=== PATIENT | male | born 1950 | race Caucasian/White ===

== ENCOUNTER 2016-03-28 08:46 | Outpatient (CLI) | payer OTHER, MEDICAID ==
[~2016-03-28] VITALS: Ht 167.6 cm; Wt 104.5 kg
[~2016-03-28 08:46] MED LIST: ADV100INH INH; ALB2.5NEB NEB; AMIO20TA PO; ASPI1TAB PO; ASPI325T PO; ASPI81TAEC PO; ATOR40TA PO; AVEL1TAB PO; Albuterol/Ipratropium NEB; CAPT62TA PO; CARV6.25 PO; CEFD1CAP8 PO; CLOP75TA2 PO; DOCU100C PO; FERR325T16 PO; FOLI1TAB2 PO; FURO40TA2 PO; FURO40VL IV; LOVE0.8I SC; METF500T PO; METO25TAB PO; MORP2SY IV; NICO14PA TD; NITR2OI TOP; NITR4TASL SL; PERC5TAB6 PO; Pantoprazole Sodium PO; RAMI1.25 PO; RAMI5CA PO; TORS20TA2 PO; TYLE325T5 PO; VITA500T88 PO; VITMTA PO; WARF4TAB52 PO
[2016-03-28] MEDS ORDERED: IRON DEXTRAN INJ 25 MG in NS 50 ML IV ONE (09:00)
[2016-03-28] MEDS ORDERED: TRAD5TAB PO (09:22)
[2016-03-28] MEDS ORDERED: NITR2PA TD (09:22)
[2016-03-28] MEDS ORDERED: HYDR10TAB PO (09:22)
[2016-03-28] MEDS ORDERED: IRON DEXTRAN INJ 975 MG in NS 250 ML IV ONE (10:00)
== END 2016-03-28 13:45 | disposition home or self-care (01) ==
LOC: M INFU 08:46
PROVIDERS: ATTEND Internal Medicine Nephrology
DX: D50.9 Iron deficiency anemia, unspecified (principal)
CPT/HCPCS: 96365; 96366; J1750

== ENCOUNTER → 2016-04-11 | Outpatient (REF) | payer OTHER, MEDICAID ==
[~2016-04-11] MED LIST changes: +ASCO500T PO; +FERR325T PO; +HYDR-4266 PO; +HYDR10TAB PO; +NITR2PA TD; +RANI150T PO; +TRAD5TAB PO; +WARF-20 PO; +WARF4TAB51 PO
[2016-04-11 15:50] LABS: ALBUMIN 3.4 GM/DL (3.2-5.2); BILIRUBIN,TOTAL 0.2 MG/DL (0.2-1.0); CALCIUM LEVEL 9.2 MG/DL (8.8-10.2); CREATININE FOR GFR 2.14 MG/DL (0.70-1.30); MAGNESIUM LEVEL 2.4 MG/DL (1.8-2.4); PERCENT SATURATION 19.2 % (19.7-37.4); TOTAL PROTEIN 6.8 GM/DL (6.4-8.2)
[2016-04-11 15:57] LABS: MEAN CORPUSCULAR HEMOGLOBIN 28.2 pg (27.0-33.0); MEAN CORPUSCULAR HGB CONC 30.6 g/dl (32.0-36.5); MEAN CORPUSCULAR VOLUME 92.2 fl (80.0-96.0); RED CELL DISTRIBUTION WIDTH 16.2 % (11.5-14.5); WHITE BLOOD COUNT 13.8 K/mm3 (4.0-10.0)
[2016-04-11 15:58] LABS: POTASSIUM SERUM 5.4 MEQ/L (3.5-5.1)
== END ==
LOC: M SFHCSACK 08:15
PROVIDERS: ATTEND Physician Assistant
DX: D50.9 Iron deficiency anemia, unspecified (principal); I10 Essential (primary) hypertension; E11.69 Type 2 diabetes mellitus with other specified complication; K21.9 Gastro-esophageal reflux disease without esophagitis

== ENCOUNTER 2016-05-02 22:07 | Inpatient (IN) | payer OTHER, MEDICAID ==
[~2016-05-02] VITALS: Ht 167.6 cm; Wt 106.7 kg
[~2016-05-02 22:07] MED LIST changes: -ASCO500T PO; -FERR325T PO; -HYDR-4266 PO; -RANI150T PO; -WARF-20 PO; -WARF4TAB51 PO
[2016-05-02] MEDS ORDERED: PANTOPRAZOLE 40MG INJ (PROTONIX) (C9113) As Ordered ONE (22:41)
[2016-05-02 22:53] LABS: BASO # 0.1 K/mm3 (0.0-0.2); BASO % 0.6 % (0.0-1.0); EOS # 0.6 K/mm3 (0.0-0.50); EOS % 4.7 % (0.0-3.0); LARGE UNSTAINED CELL # 0.3 K/mm3 (0.0-0.4); LARGE UNSTAINED CELL % 2.4 % (0.0-4.0); LYMPH # 2.8 K/mm3 (1.5-4.5); LYMPH % 18.1 % (24.0-44.0); MEAN CORPUSCULAR HEMOGLOBIN 27.4 pg (27.0-33.0); MEAN CORPUSCULAR HGB CONC 29.9 g/dl (32.0-36.5); MEAN CORPUSCULAR VOLUME 91.5 fl (80.0-96.0); MONO # 0.8 K/mm3 (0.0-0.8); MONO % 6.2 % (0.0-5.0); NEUTROPHILS # 9.3 K/mm3 (1.8-7.7); PLATELET COUNT, AUTOMATED 394 k/mm3 (150-450); RED CELL DISTRIBUTION WIDTH 17.4 % (11.5-14.5); WHITE BLOOD COUNT 13.6 K/mm3 (4.0-10.0)
[2016-05-02 23:01] LABS: CALCIUM LEVEL 8.8 MG/DL (8.8-10.2); CREATININE FOR GFR 2.26 MG/DL (0.70-1.30); POTASSIUM SERUM 4.9 MEQ/L (3.5-5.1)
[2016-05-02 23:14] LABS: INR 6.72
[2016-05-02] MEDS ORDERED: PHYTONADIONE 10MG/ML INJECTION (J3430) As Ordered ONE (23:21)
[2016-05-02] MEDS ORDERED: ONDANSETRON 4MG/2ML VIAL (J2405) IV PRN (23:45)
[2016-05-02] MEDS ORDERED: DEXTROSE 50% 50 ML SYRINGE IV PRN (23:45)
[2016-05-02] MEDS ORDERED: ACETAMINOPHEN TAB 650MG DOSE (2X325MG) PO PRN (23:45)
[2016-05-02] MEDS ORDERED: GLUCOSE 4 GM CHEW TABLET PO PRN (23:45)
[2016-05-02] MEDS ORDERED: GLUCAGON FOR INJ 1 MG VIAL (J1610) SC PRN (23:45)
[2016-05-03] VITALS (7 sets, daily range): BP systolic 90–153; BP diastolic 50–95
[2016-05-03] MEDS ORDERED: FERR325T PO (00:10)
[2016-05-03] MEDS ORDERED: CARV6.25 PO (00:10)
[2016-05-03] MEDS ORDERED: WARF4TAB51 PO (00:10)
[2016-05-03] MEDS ORDERED: RANI150T PO (00:10)
[2016-05-03] MEDS ORDERED: ASPI81TAEC PO (00:10)
[2016-05-03] MEDS ORDERED: ASCO500T PO (00:10)
[2016-05-03] MEDS ORDERED: TORS20TA2 PO (00:10)
[2016-05-03] MEDS ORDERED: HYDR-4266 PO (00:10)
[2016-05-03] MEDS ORDERED: WARF-20 PO (00:10)
--- NOTE | 2016-05-03 00:45 | HPEPDOC ---
General Date of Admission May 02, 2016 at 23:37 Chief Complaint The patient is a 65-year-old male admitted with a reason for visit of Bleeding On Coumadin. Source: Patient Exam Limitations: No limitations History of Present Illness 65-year-old male with past medical history of CAD with NSTEMI on 08/23/2015, and subsequent CABG 4 on 08/24/2015 on Coumadin, diastolic heart failure, hypertension, and diabetes mellitus presented to the ER with a chief complaint of worsening shortness of breath over the last 5 days. The patient states that he has been feeling short of breath with associated malaise and fatigue during this time. He also notes feeling lightheaded and dizzy as well. He denies any fevers, chills, cough, chest pain, palpitations, abdominal pain, PND, orthopnea , increasing lower extremity swelling, or any nausea/vomiting/diarrhea. Of note , the patient does state that he has been having black colored stools, but notes that this has been evident ever since he started ferrous sulfate for his iron deficiency anemia. He has not noted any dary blood or an increase in the frequency of dark stools. He denies having an EGD or colonoscopy done, or having seen a director biologics in the past. In the ER, the patient was noted to have a hemoglobin of 5.1 and an INR of 6.72. An EKG revealed no acute ST changes compared to previous tracings. The patient's blood pressure in the ER is stable, and there are no signs of any active GI bleeding. A call was placed to the patient's cloth burler Dr. Sánchez , who has advised to reverse the patient's Coumadin effect and to discontinue the Coumadin going forward as he no longer feels that the patient needs it. The patient has been ordered 3 units of packed red blood cells, FFP, and he has also been given a dose of vitamin K here. In addition, a call was also place to Dr. Chandler of GI by the ER physician and will see the patient in consult tomorrow for evaluation for an EGD. The patient will be admitted under the hospitalist service for further evaluation and management. Home Medications Scheduled Ascorbic Acid (Ascorbic Acid) 500 Mg Tab 500 MG PO DAILY (Reported) Aspirin (Aspirin EC) 81 Mg Tabec 81 MG PO DAILY (Reported) Atorvastatin Calcium (Atorvastatin Calcium) 40 Mg Tab 40 MG PO QHS (Reported) Carvedilol (Carvedilol) 6.25 Mg Tab 6.25 MG PO BID (Reported) Ferrous Sulfate (Ferrous Sulfate) 325 Mg Tab 325 MG PO DAILY (Reported) Hydralazine HCl (Hydralazine HCl) 25 Mg Tab 25 MG PO TID (Reported) Linagliptin Base (Tradjenta) 5 Mg Tab 5 MG PO DAILY (Reported) Metformin Hydrochloride (Metformin HCl) 500 Mg Tab 500 MG PO BID (Reported) Multivitamins *[facility]OCK[facility]* (Thera M Plus *[facility]OCK[facility]*) 1 Tab Tab 1 TAB PO DAILY (Reported) Nitroglycerin (Nitroglycerin Transdermal 0.2MG) 1 Patch Tdsy 1 PATCH TD DAILY ( Reported) Torsemide (Torsemide) 20 Mg Tab 30 MG PO BID (Reported) Warfarin Sod (Warfarin Sodium) 4 Mg Tab 4 MG PO 3XW (Reported) Warfarin Sod (Warfarin Sodium) 2 Mg Tab 2 MG PO 4XWK (Reported) Scheduled PRN Ranitidine HCl (Ranitidine HCl) 150 Mg Tab 1 TAB PO DAILY PRN PRN ACID REFLUX ( Reported) Allergies Coded Allergies: No Known Allergies (Unverified , 08/23/15) Past Medical History Medical History As noted in HPI. Family History Significant Family History: No pertinent family hx Social History * Smoker: former Smoker Alcohol: denies Drugs: denies Review of Symptoms Other systems 10 point review of systems negative unless otherwise specified in HPI. Physical Examination General Exam: Positive: Alert, Cooperative, No Acute Distress ENT Exam: Positive: Atraumatic, Mucous membr. moist/pink Neck Exam: Negative: JVD Chest Exam: Positive: Clear to auscultation, Normal air movement Heart Exam: Positive: Normal S1, Normal S2, Rate Normal Abdomen Exam: Positive: Soft, Negative: Tenderness Extremity Exam: Negative: Swelling, Tenderness Laboratory Data Labs 24H Laboratory Tests 2 05/02/16 22:14: Anion Gap 10, White Blood Count 13.6H, Red Blood Count 1.86L, Hemoglobin 5.1*L, Hematocrit 17.0L, Mean Corpuscular Volume 91.5, Mean Corpuscular Hemoglobin 27.4 , Mean Corpuscular Hemoglobin Concent 29.9L, Red Cell Distribution Width 17.4H, Platelet Count 394, Neutrophils (%) (Auto) 68.0H, Lymphocytes (%) (Auto) 18.1L, Monocytes (%) (Auto) 6.2H, Eosinophils (%) (Auto) 4.7H, Basophils (%) (Auto) 0.6 , Neutrophils # (Auto) 9.3H, Lymphocytes # (Auto) 2.8, Monocytes # (Auto) 0.8, Eosinophils # (Auto) 0.6H, Basophils # (Auto) 0.1, Blood Urea Nitrogen 131H, Creatinine 2.26H, Sodium Level 146H, Potassium Level 4.9, Chloride Level 109H, Carbon Dioxide Level 27, Calcium Level 8.8, Glomerular Filtration Rate 31.0L, Large Unclassified Cells # 0.3, Large Unclassified Cells % 2.4, Prothromb Time International Ratio 6.72*H, Prothrombin Time 58.2H CBC/BMP Laboratory Tests 05/02/16 22:14 Calcium Level 8.8, Red Blood Count 1.86 L, Mean Corpuscular Volume 91.5, Mean Corpuscular Hemoglobin 27.4, Mean Corpuscular Hemoglobin Concent 29.9 L, Red Cell Distribution Width 17.4 H, Neutrophils (%) (Auto) 68.0 H, Lymphocytes (%) ( Auto) 18.1 L, Monocytes (%) (Auto) 6.2 H, Eosinophils (%) (Auto) 4.7 H, Basophils (%) (Auto) 0.6, Neutrophils # (Auto) 9.3 H, Lymphocytes # (Auto) 2.8, Monocytes # (Auto) 0.8, Eosinophils # (Auto) 0.6 H, Basophils # (Auto) 0.1 Plan / VTE VTE Prophylaxis Ordered?: Yes Plan Plan Symptomatic anemia secondary to Coumadin coagulopathy Admit to the PCU Hemoglobin noted to be 5.1 and INR noted to be 6.7 to 3 units of packed red blood cells, and FFP have been ordered The patient has been administered a dose of vitamin K in the ER The patient's Coumadin will be discontinued, and no longer is indicated moving forward as per Dr. Sánchez cardiology No active GI bleeding at this time-Dr. Chandler of GI called by the ER physician, will see the patient in consult for evaluation for an EGD We will keep the patient nothing by mouth Continue on Protonix We will repeat CBC and INR in the a.m. Acute on chronic kidney injury Likely secondary to intravascular volume depletion Serum creatinine noted to be 2.26, baseline closer to 1.8-2.0 Patient has received some gentle IV fluid hydration in the ER We'll transfuse blood products as noted above Repeat BMP in a.m. Coronary artery disease status post NSTEMI, and subsequent CABG 4 in August 2015 On aspirin, Coreg, and statin Hypertension, stable Continue BP meds with holding parameters Type 2 diabetes mellitus Continue on insulin sliding scale History of Diastolic congestive heart failure Does not appear to be in decompensated state at this time We'll continue torsemide 30 mg twice a day Patient may need an additional dose of torsemide between receiving blood products We will continue to monitor his volume status DVT prophylaxis-TEDs The patient will be admitted under the service of Dr. Camacho who will start to follow the patient on 05/03/16 at 7am. LACEY CRUZ MD May 03, 2016 00:45
--- NOTE | 2016-05-03 02:06 | REP ---
Clinical: Acute shortness of breath . Comparison: 09/06/2015 . Findings: The mediastinum and cardiac silhouette are stable and within normal limits for portable technique. The lung brady are clear without acute consolidation, effusion, or pneumothorax. Skeletal structures are intact. Impression: Normal portable chest x-ray Signed by Jim Higginbotham MD 05/03/2016 01:57 A
[2016-05-03] MEDS: HumaLOG INSULIN (NovoLOG) PER UNIT SC SCH ×4 (07:30→21:00)
[2016-05-03] MEDS ORDERED: MULTIVITAMINS/MINERALS THERAP 1 TAB PO SCH (09:00)
[2016-05-03] MEDS ORDERED: FERROUS SULFATE 325MG TAB PO SCH (09:00)
[2016-05-03] MEDS ORDERED: ASPIRIN 81 MG ENTERIC TAB PO SCH (09:00)
[2016-05-03] MEDS ORDERED: TORSEMIDE 10 MG TABLET PO SCH (09:00)
[2016-05-03] MEDS: SUCRALFATE SUSP 1GM/10ML UD PO SCH ×3 (09:47→17:48)
[2016-05-03] MEDS: PANTOPRAZOLE 40MG INJ (PROTONIX) (C9113) IV SCH ×2 (09:49→21:02)
[2016-05-03] MEDS: ASCORBIC ACID 500 MG TAB PO SCH (09:49)
[2016-05-03] MEDS: CARVedilol 6.25 MG TAB PO SCH ×2 (09:49→20:58)
[2016-05-03] MEDS: **hydrALAZINE HCL** 25 MG TAB PO SCH ×3 (09:50→21:21)
[2016-05-03 11:02] LABS: INR 3.17
[2016-05-03 11:08] LABS: REASON FOR REVIEW COMPREHENSIVE REVIEW
[2016-05-03 11:09] LABS: WHITE BLOOD COUNT 11.6 K/mm3 (4.0-10.0)
[2016-05-03 11:10] LABS: MEAN CORPUSCULAR HEMOGLOBIN 28.5 pg (27.0-33.0); MEAN CORPUSCULAR HGB CONC 31.5 g/dl (32.0-36.5); MEAN CORPUSCULAR VOLUME 90.4 fl (80.0-96.0); PLATELET COUNT, AUTOMATED 320 k/mm3 (150-450); RED CELL DISTRIBUTION WIDTH 16.2 % (11.5-14.5); RETIC HEMOGLOBIN CONTENT CHr 29.4 PG (24-36); RETICULOCYTE ABSOLUTE ADVIA212 119 x10(9)/L (17-77)
[2016-05-03 11:15] LABS: CALCIUM LEVEL 8.2 MG/DL (8.8-10.2); CREATININE FOR GFR 2.06 MG/DL (0.70-1.30); GLOMERULAR FILTRATION RATE 34.5 (>49); PERCENT SATURATION 88.4 % (19.7-37.4); POTASSIUM SERUM 4.6 MEQ/L (3.5-5.1)
--- NOTE | 2016-05-03 11:51 | IPN ---
DATE: 05/03/2016 Patient seen and examined at the bedside. Chart has been reviewed. This morning, patient does not complain of any chest pain, pressure, tightness, palpitations, lightheadedness, no shortness of breath. Some fatigue. No dark tarry stools in the emergency room but says had dark melanotic stools at home. Vital signs: Temperature is afebrile, blood pressure 147/66, heart rate is 85 sinus rhythm. Generally, patient is awake, alert, oriented times three, answers questions appropriately. No cyanosis. Slight pallor. No icterus or jaundice. No jugular venous distention. No thyromegaly. Lungs: Diminished but clear to auscultation. No wheezing, rales or rhonchi. Heart: S1, S2. Sinus rhythm. Prior median sternotomy scar that is well healed. Abdomen: Soft, nontender, nondistended. Obese abdomen. Positive bowel sounds. Extremities: Trace edema. 05/02/2016: CBC and metabolic panel have been reviewed. No current blood work on 05/03/2016. ASSESSMENT AND PLAN: This is a 65-year-old male with prior history of coronary artery disease (CAD, non-ST elevation myocardial infarction (MO) on 08/23/2015 with subsequent coronary artery bypass graft (CABG) times four vessels on 08/24/2015, on Coumadin secondary to small blood clot, diastolic heart failure, hypertension, type 2 diabetes and obesity, presents to the emergency room complaining of shortness of breath over the past 5 days, malaise and fatigue, some lightheadedness and dizziness without fever or chills, cough, chest pain, palpitations, abdominal pain, PND. He has noted some black tarry stools and had been on ferrous sulfate for iron deficiency anemia. Denes any bright red blood per rectum, hematemesis. No prior endoscopies or colonoscopies in the past. Patient was found to have a hemoglobin of 5.1, INR of 6.72. EKG showed no acute changes per Dr. Méndez, hospitalist addiction professional who admitted the patient. Patient's slurry blender Dr. Sánchez recommended reversal of the Coumadin and to discontinue Coumadin in the future as the patient does not require it. So far, patient has received 3 units of red blood cell transfusion, fresh frozen plasma and a dose of vitamin K. Dr. Chandler, oil pit attendant, is being consulted for symptomatic anemia secondary to GI bleed from Coumadin coagulopathy. IMPRESSION: 1. Symptomatic anemia/Acute blood loss anemia. . Patient will be transfused 3 units of red blood cells, fresh frozen plasma and vitamin K have been used to reverse the effects of Coumadin due to Coumadin coagulopathy. Continue with GI workup with endoscopy with Dr. Chandler and possible colonoscopy. Nothing but mouth currently and on Protonix. Continue with hemoglobin and hematocrit checks every 6 hours, monitor for active bleeding, avoid non-steroidal anti-inflammatory drugs (NSAID)s and other anticoagulants. 2. Coumadin coagulopathy. Patient's Coumadin will be stopped. He had been taking the Coumadin for a clot status post coronary artery bypass graft (CABG). Per his slurry blender Dr. Sánchez, may discontinued this all together after discharge. Will reverse with FFP until INR<1.5 3. History of coronary artery disease (CAD), non-ST elevation myocardial infarction (MO) with complaints of shortness of breath. Cardiac markers have been cycled. Continue to monitor for acute ischemia in light of severe anemia. Patient has had prior history of CABG times four vessels in August 2015. He is continued on Coreg and statin. Will hold off on patient's aspirin for now. 4. Acute on chronic kidney disease. Baseline creatinine is 1.8 to 2. Continue with gentle fluid hydration due to history of diastolic heart failure. 5. Type 2 diabetes. Continue with hypoglycemic protocol, sliding scale every 6 hours while nothing by mouth and before food nightly once patient resumes a diet. 6. Hypertension, stable. Continue on Coreg. 7. Hyperlipidemia, continue on statin. 8. History of diastolic heart failure, appears to be compensated for now. He is currently n.p.o. May resume his home dose of torsemide 30 twice daily. 9. Deep venous thrombosis (DVT) prophylaxis. compression stockings. [facility]
[2016-05-03] MEDS ORDERED: FUROSEMIDE 20 MG/2 ML VIAL (J1940) IV SCH (13:00)
[2016-05-03] MEDS ORDERED: FUROSEMIDE 20 MG/2 ML VIAL (J1940) IV ONE (14:00)
[2016-05-03] MEDS ORDERED: GOLYTELY SOLN 4000 ML BTL PO ONE (15:00)
--- NOTE | 2016-05-03 16:31 | EDDOCDS ---
Nurse's Notes [facility] Name: Stephen Bass Age: 65 yrs Sex: Male : 1950 Arrival Date: 05/02/2016 Time: 22:07 Bed 20 Private MD: Briana Jara PA-C Diagnosis: Gastrointestinal hemorrhage, unspecified-upper;Adverse effect of anticoagulant antagonists, vitamin K and other coagulants;Anemia, unspecified-acute blood loss;Acute kidney failure Presentation: 05/02 22:11 Presenting complaint: EMS states: pt started feeling weak for the past few days, pt c/o mlc arms and legs feeling weak. pt states he didn't eat yesterday and ate a half of a sandwich this AM at approx 10:30 AM. pt c/o feeling SOB. The last date and time the patient was known to be well was was at an unknown time on an unknown date. No acute neurological deficit is noted. Pre-hospital glucose is not applicable to this patient. Adult Sepsis Screening: The patient does not have new or worsening altered mentation. Patient has a respiratory rate of greater than or equal to 22 (1 point). Systolic blood pressure is greater than 100. Patient has a qSOFA score of 0- Negative Sepsis Screen. Suicide/Homicide risk assessment- the patient denies having any suicidal and/or homicidal ideations and does not present with any other emotional, behavioral or mental health complaints. Status: Patient is not a passenger service representative or dependent. Transition of care: patient was not received from another setting of care. 22:11 Acuity: CHAU Level 3 [facility] 22:11 Method Of Arrival: Ambulance [facility] Triage Assessment: 22:22 The onset of the patients symptoms was more than three hours ago. General: Appears ill, mlc Behavior is cooperative. Pain: Denies pain. The patient is triaged at the bedside. See Assessment in Nurses Notes section of ED record. Neurological: Level of Consciousness is awake, alert, obeys commands, Oriented to person, place, time, Reports weakness. Respiratory: Airway is patent Respiratory effort is even, labored, Respiratory pattern is regular. Derm: Skin is pale. Historical: - Allergies: No known drug Allergies; - Home Meds: 1. Coumadin MWF 4mg, Tue Thur Sat Sun 2mg Oral tab 1 tab once daily (Last dose: 05/02/2016 16:00) 2. metformin 1,000 mg Oral tab 1 tab 2 times per day (Last dose: 05/02/2016 16:00) 3. furosemide 40 mg Oral tab 1 tab 2 times per day (Last dose: 05/02/2016 16:00) 4. aspirin 81 mg Oral chew 1 tab once daily (Last dose: 05/02/2016 04:00) 5. atorvastatin 40 mg oral tab 1 tab once daily (Last dose: 05/02/2016 16:00) 6. carvedilol 6.25 mg oral tab 1 tab daily 7. ascorbic acid 500 mg oral TbER daily ran out 8. multivitamin Oral cap daily 9. unknown diabetic med 10. hydralazine 25 mg Oral tab three times a day 11. torsemide 20 mg oral tab Unknown - PMHx: Diabetes - NIDDM: controlled; Hypertension; WA; - PSHx: Cataract Surgery- Bilateral; cabag x 4; - The history from nurses notes was reviewed: and I agree with what is documented. - Social history: Smoking status: Patient states former smoker of tobacco. No barriers to communication noted, The patient speaks fluent Greek. - Family history: Not pertinent. - : The pt / caregiver states he / she is on anticoagulants: coumadin. Home medication list is obtained from the patient, [email or web address] import data. - Hospitalizations: : No recent hospitalization is reported. - Exposure Risk Screening:: None identified. - Immunization history:: All immunizations up-to-date. - Social history:: the patient is a non-smoker, the patient does not drink alcohol. Screenin:26 Screening information is obtained from the patient. Fall risk: At risk due to age. mlc Assistance ADL's: requires no assistance with activities of daily living. Abuse/DV Screen: The patient / caregiver reports he/she is: not in a situation that causes fear, pain or injury. Nutritional screening: No deficits noted. home support is adequate. 05/03 02:35 Advance Directives: Currently, there is a health care proxy, Yoandy Bass, son. There is mlc no active DNR order. There is an active Power of Dope Edger, Yoandy Bass, son. Assessment: 05/02 22:38 General: Appears ill, Behavior is cooperative. Pain: Denies pain. Neurological: Level mlc of Consciousness is awake, alert, obeys commands, Oriented to person, place, time. Cardiovascular: Heart tones S1 S2 present Rhythm is irregular. Respiratory: Airway is patent Respiratory effort is labored, Respiratory pattern is regular, Breath sounds are diminished Breath sounds with wheezes expiratory. GI: Abdomen is obese, Bowel sounds present X 4 quads. Abd is soft X 4 quads. Derm: Skin is pale. 23:28 Reassessment: Patient appears in no apparent distress at this time. Patient states mlc symptoms have not improved. pt resting comfortably in bed, pt medicated per order. IV fluids infusing per order. 05/03 00:39 General: blood infusing per order. pt resting comfortably in bed. resp easy/unlabored. mlc lung sounds diminished. pt offers no complaints. . 01:30 General: Appears in no apparent distress, comfortable, to be sleeping. General: blood mlc transfusing per order. Respiratory: Airway is patent Respiratory effort is even, unlabored, Respiratory pattern is regular. 02:33 General: Appears in no apparent distress, comfortable, Behavior is cooperative. mlc General: blood transfusing per order. . Pain: Denies pain. Neurological: Level of Consciousness is awake, alert, Oriented to person, place, time. Respiratory: Airway is patent Respiratory effort is even, unlabored, Respiratory pattern is regular. Derm: Skin is pale. 03:30 Reassessment: Patient appears in no apparent distress at this time. Respiratory: Breath mlc sounds are diminished bilaterally. Breath sounds with wheezes expiratory. 03:30 General: blood transfusing per order. mlc 04:28 General: 2nd unit of blood complete. resp easy/unlabored. pt offers no complaints, pt mlc watching tv. . 05:10 Reassessment: Patient appears in no apparent distress at this time. pt offers no mlc complaints. resp easy/unlabored. . 06:16 General: Appears in no apparent distress, comfortable, Behavior is cooperative. mlc Neurological: Level of Consciousness is awake, alert, Oriented to person, place, time. Cardiovascular: Rhythm is irregular. Respiratory: Breath sounds are diminished bilaterally. Breath sounds with wheezes expiratory. 06:18 General: report given to SANDRA Lee. [facility] Vital Signs: 05/02 22:14 BP 147 / 82 LA Sitting (auto/reg); Pulse 87 MON; Resp 22 S; Temp 98.7(O); Pulse Ox 100% cln on R/A; Weight 105.69 kg (R); Height 5 ft. 6 in. (167.64 cm) (R); Pain 0/10; 22:26 BP 120 / 55 (auto/); mlc 22:27 Pulse 90 MON; Pulse Ox 90% ; mlc 22:56 Pulse 82 MON; Pulse Ox 100% ; mlc 22:56 BP 125 / 51 (auto/); mlc 23:26 BP 145 / 90 (auto/); mlc 23:26 Pulse 82 MON; Pulse Ox 100% ; mlc 23:57 Pulse 84 MON; Pulse Ox 100% ; mlc 05/03 00:05 BP 113 / 62 (auto/); mlc 00:07 Pulse 84 MON; Pulse Ox 100% ; mlc 00:26 BP 115 / 56 (auto/); mlc 00:27 Pulse 80 MON; Pulse Ox 99% ; mlc 00:34 BP 118 / 56 (auto/); mlc 00:35 Pulse 80 MON; Pulse Ox 98% ; mlc 00:56 BP 123 / 60 (auto/); mlc 00:57 Pulse 80 MON; Pulse Ox 99% ; mlc 01:20 Pulse 82 MON; Pulse Ox 98% ; mlc 01:20 BP 134 / 55 (auto/); mlc 01:26 BP 116 / 54 (auto/); mlc 01:26 Pulse 80 MON; Pulse Ox 98% ; mlc 01:50 Pulse 80 MON; Resp 20; Pulse Ox 99% ; mlc 01:56 BP 119 / 59 (auto/); mlc 01:57 Pulse 82 MON; Pulse Ox 99% ; mlc 02:00 BP 123 / 67 (auto/); mlc 02:00 Pulse 80 MON; Pulse Ox 98% ; mlc 02:22 BP 136 / 62 (auto/); mlc 02:23 Pulse 80 MON; Pulse Ox 99% ; mlc 02:26 BP 139 / 53 (auto/); mlc 02:33 Pulse 80 MON; Pulse Ox 99% ; mlc 02:35 Temp 98.1(TE); mlc 02:40 BP 132 / 58 (auto/); mlc 02:41 Pulse 80 MON; Pulse Ox 99% ; mlc 02:56 BP 127 / 68 (auto/); mlc 02:57 Pulse 82 MON; Pulse Ox 98% ; mlc 03:17 Pulse 82 MON; Pulse Ox 99% ; mlc 03:23 Pulse 84 MON; Pulse Ox 99% ; mlc 03:23 BP 126 / 63 (auto/); mlc 03:26 BP 147 / 65 (auto/); mlc 03:27 Pulse 82 MON; Pulse Ox 98% ; mlc 03:56 Pulse 88 MON; Pulse Ox 96% ; mlc 03:56 BP 147 / 66 (auto/); mlc 04:20 Pulse 78 MON; Pulse Ox 98% ; mlc 04:20 BP 171 / 72 (auto/); mlc 04:26 BP 134 / 58 (auto/); mlc 04:26 Pulse 78 MON; Pulse Ox 98% ; mlc 04:47 Pulse 78 MON; Pulse Ox 96% ; mlc 04:56 BP 137 / 68 (auto/); mlc 05:09 Pulse 78 MON; Pulse Ox 97% ; mlc 05:26 BP 147 / 63 (auto/); mlc 05:27 Pulse Ox 98% ; mlc 05:44 BP 155 / 89 (auto/); mlc 05:45 Pulse 78 MON; Pulse Ox 97% ; mlc 05:56 Pulse 86 MON; Pulse Ox 94% ; mlc 05:56 BP 100 / 41 (auto/); mlc 06:17 BP 113 / 65; Pulse 83; Resp 20; Temp 98.6(TE); Pulse Ox 98% on 3 lpm NC; Pain 0/10; mlc 02 22:14 Body Mass Index 37.61 (105.69 kg, 167.64 cm) cln Vitals: 02 22:26 Glucose Measurement D-stick done by EMS 242. Log In Time N/A - ambulance arrival. mlc ED Course: 22:08 Patient visited by Donte Estrada PCA. kb5 22:08 Martha Leone RN is Primary Nurse. kb5 22:08 Briana Jara is Private Physician. kb5 22:08 Patient moved to Waiting kb5 22:08 Patient moved to 17 kb5 22:12 Gilmar Vega MD is Attending Physician. pc 22:14 Triage Initiated mlc 22:15 Patient visited by Joan Lopez PCA. cln 22:35 Patient visited by Gilmar Vega MD. pc 22:38 The patient / caregiver is instructed regarding the plan of care and ED course. Cardiac mlc monitor on. Pulse ox on. NIBP on. 22:38 Inserted saline lock: 20 gauge in right antecubital area and blood collected. The mlc patient tolerated the procedure well. by Moreno Blum RN. O2 via nasal cannula \T\ 2L/min. 22:39 Patient visited by Martha Leone RN. mlc 22:40 TYPE & SCREEN Sent. mlc 22:40 INR Sent. mlc 22:40 Type and Cross, Packed Cells Sent. mlc 22:40 MED Profile Sent. mlc 22:40 CBC with Diff Sent. mlc 22:56 Notified attending ED physician of Critical lab value. H/H 5.1 &17.0. cz 23:04 EKG done. (by ED staff). Reviewed by Gilmar Vega MD. jlm 23:05 Patient visited by Brook Leigh, Import/Export Administrator. jlm 23:06 Patient visited by Martha Leone RN. mlc 23:06 Inserted saline lock: 20 gauge in left antecubital area The patient tolerated the mlc procedure well. 23:18 Notified attending ED physician of Critical lab value. pro time 58.2 and INR 6.72. cz 23:20 FFP Sent. mlc 23:21 [facility] [place] Agreement was scanned into [employer] and attached to record. pm4 23:28 Patient visited by Martha Leone RN. mlc 23:30 José Miguel Méndez is Hospitalizing Provider. pc 02/09 00:20 Blood products: PRBCs X 1 unit given. See transfusion record. mlc 00:41 Patient visited by Martha Leone RN. mlc 02:23 Blood products: PRBCs X 1 unit given. See transfusion record. mlc 02:31 Chest, 1 View Returned. EDMS 02:37 Patient visited by Martha Leone RN. mlc 03:19 Patient visited by Martha Leone RN. mlc 04:31 Patient visited by Martha Leone RN. mlc 05:11 Patient visited by Martha Leone RN. mlc 05:30 Blood products: FFP X 1 unit given. mlc 05:48 Patient visited by Martha Leone RN. mlc 06:17 No procedures done that require assistance. mlc 06:18 Patient visited by Martha Leone RN. mlc 06:18 Patient moved to 20 mlc 09:38 Primary Nurse role handed off by Martha Leone RN srm Administered Medications: 05/02 23:05 Drug: pantoprazole 80 mg [pantoprazole 40 mg intravenous solution] Route: IV; Rate: mlc bolus; Site: right antecubital; 23:05 Drug: pantoprazole 8 mg/hr [pantoprazole 40 mg intravenous solution] Route: IV; Rate: mlc 10 mL/hr; Infused Over: 72 hrs; Site: right antecubital; 05/03 03:18 Follow up: IV Status: Infusion discontinued mlc 05/02 23:13 Drug: NS 0.9% 500 ml [sodium chloride 0.9 % intravenous solution] Route: IV; Rate: mlc bolus; Site: left antecubital; 23:28 Drug: Phytonadione 5 mg [phytonadione (vitamin K1) 10 mg/mL injection solution (0.5 mlc mL)] Route: Sub-Q; Site: abdomen; Intake: 05/03 03:18 IV: 50.00ml; Total: 50.00ml. mlc 03:18 IV: 380.00ml (PRBC); Total: 430.00ml. mlc 04:30 IV: 426.00ml (PRBC); Total: 856.00ml. mlc Output: 05:10 Urine: 375.00ml (Voided); Total: 375.00ml. mlc Order Results: Lab Order: CBC with Diff; SPEC'M 05/02/16 22:14 Test: WHITE BLOOD COUNT; Value: 13.6; Range: 4.0-10.0; Abnormal: Above high normal; Units: K/mm3; Status: F Test: RED BLOOD COUNT; Value: 1.86; Range: 4.30-6.10; Abnormal: Below low normal; Units: M/mm3; Status: F Test: HEMOGLOBIN; Value: 5.1; Range: 14.0-18.0; Abnormal: Critical Low; Units: g/dl; Status: F Test: HEMATOCRIT; Value: 17.0; Range: 42.0-52.0; Abnormal: Below low normal; Units: %; Status: F Test: MEAN CORPUSCULAR VOLUME; Value: 91.5; Range: 80.0-96.0; Units: fl; Status: F Test: MEAN CORPUSCULAR HEMOGLOBIN; Value: 27.4; Range: 27.0-33.0; Units: pg; Status: F Test: MEAN CORPUSCULAR HGB CONC; Value: 29.9; Range: 32.0-36.5; Abnormal: Below low normal; Units: g/dl; Status: F Test: RED CELL DISTRIBUTION WIDTH; Value: 17.4; Range: 11.5-14.5; Abnormal: Above high normal; Units: %; Status: F Test: PLATELET COUNT, AUTOMATED; Value: 394; Range: 150-450; Units: k/mm3; Status: F Test: NEUTROPHILS %; Value: 68.0; Range: 36.0-66.0; Abnormal: Above high normal; Units: %; Status: F Test: LYMPH %; Value: 18.1; Range: 24.0-44.0; Abnormal: Below low normal; Units: %; Status: F Test: MONO %; Value: 6.2; Range: 0.0-5.0; Abnormal: Above high normal; Units: %; Status: F Test: EOS %; Value: 4.7; Range: 0.0-3.0; Abnormal: Above high normal; Units: %; Status: F Test: BASO %; Value: 0.6; Range: 0.0-1.0; Units: %; Status: F Test: LARGE UNSTAINED CELL %; Value: 2.4; Range: 0.0-4.0; Units: %; Status: F Test: NEUTROPHILS #; Value: 9.3; Range: 1.8-7.7; Abnormal: Above high normal; Units: K/mm3; Status: F Test: LYMPH #; Value: 2.8; Range: 1.5-4.5; Units: K/mm3; Status: F Test: MONO #; Value: 0.8; Range: 0.0-0.8; Units: K/mm3; Status: F Test: EOS #; Value: 0.6; Range: 0.0-0.50; Abnormal: Above high normal; Units: K/mm3; Status: F Test: BASO #; Value: 0.1; Range: 0.0-0.2; Units: K/mm3; Status: F Test: LARGE UNSTAINED CELL #; Value: 0.3; Range: 0.0-0.4; Units: K/mm3; Status: F Lab Order: [facility] Profile; [facility]' 05/02/16 22:14 Test: GLUCOSE, FASTING; Value: 166; Range: 80-110; Abnormal: Above high normal; Units: MG/DL; Status: F Test: BLOOD UREA NITROGEN; Value: 131; Range: 7-18; Abnormal: Above high normal; Units: MG/DL; Status: F Test: CREATININE FOR GFR; Value: 2.26; Range: 0.70-1.30; Abnormal: Above high normal; Units: MG/DL; Status: F Test: GLOMERULAR FILTRATION RATE; Value: 31.0; Range: >49; Abnormal: Below low normal; Status: F Test: SODIUM LEVEL; Value: 146; Range: 136-145; Abnormal: Above high normal; Units: MEQ/L; Status: F Test: POTASSIUM SERUM; Value: 4.9; Range: 3.5-5.1; Units: MEQ/L; Status: F Test: CHLORIDE LEVEL; Value: 109; Range: 98-107; Abnormal: Above high normal; Units: MEQ/L; Status: F Test: CARBON DIOXIDE LEVEL; Value: 27; Range: 21-32; Units: MEQ/L; Status: F Test: ANION GAP; Value: 10; Range: 8-16; Units: MEQ/L; Status: F Test: CALCIUM LEVEL; Value: 8.8; Range: 8.8-10.2; Units: MG/DL; Status: F Test Note: ; Units are mL/min/1.73 m2 Chronic Kidney Disease Staging per NKF: Stage I & II GFR >=60 Normal to Mildly Decreased Stage III GFR 30-59 Moderately Decreased Stage IV GFR 15-29 Severely Decreased Stage V GFR <15 Very Little GFR Left ESRD GFR <15 on FREIGHT HANDLER Lab Order: INR; SPEC'M 05/02/16 22:14 Test: PROTHROMBIN TIME; Value: 58.2; Range: 12.3-14.5; Abnormal: Above high normal; Units: SECONDS; Status: F Test: INR; Value: 6.72; Abnormal: Above upper panic limits; Status: F Test Note: ; THERAPUTIC HUMAN INR VALUES INDICATIONS NORMAL RANGES PROPHYLAXIS/TREATMENT OF: VENOUS THROMBOSIS 2.0-3.0 PULMONARY EMBOLISM 2.0-3.0 PREVENTION OF SYSTEMIC EMBOLISM FROM: TISSUE HEART VALVES 2.0-3.0 ACUTE MYOCARDIAL INFARCTION 2.0-3.0 VALVULAR HEART DISEASE 2.0-3.0 ATRIAL FIBRILLATION 2.0-3.0 MECHANICAL VALVES(HIGH RISK) 2.5-3.5 RECURRENT MYOCARDIAL INFARCTION 2.5-3.5 Lab Order: TYPE & SCREEN; SPEC'M 05/02/16 22:14 Test: BLOOD TYPE; Value: A POS; Status: F Test: AB SCREEN (INDIRECT BREE)VIS; Value: NEGATIVE; Status: F Test: IMMEDIATE SPIN CROSSMATCH; Value: [id number] A POSITIVE Compatible? Y; Status: F Test: IMMEDIATE SPIN CROSSMATCH; Value: [id number] A POSITIVE Compatible? Y; Status: F Test: IMMEDIATE SPIN CROSSMATCH; Value: [id number] A POSITIVE Compatible? Y; Status: F Test: IMMEDIATE SPIN CROSSMATCH; Value: [id number] A POSITIVE Compatible? Y; Status: F Test: IMMEDIATE SPIN CROSSMATCH; Value: [id number] A POSITIVE Compatible? Y; Status: F Lab Order: BASIC METABOLIC PROFILE; SPEC'M 05/03/16 10:33 Test: GLUCOSE, FASTING; Value: 159; Range: 80-110; Abnormal: Above high normal; Units: MG/DL; Status: F Test: BLOOD UREA NITROGEN; Value: 120; Range: 7-18; Abnormal: Above high normal; Units: MG/DL; Status: F Test: CREATININE FOR GFR; Value: 2.06; Range: 0.70-1.30; Abnormal: Above high normal; Units: MG/DL; Status: F Test: GLOMERULAR FILTRATION RATE; Value: 34.5; Range: >49; Abnormal: Below low normal; Status: F Test: SODIUM LEVEL; Value: 151; Range: 136-145; Abnormal: Above high normal; Units: MEQ/L; Status: F Test: POTASSIUM SERUM; Value: 4.6; Range: 3.5-5.1; Units: MEQ/L; Status: F Test: CHLORIDE LEVEL; Value: 115; Range: 98-107; Abnormal: Above high normal; Units: MEQ/L; Status: F Test: CARBON DIOXIDE LEVEL; Value: 26; Range: 21-32; Units: MEQ/L; Status: F Test: ANION GAP; Value: 10; Range: 8-16; Units: MEQ/L; Status: F Test: CALCIUM LEVEL; Value: 8.2; Range: 8.8-10.2; Abnormal: Below low normal; Units: MG/DL; Status: F Test Note: ; Units are mL/min/1.73 m2 Chronic Kidney Disease Staging per NKF: Stage I & II GFR >=60 Normal to Mildly Decreased Stage III GFR 30-59 Moderately Decreased Stage IV GFR 15-29 Severely Decreased Stage V GFR <15 Very Little GFR Left ESRD GFR <15 on FREIGHT HANDLER Lab Order: COMPLETE BLOOD COUNT; SPEC05/03/16 10:33 Test: WHITE BLOOD COUNT; Value: 11.6; Range: 4.0-10.0; Abnormal: Above high normal; Units: K/mm3; Status: F Test: RED BLOOD COUNT; Value: 2.58; Range: 4.30-6.10; Abnormal: Below low normal; Units: M/mm3; Status: F Test: HEMOGLOBIN; Value: 7.3; Range: 14.0-18.0; Units: g/dl; Status: F Test: HEMATOCRIT; Value: 23.3; Range: 42.0-52.0; Abnormal: Below low normal; Units: %; Status: F Test: MEAN CORPUSCULAR VOLUME; Value: 90.4; Range: 80.0-96.0; Units: fl; Status: F Test: MEAN CORPUSCULAR HEMOGLOBIN; Value: 28.5; Range: 27.0-33.0; Units: pg; Status: F Test: MEAN CORPUSCULAR HGB CONC; Value: 31.5; Range: 32.0-36.5; Abnormal: Below low normal; Units: g/dl; Status: F Test: RED CELL DISTRIBUTION WIDTH; Value: 16.2; Range: 11.5-14.5; Abnormal: Above high normal; Units: %; Status: F Test: PLATELET COUNT, AUTOMATED; Value: 320; Range: 150-450; Units: k/mm3; Status: F Lab Order: PROTHROMBIN TIME PROFILE\E\INR; 05/03/16 10:33 Test: PROTHROMBIN TIME; Value: 32.5; Range: 12.3-14.5; Abnormal: Above high normal; Units: SECONDS; Status: F Test: INR; Value: 3.17; Status: F Test Note: ; THERAPUTIC HUMAN INR VALUES INDICATIONS NORMAL RANGES PROPHYLAXIS/TREATMENT OF: VENOUS THROMBOSIS 2.0-3.0 PULMONARY EMBOLISM 2.0-3.0 PREVENTION OF SYSTEMIC EMBOLISM FROM: TISSUE HEART VALVES 2.0-3.0 ACUTE MYOCARDIAL INFARCTION 2.0-3.0 VALVULAR HEART DISEASE 2.0-3.0 ATRIAL FIBRILLATION 2.0-3.0 MECHANICAL VALVES(HIGH RISK) 2.5-3.5 RECURRENT MYOCARDIAL INFARCTION 2.5-3.5 Lab Order: PATHOLOGIST REVIEW COMPREHENSI; [facility]05/03/16 10:33 Test: SLIDE REVIEW; Value: Report; Status: F Test: SOURCE; Value: PERIPHERAL SMEAR; Status: F Test: REASON FOR REVIEW; Value: COMPREHENSIVE REVIEW; Status: F Test Note: ; Slide and/or specimen referred to Pathologist for review. Results of the review are located in the EMR Pathology module under Peripheral Smear when completed. Lab Order: RETICULOCYTE COUNT; 05/03/16 10:33 Test: RETICULOCYTE % [id number]; Value: 4.60; Range: 0.5-1.5; Abnormal: Above high normal; Units: %; Status: F Test: RETICULOCYTE ABSOLUTE [id number]; Value: 119; Range: 17-77; Abnormal: Above high normal; Units: x10(9)/L; Status: F Test: RETIC HEMOGLOBIN CONTENT CHr; Value: 29.4; Range: 24-36; Units: PG; Status: F Lab Order: TOTAL IRON BINDING CAPACIT; 05/03/16 10:33 Test: IRON (FE); Value: 251; Range: 65-175; Abnormal: Above high normal; Units: UG/DL; Status: F Test: TOTAL IRON BINDING CAPACITY; Value: 284; Range: 250-450; Units: UG/DL; Status: F Test: PERCENT SATURATION; Value: 88.4; Range: 19.7-37.4; Abnormal: Above high normal; Units: %; Status: F Lab Order: Fingerstick Blood Sugar; 05/03/16 07:48 Test: BEDSIDE GLUCOSE; Value: 173; Range: 80-115; Abnormal: Above high normal; Units: MG/DL; Status: F Lab Order: Fingerstick Blood Sugar; [facility]05/03/16 12:39 Test: BEDSIDE GLUCOSE; Value: 157; Range: 80-115; Abnormal: Above high normal; Units: MG/DL; Status: F Radiology Order: Chest, 1 View Test: Chest, 1 View REASON FOR EXAMINATION: Shortness of Breath; Clinical: Acute shortness of breath .; ; Comparison: 09/06/2015 .; ; Findings:; The mediastinum and cardiac silhouette are stable and within normal limits for; portable technique. The lung brady are clear without acute consolidation,; effusion, or pneumothorax. Skeletal structures are intact.; ; Impression:; Normal portable chest x-ray; ; ; Signed by; Jim Higginbotham MD 05/03/2016 01:57 A; Outcome: 05/02 23:30 Decision to Hospitalize by Provider. pc 05/03 16:29 Patient left the ED. ld5 Signatures: Dispatcher [employer] EDMS Gilmar Vega MD MD pc Michelson, Staci, RN RN Juan Ramon Pizano RN RN cz Bancroft, Kristopher, POURED CONCRETE WALL TECHNICIAN POURED CONCRETE WALL TECHNICIAN kb5 Mikala Perkins RN RN ld5 Brook Leigh, Import/Export Administrator Unit Martha Dhillon RN RN mlc Nichols, Crystal, POURED CONCRETE WALL TECHNICIAN POURED CONCRETE WALL TECHNICIAN sharronn Mirza Lira, Reg Reg pm4 Corrections: (The following items were deleted from the chart) 05/02 22:26 22:22 Home Meds: unknown BP med three times a day; mlc mlc 05/03 02:35 02:33 General: Appears in no apparent distress, comfortable, to be sleeping. mlc mlc 02:35 02:33 Respiratory: Airway is patent Respiratory effort is even, unlabored, Respiratory mlc pattern is regular, mlc 02:35 02:33 General: blood transfusing per order. mlc mlc MTDD
--- NOTE | 2016-05-03 16:31 | EDDOCDS ---
Physician Documentation [facility] Name: Stephen Bass Age: 65 yrs Sex: Male : 1950 Arrival Date: 05/02/2016 Time: 22:07 Bed 20 Private MD: Briana Jara PA-C Disposition: 05/02 23:28 Critical Care:. pc Disposition: 05/02/16 23:30 Hospitalization ordered by José Miguel Méndez for Inpatient Admission. Preliminary diagnosis are Gastrointestinal hemorrhage, unspecified - upper, Adverse effect of anticoagulant antagonists, vitamin K and other coagulants, Anemia, unspecified - acute blood loss, Acute kidney failure. - Bed requested for M PCU. - Status is Inpatient Admission. ld5 - Condition is Stable. - Problem is new. - Symptoms have improved. HPI: 22:48 This 65 yrs old Male presents to ER via Ambulance with complaints of Weakness.pc 22:48 The history is obtained from the patient, the patient's family/friend. He has been pc feeling progressively weaker for the past 3 weeks. He denies any infectious symptoms, fevers or chills, cough, chest pain, abdominal pain. He has black stools due to iron supplementation. He was seen by his PCP in mid-February and Mid-March, and per her records and the patient's own account of the visits, he was advised that his labs were good and that he did not need follow up until June. However, his H+H dropped from 10.7/33.21 to 7.4/24.2 and was not addressed. 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 His BUN has increased from 64 to 80 to 105 from December to March, his Cr increased from 1.49 to 1.78 to 2.14 in the same time period. Historical: - Allergies: No known drug Allergies; - Home Meds: 1. Coumadin MWF 4mg, Tue Thur Sat Sun 2mg Oral tab 1 tab once daily (Last dose: 05/02/2016 16:00) 2. metformin 1,000 mg Oral tab 1 tab 2 times per day (Last dose: 05/02/2016 16:00) 3. furosemide 40 mg Oral tab 1 tab 2 times per day (Last dose: 05/02/2016 16:00) 4. aspirin 81 mg Oral chew 1 tab once daily (Last dose: 05/02/2016 04:00) 5. atorvastatin 40 mg oral tab 1 tab once daily (Last dose: 05/02/2016 16:00) 6. carvedilol 6.25 mg oral tab 1 tab daily 7. ascorbic acid 500 mg oral TbER daily ran out 8. multivitamin Oral cap daily 9. unknown diabetic med 10. hydralazine 25 mg Oral tab three times a day 11. torsemide 20 mg oral tab Unknown - PMHx: Diabetes - NIDDM: controlled; Hypertension; [place]; - PSHx: Cataract Surgery- Bilateral; cabag x 4; - The history from nurses notes was reviewed: and I agree with what is documented. - Social history: Smoking status: Patient states former smoker of tobacco. No barriers to communication noted, The patient speaks fluent [place]. - Family history: Not pertinent. - : The pt / caregiver states he / she is on anticoagulants: coumadin. Home medication list is obtained from the patient, [employer] import data. - Hospitalizations: : No recent hospitalization is reported. - Exposure Risk Screening:: None identified. - Immunization history:: All immunizations up-to-date. - Social history:: the patient is a non-smoker, the patient does not drink alcohol. ROS: 22:48 All systems are negative except as listed. pc Exam: 22:48 General Appearance: no acute distress, alert. pc 22:48 EENT: ears, nose and throat normal, pharynx normal, mucous membranes moist pale conjunctiva. 22:48 Neck: The exam reveals no acute abnormalities. ROM is normal and painless. No nuchal rigidity is noted.. 22:48 Respiratory: no respiratory distress, normal breath sounds, PO 92% on RA. 22:48 CVS: regular pulse rate, regular rhythm, normal S1 and S2, no murmurs, strong peripheral pulses, normal capillary refill. 22:48 Abdomen: soft, non-tender, no organomegaly, normal bowel sounds, Rectal exam: stool is guaiac positive, black. 22:48 Back: normal inspection. 22:48 Skin: warm, dry, the skin appears pale, diffusely. 22:48 Extremities: The extremities have a grossly normal appearance. 22:48 Neuro: oriented x 3, cranial nerves normal as tested, no motor deficits, no sensory deficits. 22:48 Psych: normal mood. Vital Signs: 22:14 BP 147 / 82 LA Sitting (auto/reg); Pulse 87 MON; Resp 22 S; Temp 98.7(O); Pulse Ox 100% cln on R/A; Weight 105.69 kg / 233.01 lbs (R); Height 5 ft. 6 in. (167.64 cm) (R); Pain 0/10; 22:26 BP 120 / 55 (auto/); mlc 22:27 Pulse 90 MON; Pulse Ox 90% ; mlc 22:56 Pulse 82 MON; Pulse Ox 100% ; mlc 22:56 BP 125 / 51 (auto/); mlc 23:26 BP 145 / 90 (auto/); mlc 23:26 Pulse 82 MON; Pulse Ox 100% ; mlc 23:57 Pulse 84 MON; Pulse Ox 100% ; mlc 05/03 00:05 BP 113 / 62 (auto/); mlc 00:07 Pulse 84 MON; Pulse Ox 100% ; mlc 00:26 BP 115 / 56 (auto/); mlc 00:27 Pulse 80 MON; Pulse Ox 99% ; mlc 00:34 BP 118 / 56 (auto/); mlc 00:35 Pulse 80 MON; Pulse Ox 98% ; mlc 00:56 BP 123 / 60 (auto/); mlc 00:57 Pulse 80 MON; Pulse Ox 99% ; mlc 01:20 Pulse 82 MON; Pulse Ox 98% ; mlc 01:20 BP 134 / 55 (auto/); mlc 01:26 BP 116 / 54 (auto/); mlc 01:26 Pulse 80 MON; Pulse Ox 98% ; mlc 01:50 Pulse 80 MON; Resp 20; Pulse Ox 99% ; mlc 01:56 BP 119 / 59 (auto/); mlc 01:57 Pulse 82 MON; Pulse Ox 99% ; mlc 02:00 BP 123 / 67 (auto/); mlc 02:00 Pulse 80 MON; Pulse Ox 98% ; mlc 02:22 BP 136 / 62 (auto/); mlc 02:23 Pulse 80 MON; Pulse Ox 99% ; mlc 02:26 BP 139 / 53 (auto/); mlc 02:33 Pulse 80 MON; Pulse Ox 99% ; mlc 02:35 Temp 98.1(TE); mlc 02:40 BP 132 / 58 (auto/); mlc 02:41 Pulse 80 MON; Pulse Ox 99% ; mlc 02:56 BP 127 / 68 (auto/); mlc 02:57 Pulse 82 MON; Pulse Ox 98% ; mlc 03:17 Pulse 82 MON; Pulse Ox 99% ; mlc 03:23 Pulse 84 MON; Pulse Ox 99% ; mlc 03:23 BP 126 / 63 (auto/); mlc 03:26 BP 147 / 65 (auto/); mlc 03:27 Pulse 82 MON; Pulse Ox 98% ; mlc 03:56 Pulse 88 MON; Pulse Ox 96% ; mlc 03:56 BP 147 / 66 (auto/); mlc 04:20 Pulse 78 MON; Pulse Ox 98% ; mlc 04:20 BP 171 / 72 (auto/); mlc 04:26 BP 134 / 58 (auto/); mlc 04:26 Pulse 78 MON; Pulse Ox 98% ; mlc 04:47 Pulse 78 MON; Pulse Ox 96% ; mlc 04:56 BP 137 / 68 (auto/); mlc 05:09 Pulse 78 MON; Pulse Ox 97% ; mlc 05:26 BP 147 / 63 (auto/); mlc 05:27 Pulse Ox 98% ; mlc 05:44 BP 155 / 89 (auto/); mlc 05:45 Pulse 78 MON; Pulse Ox 97% ; mlc 05:56 Pulse 86 MON; Pulse Ox 94% ; mlc 05:56 BP 100 / 41 (auto/); mlc 06:17 BP 113 / 65; Pulse 83; Resp 20; Temp 98.6(TE); Pulse Ox 98% on 3 lpm NC; Pain 0/10; mlc 05/02 22:14 Body Mass Index 37.61 (105.69 kg, 167.64 cm) cln MDM: 05/02 22:37 IV Saline Lock ordered. pc 22:37 Superintendent Job/Pulse Ox/q 30 min VS ordered. pc 22:37 Oxygen at 2L/min via NC ordered. pc 22:37 Transfuse PRBC's 2 units, ensure PRBCs ordered in lab ordered. pc 22:38 CBC with Diff Ordered. EDMS 22:38 MED Profile Ordered. EDMS 22:38 INR Ordered. EDMS 22:38 pantoprazole 80 mg IV at bolus once ordered. pc 22:38 pantoprazole 8 mg/hr IV at 10 mL/hr continuous over 72 hrs; 40mg (10mL): withdraw 10mL pc from 50mL bag of NS then add protonix ordered. 22:38 IV Saline Lock ordered. pc 22:38 Chest, 1 View Ordered. EDMS 22:38 Type and Cross, Packed Cells Ordered. EDMS 22:38 ECG WITH READING ER PHYS+CARDIAG ordered. EDMS 22:39 TYPE & SCREEN Ordered. EDMS 22:48 Differential Diagnosis: UGI bleed with severe anemia on warfarin. Plan: labs, EKG, pc imaging, transfuse, admit. Test interpretation: EKG. 23:04 CBC with Diff Reviewed. pc 23:04 MED Profile Reviewed. pc 23:08 NS 0.9% 500 ml IV at bolus once ordered. pc 23:08 Financial registration complete. pm4 23:14 Physician consultation: Dr. Sathish Chandler regarding patient's condition, and will pc see patient in inpatient room. 23:16 Physician consultation: Dr. Tripp Sánchez MD was contacted at 23:16, regarding pc patient's condition, and he advises that the Coumadin can be completely reversed as he feels confident that the small left atrial clot is now resolved after 7 months of Coumadin therapy. 23:17 Phytonadione 5 mg Sub-Q once ordered. pc 23:18 FFP Ordered. EDMS 23:19 BED REQUEST+ADM ordered. EDMS 23:21 [facility] Payment Agreement was scanned into [employer] and attached to record. pm4 23:28 Data reviewed: old medical records, vital signs, nurses notes, EKG(s), lab test pc results, all radiology studies and available results. Test interpretation: LAB - all labs as ordered have been reviewed, interpreted and considered in the overall management of the clinical presentation; X-RAY - interpreted by me, 1 view chest no acute disease. The patient has been re-examined and re-evaluated. The patient's symptoms have mildly improved after treatment. Physician consultation: Dr. José Miguel Méndez was contacted at 23:29, regarding admission, and will see patient in ED, shortly. Disposition: The historical points, examination findings, and any diagnostic results supporting the provided diagnosis, were discussed with the patient or legal guardian. The need for further work-up and/or treatment in the hospital was explained. 23:54 Transfuse FFP 1 unit, ensure FFP ordered in lab ordered. pc 05/03 00:39 Admission / Observation Status ordered. EDMS 00:39 BASIC METABOLIC PROFILE Ordered. EDMS 00:39 COMPLETE BLOOD COUNT Ordered. EDMS 00:40 PROTHROMBIN TIME PROFILE\E\INR Ordered. EDMS 00:43 NPO DIET ordered. EDMS 00:45 PACKED CELLS Ordered. EDMS 06:48 PATHOLOGIST REVIEW COMPREHENSI Ordered. EDMS 06:49 RETICULOCYTE COUNT Ordered. EDMS 06:49 TOTAL IRON BINDING CAPACIT Ordered. EDMS 08:40 Fingerstick Blood Sugar Ordered. EDMS 12:48 Fingerstick Blood Sugar Ordered. EDMS 12:59 FROZEN PLASMA 24 Ordered. EDMS 12:59 CLEAR LIQUIDS DIET ordered. EDMS 12:59 NPO FOR TEST/PROCEDURE ordered. EDMS 13:04 HEMOGLOBIN & HEMATOCRIT Ordered. EDMS 13:09 BASIC METABOLIC PROFILE Ordered. EDMS 13:19 PACKED CELLS Ordered. EDMS EC/08 22:48 Rate is 82 beats/min. Rhythm is regular, Normal Sinus Rhythm with Unifocal PVCs, 1st pc degree heart block, in trigeminy. QRS [place] is Normal. RI interval is prolonged at 282 msec. QRS interval is normal. QT interval is normal. No Q waves. T waves are Normal. ST Segment is depressed in leads I, II, III, aVL, aVF, V4, V5, V6, <1mm. Clinical impression: Normal Sinus Rhythm, Nonspecific ST-T changes, 1st degree heart block, and frequent PVCs in trigeminy. No change from previous ECG in August,. Administered Medications: 23:05 Drug: pantoprazole 80 mg [pantoprazole 40 mg intravenous solution] Route: IV; Rate: mlc bolus; Site: right antecubital; 23:05 Drug: pantoprazole 8 mg/hr [pantoprazole 40 mg intravenous solution] Route: IV; Rate: mlc 10 mL/hr; Infused Over: 72 hrs; Site: right antecubital; 05/03 03:18 Follow up: IV Status: Infusion discontinued mlc 05/02 23:13 Drug: NS 0.9% 500 ml [sodium chloride 0.9 % intravenous solution] Route: IV; Rate: mlc bolus; Site: left antecubital; 23:28 Drug: Phytonadione 5 mg [phytonadione (vitamin K1) 10 mg/mL injection solution (0.5 mlc mL)] Route: Sub-Q; Site: abdomen; Critical Care Time: 23:28 Critical care time: Bedside Care: 25 minutes, Consultation: 25 minutes, Family pc Intervention: 15 minutes. Total time: 65 minutes Signatures: Dispatcher [employer] Gilmar Fletcher MD MD pc Dickerson, LauraRN RN ld5 Martha Leone RN RN mlc Christelle Serrano RN RN sls2 Mirza Lira, Reg Reg pm4 The chart was reviewed and I authenticate all verbal orders and agree with the evaluation and treatment provided.Corrections: (The following items were deleted from the chart) 22:26 22:22 Home Meds: unknown BP med three times a day; mlc mlc 23:10 22:48 He has been feeling progressively weaker for the past 3 weeks. He denies any pc infectious symptoms, fevers or chills, cough, chest pain, abdominal pain. He has black stools due to iron supplementation. He was seen by his PCP in mid-February and Mid-March, and per her records and the patient's own account of the visits, he was advised that his labs were good and that he did not need follow up until June. However, his H+H dropped from 10.7/33.21 to 7.4/24.2 and was not addressed. 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 pc 05/03 00:43 00:39 2 GRAM SODIUM DIET ordered. EDMS EDMS 00:47 00:39 PACKED CELLS ordered. EDMS EDMS 00:47 00:42 TYPE & SCREEN ordered. EDMS EDMS 06:46 06:22 TOTAL IRON BINDING CAPACIT ordered. EDMS EDMS 06:46 06:22 IRON (FE) ordered. EDMS EDMS 06:50 06:22 RETICULOCYTE COUNT ordered. EDMS EDMS 06:51 06:22 PATHOLOGIST REVIEW COMPREHENSI ordered. EDMS EDMS 06:51 06:46 TOTAL IRON BINDING CAPACIT ordered. EDMS EDMS 13:17 13:08 PACKED CELLS ordered. EDMS EDMS 13:18 13:10 TYPE & SCREEN ordered. EDMS EDMS Attachments: 05/02 23:21 [facility] Payment Agreement pm4 MTDD
[2016-05-03] MEDS: ATORVASTATIN 20 MG TAB PO SCH (21:00)
[2016-05-03 23:51] LABS: CALCIUM LEVEL 8.2 MG/DL (8.8-10.2); CREATININE FOR GFR 1.83 MG/DL (0.70-1.30); GLOMERULAR FILTRATION RATE 39.5 (>49); POTASSIUM SERUM 3.9 MEQ/L (3.5-5.1)
[2016-05-04] VITALS (8 sets, daily range): BP systolic 106–153; BP diastolic 53–85
[2016-05-04] MEDS: SUCRALFATE SUSP 1GM/10ML UD PO SCH ×5 (00:48→23:58)
[2016-05-04 02:05] LABS: MAGNESIUM LEVEL 2.4 MG/DL (1.8-2.4)
[2016-05-04] MEDS: SLF 3 ML SYR IV SCH ×3 (05:19→21:17)
[2016-05-04] MEDS ORDERED: diphenhydrAMINE INJ 50MG/ML VIAL (J1200) IV STA (05:58)
[2016-05-04] MEDS ORDERED: diphenhydrAMINE INJ 50MG/ML VIAL (J1200) As Ordered ONE (05:59)
[2016-05-04] MEDS ORDERED: GOLYTELY SOLN 4000 ML BTL PO ONE (06:00)
--- NOTE | 2016-05-04 06:11 | IPNPDOC ---
Text Note Date of Service The patient was seen on 05/04/16. NOTE Subjective: I was called to the unit this morning to evaluate patient due to and developing a rash status post FFP transfusion. Patient's nurse says he hung the FFP at 445 and around 540 patient developed hives and rash. Patient says that his neck itches. He is complaining of a little trouble breathing. Objective: Vitals: Patient stable on room air Gen.: Patient awake, verbal and able to answer questions appropriately. He does not appear to be in any acute distress Lungs: Bilateral wheezes to auscultation Integumentary: Urticarial rash present over neck and upper back Assessment / Plan: #1: Allergic reaction / transfusion reaction: Patient with mild complaint of difficulty breathing, wheezing on lung auscultation. Order placed for stat 50 mg IV diphenhydramine, order placed for as needed racemic epinephrine inhalation. Nursing instructed to keep a close eye on patient and to monitor for any signs of breathing difficulty. My preceptor for this patient encounter was physically present in the building during the encounter and was fully available. As needed, all aspects of the patient interview, examination, medical decision making process, and medical care plan development were reviewed and approved by the preceptor. Preceptor is aware and concurs with the plan as stated in the body of this note and will attest to such by his/her cosignature. VS,Fishbone, I+O VS, Fishbone, I+O Laboratory Tests 05/03/16 10:33 Calcium Level 8.2 L, Red Blood Count 2.58 L, Mean Corpuscular Volume 90.4, Mean Corpuscular Hemoglobin 28.5, Mean Corpuscular Hemoglobin Concent 31.5 L, Red Cell Distribution Width 16.2 H 05/03/16 23:24 Calcium Level 8.2 L Vital Signs Date Time Temp Pulse Resp B/P Pulse Ox O2 Delivery O2 Flow Rate FiO2 05/04/16 05:35 Room Air 05/03/16 21:21 110/81 05/03/16 20:58 67 05/03/16 17:00 2.0 05/03/16 16:30 97.8 24 94 I&O- Last 24 Hours up to 6 AM 05/04/16 06:00 Intake Total 325 ml Output Total 1700 ml Balance -1375 ml VJ MULTANI DO May 04, 2016 06:11
[2016-05-04] MEDS ORDERED: RACEPINEPHrine 2.25 % UD INHA INH PRN (06:15)
[2016-05-04 06:45] LABS: MEAN CORPUSCULAR HGB CONC 32.9 g/dl (32.0-36.5); MEAN CORPUSCULAR VOLUME 88.1 fl (80.0-96.0); RED CELL DISTRIBUTION WIDTH 17.4 % (11.5-14.5); WHITE BLOOD COUNT 13.2 K/mm3 (4.0-10.0)
[2016-05-04 06:51] LABS: INR 2.02
[2016-05-04 07:02] LABS: CALCIUM LEVEL 8.4 MG/DL (8.8-10.2); CREATININE FOR GFR 1.6 MG/DL (0.70-1.30); GLOMERULAR FILTRATION RATE 46.1 (>49)
[2016-05-04] MEDS: HumaLOG INSULIN (NovoLOG) PER UNIT SC SCH ×4 (07:30→21:00)
[2016-05-04] MEDS ORDERED: PHYTONADIONE 5 MG TAB PO ONE (07:45)
[2016-05-04] MEDS ORDERED: PHYTONADIONE 10MG/ML INJECTION (J3430) SC ONE (08:00)
[2016-05-04] MEDS: **hydrALAZINE HCL** 25 MG TAB PO SCH ×3 (09:00→21:14)
[2016-05-04] MEDS: CARVedilol 6.25 MG TAB PO SCH ×2 (09:00→21:14)
[2016-05-04 09:16] LABS: CALCIUM LEVEL 8.4 MG/DL (8.8-10.2); CREATININE FOR GFR 1.54 MG/DL (0.70-1.30); GLOMERULAR FILTRATION RATE 48.2 (>49); POTASSIUM SERUM 3.9 MEQ/L (3.5-5.1)
[2016-05-04] MEDS: ASCORBIC ACID 500 MG TAB PO SCH (09:16)
[2016-05-04] MEDS: PANTOPRAZOLE 40MG INJ (PROTONIX) (C9113) IV SCH ×2 (09:16→21:14)
[2016-05-04] MEDS: D5W 1,000 ML IV SCH ×2 (12:08→23:58)
[2016-05-04 12:25] LABS: INR 1.95
[2016-05-04 12:48] LABS: CALCIUM LEVEL 8.7 MG/DL (8.8-10.2); CREATININE FOR GFR 1.52 MG/DL (0.70-1.30); GLOMERULAR FILTRATION RATE 48.9 (>49); POTASSIUM SERUM 4.1 MEQ/L (3.5-5.1)
--- NOTE | 2016-05-04 13:11 | REP ---
Chest x-ray: Two views. History: Shortness of breath. Comparison study May 02, 2016. Findings: The patient is status post prior median sternotomy. The lungs are mildly hyperinflated. Pleural angles are sharp. No infiltrate is seen. There is mild to moderate cardiomegaly unchanged. Pulmonary vasculature is not increased. EKG monitoring electrodes overlie the chest. Impression: Cardiomegaly. Prior sternotomy. Otherwise no acute disease. Signed by Yannick Harrison MD 05/04/2016 02:59 P
[2016-05-04 18:42] LABS: CALCIUM LEVEL 8.1 MG/DL (8.8-10.2); CREATININE FOR GFR 1.33 MG/DL (0.70-1.30); GLOMERULAR FILTRATION RATE 57.1 (>49); POTASSIUM SERUM 3.8 MEQ/L (3.5-5.1)
--- NOTE | 2016-05-04 20:12 | ECGEPIP ---
Stationary ECG Study [facility] - ED Test Date: 2016-05-02 Pat Name: CLIFFORD COSME Department: Room: [place] [address] Gender: M Perfume Maker: michele : 1950 Requested By: Gilmar Richard Order Number: [id number] Reading MD: Yelitza Caputo Measurements Intervals [place] Rate: 82 P: -3 MT: 205 QRS: 36 QRSD: 110 T: 164 QT: 386 QTc: 453 Interpretive Statements SINUS RHYTHM WITH FREQUENT VENTRICULAR PREMATURE COMPLEXES ST DEVIATION AND MODERATE T-WAVE ABNORMALITY, CONSIDER LATERAL ISCHEMIA ST DEVIATION AND MODERATE T-WAVE ABNORMALITY, CONSIDER INFERIOR ISCHEMIA INCREASED ECTOPY/ST CHANGES COMPARED 09/05/15 Electronically Signed On 05-04-2016 20:12:22 EST by Yelitza Caputo
[2016-05-04] MEDS: ATORVASTATIN 20 MG TAB PO SCH (21:14)
--- NOTE | 2016-05-04 22:02 | IPN ---
DATE OF SERVICE: 05/04/2016 Patient seen and examined at the bedside. Chart has been reviewed. This morning, patient had a reaction to the fresh frozen plasma, developed some hives. No wheezing. No respiratory distress. Fresh frozen plasma was sent to the blood bank for inquiry. He had no complaints of chest pain, pressure or tightness this morning. Temperature 96.5, pulse 82, respiratory 22, blood pressure 106/58, 93% on room air. GENERAL: Patient is awake, alert, oriented to person, place and time. Answering questions appropriately. LUNGS: Very diminished, with fine crackles at the bases. HEART: S1, S2. Sinus rhythm. ABDOMEN: Obese. Soft, nontender, nondistended. Positive bowel sounds. History of age-positive trace edema. LABORATORY DATA: Hemoglobin 10, hematocrit 31. Sodium 153, creatinine 1.5. INR 2.02. ASSESSMENT AND PLAN: This is a 65-year-old male with history of coronary artery disease (CAD), non-ST elevation myocardial infarction (LA) 08/23/2015, coronary artery bypass graft (CABG) 08/24/2015, on Coumadin secondary to small blood clots, diastolic heart failure, hypertension, type 2 diabetes, obesity, presents to the emergency room (ER) complaining of shortness of breath, malaise and fatigue, lightheadedness and dizziness, without fever, chills, cough, chest pain, palpitations, abdominal pain, paroxysmal nocturnal dyspnea (PND), with black tarry stools at home, had been on ferrous sulfate for iron deficiency anemia. The patient has had no prior endoscopies or colonoscopies, was found to have a hemoglobin of 5, INR of 6.72. EKG showed no acute changes. Per patient's coin collector, recommendations are for a complete aversion of Coumadin and no future Coumadin, as the patient does not require this. So far, patient has received 5 units of red blood cells and 3 fresh frozen plasma. Patient developed a rash, treated with Benadryl and racemic epinephrine. Current INR is 2.02. CURRENT ISSUES: 1. Possible transfusion reaction to fresh frozen plasma. No active wheezing at the bedside or respiratory distress. Continue to monitor on telemetry. Await blood bank inquiry regarding patient's reaction. 2. Acute blood loss anemia. Symptomatic anemia requiring 5 units of red blood cells. Transfusion will be withheld for now to reverse the effects of Coumadin. Will provide with vitamin K and defer patient's endoscopy until he is more stabilized. 3. Acute gastrointestinal (GI) bleed with blood loss anemia. Continue with nothing by mouth status. Patient will require bowel prep again on Saturday night for endoscopy on Saturday. Stabilize the patient with reversal of Coumadin over the weekend. Continue with full supportive care. 4. Coumadin coagulopathy. Coumadin has been discontinued. He had been taking the Coumadin for a clot status post coronary artery bypass graft (CABG). Per his coin collector, Dr. Sánchez, may be discontinued altogether after discharge. This patient has received 3 packs of fresh frozen plasma, but with INR still at 2, will repeat INR at noon and try to reverse only with vitamin K for now, as we are unsure of the patient's reaction to the previous fresh frozen plasma. 5. History of coronary artery disease (CAD), non-ST elevation myocardial infarction (LA) with complaints of shortness of breath. Thought to be symptomatic anemia. Continue to monitor. Troponins are unremarkable. Hold off on aspirin for now and Coumadin. 6. Acute on chronic renal disease with hypernatremia and dehydration due to nothing by mouth status. D5W for now. 7. Type 2 diabetes. Insulin sliding scale, hypoglycemic protocol. On D5W for now. 8. Hypertension. On Coreg. 9. Hyperlipidemia. On statin. 10. History of diastolic heart failure. Appears to be compensated. We held the patient's torsemide due to hypernatremia. Patient will be given D5W at 70 an hour. Monitor for respiratory distress. MTDD
[2016-05-05 00:41] LABS: CALCIUM LEVEL 8.2 MG/DL (8.8-10.2); CREATININE FOR GFR 1.42 MG/DL (0.70-1.30); GLOMERULAR FILTRATION RATE 52.9 (>49); POTASSIUM SERUM 3.7 MEQ/L (3.5-5.1)
[2016-05-05] MEDS ORDERED: ALBUTEROL SULFATE 2.5 MG/0.5 ML INH NEB SOLN NEB ONE (00:45)
--- NOTE | 2016-05-05 01:40 | REPUSA ---
Clinical history: Shortness of breath. Comparison: None. Findings: The mediastinum and cardiac silhouette are within normal limits. The lungs are clear. No pl eural effusion or pneumothorax is seen. The osseous structures and soft tissues are unremarkable. Impression: No acute disease.
[2016-05-05 04:00] VITALS: BP 154/65
[2016-05-05] MEDS: SLF 3 ML SYR IV SCH ×3 (05:28→21:05)
[2016-05-05] MEDS: SUCRALFATE SUSP 1GM/10ML UD PO SCH ×4 (05:28→23:51)
[2016-05-05 05:46] LABS: CALCIUM LEVEL 8.2 MG/DL (8.8-10.2); CREATININE FOR GFR 1.38 MG/DL (0.70-1.30); GLOMERULAR FILTRATION RATE 54.7 (>49); POTASSIUM SERUM 3.5 MEQ/L (3.5-5.1)
[2016-05-05 05:48] LABS: MEAN CORPUSCULAR HGB CONC 31.8 g/dl (32.0-36.5); MEAN CORPUSCULAR VOLUME 91.3 fl (80.0-96.0); RED CELL DISTRIBUTION WIDTH 17.3 % (11.5-14.5); WHITE BLOOD COUNT 12.5 K/mm3 (4.0-10.0)
[2016-05-05 07:21] LABS: INR 1.66
[2016-05-05 07:30] VITALS: BP 120/69
--- NOTE | 2016-05-05 08:55 | REP ---
AP PORTABLE CHEST: 05/05/2016 at 07:18 AM. Comparison: 05/05/2016 at 01:06 a.m., 05/04/2016, 05/02/2016. Clinical history: Dyspnea. Sternotomy wires are again seen. There is no gross cardiomegaly. Some underlying interstitial fibrotic changes are seen without superimposed acute infiltrate or edema. CP angles excluded on both sides. Lordotic projection exaggerates heart size which is normal. The aorta is normal for age. Airway intact. Impression: 1. Sternotomy wires from prior CABG with some underlying fibrosis but no gross cardiomegaly, dary edema, dense consolidation, or visible effusion. Signed by Vignesh Cohen MD 05/05/2016 07:25 P
--- NOTE | 2016-05-05 08:57 | ECGEPIP ---
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
[2016-05-05] MEDS: HumaLOG INSULIN (NovoLOG) PER UNIT SC SCH ×4 (09:14→21:00)
[2016-05-05] MEDS: **hydrALAZINE HCL** 25 MG TAB PO SCH ×3 (09:14→21:04)
[2016-05-05] MEDS: ASCORBIC ACID 500 MG TAB PO SCH (09:14)
[2016-05-05] MEDS: CARVedilol 6.25 MG TAB PO SCH ×2 (09:14→21:04)
[2016-05-05] MEDS ORDERED: IPRATROPIUM 0.02% SOLN 0.5MG/2.5 ML NEB INH PRN (09:45)
[2016-05-05] MEDS ORDERED: LEVALBUTEROL 1.25 MG/0.5 ML CONCENTRATE NEB INH PRN (09:45)
[2016-05-05] MEDS: D5W 1,000 ML IV SCH (09:52)
[2016-05-05] MEDS ORDERED: PHYTONADIONE 10MG/ML INJECTION (J3430) SC ONE (10:00)
[2016-05-05] MEDS: IPRATROPIUM 0.02% SOLN 0.5MG/2.5 ML NEB INH SCH ×3 (10:04→19:25)
[2016-05-05] MEDS: LEVALBUTEROL 1.25 MG/0.5 ML CONCENTRATE NEB INH SCH ×3 (10:05→19:25)
[2016-05-05] MEDS: PANTOPRAZOLE 40MG INJ (PROTONIX) (C9113) IV SCH ×2 (10:18→21:03)
[2016-05-05 12:05] VITALS: BP 130/65
[2016-05-05 12:47] LABS: CALCIUM LEVEL 8.2 MG/DL (8.8-10.2); CREATININE FOR GFR 1.58 MG/DL (0.70-1.30); GLOMERULAR FILTRATION RATE 46.8 (>49); POTASSIUM SERUM 4.4 MEQ/L (3.5-5.1)
[2016-05-05 16:15] VITALS: BP 157/63
--- NOTE | 2016-05-05 17:31 | EDDOCDS ---
Physician Documentation [facility] Name: Stephen Bass Age: 65 yrs Sex: Male : 1950 Arrival Date: 05/02/2016 Time: 22:07 Bed 20 Private MD: Briana Jara PA-C Disposition: 05/02 23:28 Critical Care:. pc Disposition: 05/02/16 23:30 Hospitalization ordered by José Miguel Méndez for Inpatient Admission. Preliminary diagnosis are Gastrointestinal hemorrhage, unspecified - upper, Adverse effect of anticoagulant antagonists, vitamin K and other coagulants, Anemia, unspecified - acute blood loss, Acute kidney failure. - Bed requested for M PCU. - Status is Inpatient Admission. ld5 - Condition is Stable. - Problem is new. - Symptoms have improved. HPI: 22:48 This 65 yrs old Male presents to ER via Ambulance with complaints of Weakness.pc 22:48 The history is obtained from the patient, the patient's family/friend. He has been pc feeling progressively weaker for the past 3 weeks. He denies any infectious symptoms, fevers or chills, cough, chest pain, abdominal pain. He has black stools due to iron supplementation. He was seen by his PCP in mid-February and Mid-March, and per her records and the patient's own account of the visits, he was advised that his labs were good and that he did not need follow up until June. However, his H+H dropped from 10.7/33.21 to 7.4/24.2 and was not addressed. 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 His BUN has increased from 64 to 80 to 105 from December to March, his Cr increased from 1.49 to 1.78 to 2.14 in the same time period. Historical: - Allergies: No known drug Allergies; - Home Meds: 1. Coumadin MWF 4mg, Tue Thur Sat Sun 2mg Oral tab 1 tab once daily (Last dose: 05/02/2016 16:00) 2. metformin 1,000 mg Oral tab 1 tab 2 times per day (Last dose: 05/02/2016 16:00) 3. furosemide 40 mg Oral tab 1 tab 2 times per day (Last dose: 05/02/2016 16:00) 4. aspirin 81 mg Oral chew 1 tab once daily (Last dose: 05/02/2016 04:00) 5. atorvastatin 40 mg oral tab 1 tab once daily (Last dose: 05/02/2016 16:00) 6. carvedilol 6.25 mg oral tab 1 tab daily 7. ascorbic acid 500 mg oral TbER daily ran out 8. multivitamin Oral cap daily 9. unknown diabetic med 10. hydralazine 25 mg Oral tab three times a day 11. torsemide 20 mg oral tab Unknown - PMHx: Diabetes - NIDDM: controlled; Hypertension; NC; - PSHx: Cataract Surgery- Bilateral; cabag x 4; - The history from nurses notes was reviewed: and I agree with what is documented. - Social history: Smoking status: Patient states former smoker of tobacco. No barriers to communication noted, The patient speaks fluent [place]. - Family history: Not pertinent. - : The pt / caregiver states he / she is on anticoagulants: coumadin. Home medication list is obtained from the patient, [employer] import data. - Hospitalizations: : No recent hospitalization is reported. - Exposure Risk Screening:: None identified. - Immunization history:: All immunizations up-to-date. - Social history:: the patient is a non-smoker, the patient does not drink alcohol. ROS: 22:48 All systems are negative except as listed. pc Exam: 22:48 General Appearance: no acute distress, alert. pc 22:48 EENT: ears, nose and throat normal, pharynx normal, mucous membranes moist pale conjunctiva. 22:48 Neck: The exam reveals no acute abnormalities. ROM is normal and painless. No nuchal rigidity is noted.. 22:48 Respiratory: no respiratory distress, normal breath sounds, PO 92% on RA. 22:48 CVS: regular pulse rate, regular rhythm, normal S1 and S2, no murmurs, strong peripheral pulses, normal capillary refill. 22:48 Abdomen: soft, non-tender, no organomegaly, normal bowel sounds, Rectal exam: stool is guaiac positive, black. 22:48 Back: normal inspection. 22:48 Skin: warm, dry, the skin appears pale, diffusely. 22:48 Extremities: The extremities have a grossly normal appearance. 22:48 Neuro: oriented x 3, cranial nerves normal as tested, no motor deficits, no sensory deficits. 22:48 Psych: normal mood. Vital Signs: 22:14 BP 147 / 82 LA Sitting (auto/reg); Pulse 87 MON; Resp 22 S; Temp 98.7(O); Pulse Ox 100% cln on R/A; Weight 105.69 kg / 233.01 lbs (R); Height 5 ft. 6 in. (167.64 cm) (R); Pain 0/10; 22:26 BP 120 / 55 (auto/); mlc 22:27 Pulse 90 MON; Pulse Ox 90% ; mlc 22:56 Pulse 82 MON; Pulse Ox 100% ; mlc 22:56 BP 125 / 51 (auto/); mlc 23:26 BP 145 / 90 (auto/); mlc 23:26 Pulse 82 MON; Pulse Ox 100% ; mlc 23:57 Pulse 84 MON; Pulse Ox 100% ; mlc 05/03 00:05 BP 113 / 62 (auto/); mlc 00:07 Pulse 84 MON; Pulse Ox 100% ; mlc 00:26 BP 115 / 56 (auto/); mlc 00:27 Pulse 80 MON; Pulse Ox 99% ; mlc 00:34 BP 118 / 56 (auto/); mlc 00:35 Pulse 80 MON; Pulse Ox 98% ; mlc 00:56 BP 123 / 60 (auto/); mlc 00:57 Pulse 80 MON; Pulse Ox 99% ; mlc 01:20 Pulse 82 MON; Pulse Ox 98% ; mlc 01:20 BP 134 / 55 (auto/); mlc 01:26 BP 116 / 54 (auto/); mlc 01:26 Pulse 80 MON; Pulse Ox 98% ; mlc 01:50 Pulse 80 MON; Resp 20; Pulse Ox 99% ; mlc 01:56 BP 119 / 59 (auto/); mlc 01:57 Pulse 82 MON; Pulse Ox 99% ; mlc 02:00 BP 123 / 67 (auto/); mlc 02:00 Pulse 80 MON; Pulse Ox 98% ; mlc 02:22 BP 136 / 62 (auto/); mlc 02:23 Pulse 80 MON; Pulse Ox 99% ; mlc 02:26 BP 139 / 53 (auto/); mlc 02:33 Pulse 80 MON; Pulse Ox 99% ; mlc 02:35 Temp 98.1(TE); mlc 02:40 BP 132 / 58 (auto/); mlc 02:41 Pulse 80 MON; Pulse Ox 99% ; mlc 02:56 BP 127 / 68 (auto/); mlc 02:57 Pulse 82 MON; Pulse Ox 98% ; mlc 03:17 Pulse 82 MON; Pulse Ox 99% ; mlc 03:23 Pulse 84 MON; Pulse Ox 99% ; mlc 03:23 BP 126 / 63 (auto/); mlc 03:26 BP 147 / 65 (auto/); mlc 03:27 Pulse 82 MON; Pulse Ox 98% ; mlc 03:56 Pulse 88 MON; Pulse Ox 96% ; mlc 03:56 BP 147 / 66 (auto/); mlc 04:20 Pulse 78 MON; Pulse Ox 98% ; mlc 04:20 BP 171 / 72 (auto/); mlc 04:26 BP 134 / 58 (auto/); mlc 04:26 Pulse 78 MON; Pulse Ox 98% ; mlc 04:47 Pulse 78 MON; Pulse Ox 96% ; mlc 04:56 BP 137 / 68 (auto/); mlc 05:09 Pulse 78 MON; Pulse Ox 97% ; mlc 05:26 BP 147 / 63 (auto/); mlc 05:27 Pulse Ox 98% ; mlc 05:44 BP 155 / 89 (auto/); mlc 05:45 Pulse 78 MON; Pulse Ox 97% ; mlc 05:56 Pulse 86 MON; Pulse Ox 94% ; mlc 05:56 BP 100 / 41 (auto/); mlc 06:17 BP 113 / 65; Pulse 83; Resp 20; Temp 98.6(TE); Pulse Ox 98% on 3 lpm NC; Pain 0/10; mlc 05/02 22:14 Body Mass Index 37.61 (105.69 kg, 167.64 cm) cln MDM: 05/02 22:37 IV Saline Lock ordered. pc 22:37 Drag Seiner/Pulse Ox/q 30 min VS ordered. pc 22:37 Oxygen at 2L/min via NC ordered. pc 22:37 Transfuse PRBC's 2 units, ensure PRBCs ordered in lab ordered. pc 22:38 CBC with Diff Ordered. EDMS 22:38 MED Profile Ordered. EDMS 22:38 INR Ordered. EDMS 22:38 pantoprazole 80 mg IV at bolus once ordered. pc 22:38 pantoprazole 8 mg/hr IV at 10 mL/hr continuous over 72 hrs; 40mg (10mL): withdraw 10mL pc from 50mL bag of NS then add protonix ordered. 22:38 IV Saline Lock ordered. pc 22:38 Chest, 1 View Ordered. EDMS 22:38 Type and Cross, Packed Cells Ordered. EDMS 22:38 ECG WITH READING ER PHYS+CARDIAG ordered. EDMS 22:39 TYPE & SCREEN Ordered. EDMS 22:48 Differential Diagnosis: UGI bleed with severe anemia on warfarin. Plan: labs, EKG, pc imaging, transfuse, admit. Test interpretation: EKG. 23:04 CBC with Diff Reviewed. pc 23:04 MED Profile Reviewed. pc 23:08 NS 0.9% 500 ml IV at bolus once ordered. pc 23:08 Financial registration complete. pm4 23:14 Physician consultation: Dr. Sathish Chandler regarding patient's condition, and will pc see patient in inpatient room. 23:16 Physician consultation: Dr. Tripp Sánchez MD was contacted at 23:16, regarding pc patient's condition, and he advises that the Coumadin can be completely reversed as he feels confident that the small left atrial clot is now resolved after 7 months of Coumadin therapy. 23:17 Phytonadione 5 mg Sub-Q once ordered. pc 23:18 FFP Ordered. EDMS 23:19 BED REQUEST+ADM ordered. EDMS 23:21 [facility] Payment Agreement was scanned into [employer] and attached to record. pm4 23:28 Data reviewed: old medical records, vital signs, nurses notes, EKG(s), lab test pc results, all radiology studies and available results. Test interpretation: LAB - all labs as ordered have been reviewed, interpreted and considered in the overall management of the clinical presentation; X-RAY - interpreted by me, 1 view chest no acute disease. The patient has been re-examined and re-evaluated. The patient's symptoms have mildly improved after treatment. Physician consultation: Dr. José Miguel Méndez was contacted at 23:29, regarding admission, and will see patient in ED, shortly. Disposition: The historical points, examination findings, and any diagnostic results supporting the provided diagnosis, were discussed with the patient or legal guardian. The need for further work-up and/or treatment in the hospital was explained. 23:54 Transfuse FFP 1 unit, ensure FFP ordered in lab ordered. pc 05/03 00:39 Admission / Observation Status ordered. EDMS 00:39 BASIC METABOLIC PROFILE Ordered. EDMS 00:39 COMPLETE BLOOD COUNT Ordered. EDMS 00:40 PROTHROMBIN TIME PROFILE\E\INR Ordered. EDMS 00:43 NPO DIET ordered. EDMS 00:45 PACKED CELLS Ordered. EDMS 06:48 PATHOLOGIST REVIEW COMPREHENSI Ordered. EDMS 06:49 RETICULOCYTE COUNT Ordered. EDMS 06:49 TOTAL IRON BINDING CAPACIT Ordered. EDMS 08:40 Fingerstick Blood Sugar Ordered. EDMS 12:48 Fingerstick Blood Sugar Ordered. EDMS 12:59 FROZEN PLASMA 24 Ordered. EDMS 12:59 CLEAR LIQUIDS DIET ordered. EDMS 12:59 NPO FOR TEST/PROCEDURE ordered. EDMS 13:04 HEMOGLOBIN & HEMATOCRIT Ordered. EDMS 13:09 BASIC METABOLIC PROFILE Ordered. EDMS 13:19 PACKED CELLS Ordered. EDMS 02 09:38 ECG/EKG was scanned into [employer] and attached to record. gb EC/08 22:48 Rate is 82 beats/min. Rhythm is regular, Normal Sinus Rhythm with Unifocal PVCs, 1st pc degree heart block, in trigeminy. QRS Pelsor is Normal. MD interval is prolonged at 282 msec. QRS interval is normal. QT interval is normal. No Q waves. T waves are Normal. ST Segment is depressed in leads I, II, III, aVL, aVF, V4, V5, V6, <1mm. Clinical impression: Normal Sinus Rhythm, Nonspecific ST-T changes, 1st degree heart block, and frequent PVCs in trigeminy. No change from previous ECG in August,. Administered Medications: 23:05 Drug: pantoprazole 80 mg [pantoprazole 40 mg intravenous solution] Route: IV; Rate: mlc bolus; Site: right antecubital; 23:05 Drug: pantoprazole 8 mg/hr [pantoprazole 40 mg intravenous solution] Route: IV; Rate: mlc 10 mL/hr; Infused Over: 72 hrs; Site: right antecubital; 05/03 03:18 Follow up: IV Status: Infusion discontinued mlc 05/02 23:13 Drug: NS 0.9% 500 ml [sodium chloride 0.9 % intravenous solution] Route: IV; Rate: mlc bolus; Site: left antecubital; 23:28 Drug: Phytonadione 5 mg [phytonadione (vitamin K1) 10 mg/mL injection solution (0.5 mlc mL)] Route: Sub-Q; Site: abdomen; Critical Care Time: 23:28 Critical care time: Bedside Care: 25 minutes, Consultation: 25 minutes, Family pc Intervention: 15 minutes. Total time: 65 minutes Signatures: Dispatcher [employer] Gilmar Fletcher MD MD Kary Naqvi, Reg Reg gb Mikala Perkins RN RN ld5 Martha Leone RN RN mlc Sourwine, Sharon, RN RN sls2 Mirza Lira, Reg Reg pm4 The chart was reviewed and I authenticate all verbal orders and agree with the evaluation and treatment provided.Corrections: (The following items were deleted from the chart) 22:26 22:22 Home Meds: unknown BP med three times a day; [facility] 23:10 22:48 He has been feeling progressively weaker for the past 3 weeks. He denies any pc infectious symptoms, fevers or chills, cough, chest pain, abdominal pain. He has black stools due to iron supplementation. He was seen by his PCP in mid-February and Mid-March, and per her records and the patient's own account of the visits, he was advised that his labs were good and that he did not need follow up until June. However, his H+H dropped from 10.7/33.21 to 7.4/24.2 and was not addressed. 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 pc 05/03 00:43 00:39 2 GRAM SODIUM DIET ordered. EDMS EDMS 00:47 00:39 PACKED CELLS ordered. EDMS EDMS 00:47 00:42 TYPE & SCREEN ordered. EDMS EDMS 06:46 06:22 TOTAL IRON BINDING CAPACIT ordered. EDMS EDMS 06:46 06:22 IRON (FE) ordered. EDMS EDMS 06:50 06:22 RETICULOCYTE COUNT ordered. EDMS EDMS 06:51 06:22 PATHOLOGIST REVIEW COMPREHENSI ordered. EDMS EDMS 06:51 06:46 TOTAL IRON BINDING CAPACIT ordered. EDMS EDMS 13:17 13:08 PACKED CELLS ordered. EDMS EDMS 13:18 13:10 TYPE & SCREEN ordered. EDMS EDMS Attachments: 05/02 23:21 [facility] Payment Agreement pm4 05/04 09:38 ECG/EKG gb Chart Complete MTDD
--- NOTE | 2016-05-05 17:31 | EDDOCDS ---
Nurse's Notes [facility] Name: Stephen Bass Age: 65 yrs Sex: Male : 1950 Arrival Date: 05/02/2016 Time: 22:07 Bed 20 Private MD: Briana Jara PA-C Diagnosis: Gastrointestinal hemorrhage, unspecified-upper;Adverse effect of anticoagulant antagonists, vitamin K and other coagulants;Anemia, unspecified-acute blood loss;Acute kidney failure Presentation: 05/02 22:11 Presenting complaint: EMS states: pt started feeling weak for the past few days, pt c/o mlc arms and legs feeling weak. pt states he didn't eat yesterday and ate a half of a sandwich this AM at approx 10:30 AM. pt c/o feeling SOB. The last date and time the patient was known to be well was was at an unknown time on an unknown date. No acute neurological deficit is noted. Pre-hospital glucose is not applicable to this patient. Adult Sepsis Screening: The patient does not have new or worsening altered mentation. Patient has a respiratory rate of greater than or equal to 22 (1 point). Systolic blood pressure is greater than 100. Patient has a qSOFA score of 0- Negative Sepsis Screen. Suicide/Homicide risk assessment- the patient denies having any suicidal and/or homicidal ideations and does not present with any other emotional, behavioral or mental health complaints. Status: Patient is not a security services manager or dependent. Transition of care: patient was not received from another setting of care. 22:11 Acuity: [facility] Level 3 [facility] [place]:11 Method Of Arrival: [place] [facility] T[place] Assessment: 22:22 The onset of the patients symptoms was more than three hours ago. General: Appears ill, mlc Behavior is cooperative. Pain: Denies pain. The patient is triaged at the bedside. See Assessment in Nurses Notes section of ED record. Neurological: Level of Consciousness is awake, alert, obeys commands, Oriented to person, place, time, Reports weakness. Respiratory: Airway is patent Respiratory effort is even, labored, Respiratory pattern is regular. Derm: Skin is pale. Historical: - Allergies: No known drug Allergies; - Home Meds: 1. Coumadin MWF 4mg, Tue Thur Sat Sun 2mg Oral tab 1 tab once daily (Last dose: 05/02/2016 16:00) 2. metformin 1,000 mg Oral tab 1 tab 2 times per day (Last dose: 05/02/2016 16:00) 3. furosemide 40 mg Oral tab 1 tab 2 times per day (Last dose: 05/02/2016 16:00) 4. aspirin 81 mg Oral chew 1 tab once daily (Last dose: 05/02/2016 04:00) 5. atorvastatin 40 mg oral tab 1 tab once daily (Last dose: 05/02/2016 16:00) 6. carvedilol 6.25 mg oral tab 1 tab daily 7. ascorbic acid 500 mg oral TbER daily ran out 8. multivitamin Oral cap daily 9. unknown diabetic med 10. hydralazine 25 mg Oral tab three times a day 11. torsemide 20 mg oral tab Unknown - PMHx: Diabetes - NIDDM: controlled; Hypertension; MA; - PSHx: Cataract Surgery- Bilateral; cabag x 4; - The history from nurses notes was reviewed: and I agree with what is documented. - Social history: Smoking status: Patient states former smoker of tobacco. No barriers to communication noted, The patient speaks fluent French. - Family history: Not pertinent. - : The pt / caregiver states he / she is on anticoagulants: coumadin. Home medication list is obtained from the patient, [employer] import data. - Hospitalizations: : No recent hospitalization is reported. - Exposure Risk Screening:: None identified. - Immunization history:: All immunizations up-to-date. - Social history:: the patient is a non-smoker, the patient does not drink alcohol. Screenin:26 Screening information is obtained from the patient. Fall risk: At risk due to age. mlc Assistance ADL's: requires no assistance with activities of daily living. Abuse/DV Screen: The patient / caregiver reports he/she is: not in a situation that causes fear, pain or injury. Nutritional screening: No deficits noted. home support is adequate. 05/03 02:35 Advance Directives: Currently, there is a health care proxy, Yoandy Bass, son. There is mlc no active DNR order. There is an active Power of Maintenance Clerk, Yoandy Bass, son. Assessment: 05/02 22:38 General: Appears ill, Behavior is cooperative. Pain: Denies pain. Neurological: Level mlc of Consciousness is awake, alert, obeys commands, Oriented to person, place, time. Cardiovascular: Heart tones S1 S2 present Rhythm is irregular. Respiratory: Airway is patent Respiratory effort is labored, Respiratory pattern is regular, Breath sounds are diminished Breath sounds with wheezes expiratory. GI: Abdomen is obese, Bowel sounds present X 4 quads. Abd is soft X 4 quads. Derm: Skin is pale. 23:28 Reassessment: Patient appears in no apparent distress at this time. Patient states mlc symptoms have not improved. pt resting comfortably in bed, pt medicated per order. IV fluids infusing per order. 05/03 00:39 General: blood infusing per order. pt resting comfortably in bed. resp easy/unlabored. mlc lung sounds diminished. pt offers no complaints. . 01:30 General: Appears in no apparent distress, comfortable, to be sleeping. General: blood mlc transfusing per order. Respiratory: Airway is patent Respiratory effort is even, unlabored, Respiratory pattern is regular. 02:33 General: Appears in no apparent distress, comfortable, Behavior is cooperative. mlc General: blood transfusing per order. . Pain: Denies pain. Neurological: Level of Consciousness is awake, alert, Oriented to person, place, time. Respiratory: Airway is patent Respiratory effort is even, unlabored, Respiratory pattern is regular. Derm: Skin is pale. 03:30 Reassessment: Patient appears in no apparent distress at this time. Respiratory: Breath mlc sounds are diminished bilaterally. Breath sounds with wheezes expiratory. 03:30 General: blood transfusing per order. mlc 04:28 General: 2nd unit of blood complete. resp easy/unlabored. pt offers no complaints, pt mlc watching tv. . 05:10 Reassessment: Patient appears in no apparent distress at this time. pt offers no mlc complaints. resp easy/unlabored. . 06:16 General: Appears in no apparent distress, comfortable, Behavior is cooperative. mlc Neurological: Level of Consciousness is awake, alert, Oriented to person, place, time. Cardiovascular: Rhythm is irregular. Respiratory: Breath sounds are diminished bilaterally. Breath sounds with wheezes expiratory. 06:18 General: report given to SANDRA Lee. [facility] Vital Signs: 05/02 22:14 BP 147 / 82 LA Sitting (auto/reg); Pulse 87 MON; Resp 22 S; Temp 98.7(O); Pulse Ox 100% cln on R/A; Weight 105.69 kg (R); Height 5 ft. 6 in. (167.64 cm) (R); Pain 0/10; 22:26 BP 120 / 55 (auto/); mlc 22:27 Pulse 90 MON; Pulse Ox 90% ; mlc 22:56 Pulse 82 MON; Pulse Ox 100% ; mlc 22:56 BP 125 / 51 (auto/); mlc 23:26 BP 145 / 90 (auto/); mlc 23:26 Pulse 82 MON; Pulse Ox 100% ; mlc 23:57 Pulse 84 MON; Pulse Ox 100% ; mlc 05/03 00:05 BP 113 / 62 (auto/); mlc 00:07 Pulse 84 MON; Pulse Ox 100% ; mlc 00:26 BP 115 / 56 (auto/); mlc 00:27 Pulse 80 MON; Pulse Ox 99% ; mlc 00:34 BP 118 / 56 (auto/); mlc 00:35 Pulse 80 MON; Pulse Ox 98% ; mlc 00:56 BP 123 / 60 (auto/); mlc 00:57 Pulse 80 MON; Pulse Ox 99% ; mlc 01:20 Pulse 82 MON; Pulse Ox 98% ; mlc 01:20 BP 134 / 55 (auto/); mlc 01:26 BP 116 / 54 (auto/); mlc 01:26 Pulse 80 MON; Pulse Ox 98% ; mlc 01:50 Pulse 80 MON; Resp 20; Pulse Ox 99% ; mlc 01:56 BP 119 / 59 (auto/); mlc 01:57 Pulse 82 MON; Pulse Ox 99% ; mlc 02:00 BP 123 / 67 (auto/); mlc 02:00 Pulse 80 MON; Pulse Ox 98% ; mlc 02:22 BP 136 / 62 (auto/); mlc 02:23 Pulse 80 MON; Pulse Ox 99% ; mlc 02:26 BP 139 / 53 (auto/); mlc 02:33 Pulse 80 MON; Pulse Ox 99% ; mlc 02:35 Temp 98.1(TE); mlc 02:40 BP 132 / 58 (auto/); mlc 02:41 Pulse 80 MON; Pulse Ox 99% ; mlc 02:56 BP 127 / 68 (auto/); mlc 02:57 Pulse 82 MON; Pulse Ox 98% ; mlc 03:17 Pulse 82 MON; Pulse Ox 99% ; mlc 03:23 Pulse 84 MON; Pulse Ox 99% ; mlc 03:23 BP 126 / 63 (auto/); mlc 03:26 BP 147 / 65 (auto/); mlc 03:27 Pulse 82 MON; Pulse Ox 98% ; mlc 03:56 Pulse 88 MON; Pulse Ox 96% ; mlc 03:56 BP 147 / 66 (auto/); mlc 04:20 Pulse 78 MON; Pulse Ox 98% ; mlc 04:20 BP 171 / 72 (auto/); mlc 04:26 BP 134 / 58 (auto/); mlc 04:26 Pulse 78 MON; Pulse Ox 98% ; mlc 04:47 Pulse 78 MON; Pulse Ox 96% ; mlc 04:56 BP 137 / 68 (auto/); mlc 05:09 Pulse 78 MON; Pulse Ox 97% ; mlc 05:26 BP 147 / 63 (auto/); mlc 05:27 Pulse Ox 98% ; mlc 05:44 BP 155 / 89 (auto/); mlc 05:45 Pulse 78 MON; Pulse Ox 97% ; mlc 05:56 Pulse 86 MON; Pulse Ox 94% ; mlc 05:56 BP 100 / 41 (auto/); mlc 06:17 BP 113 / 65; Pulse 83; Resp 20; Temp 98.6(TE); Pulse Ox 98% on 3 lpm NC; Pain 0/10; mlc 02 22:14 Body Mass Index 37.61 (105.69 kg, 167.64 cm) cln Vitals: 02 22:26 Glucose Measurement D-stick done by EMS 242. Log In Time N/A - ambulance arrival. mlc ED Course: 22:08 Patient visited by Donte Estrada PCA. kb5 22:08 Martha Leone RN is Primary Nurse. kb5 22:08 Briana Jara is Private Physician. kb5 22:08 Patient moved to Waiting kb5 22:08 Patient moved to 17 kb5 22:12 Gilmar Vega MD is Attending Physician. pc 22:14 Triage Initiated mlc 22:15 Patient visited by Joan Lopez PCA. cln 22:35 Patient visited by Gilmar Vega MD. pc 22:38 The patient / caregiver is instructed regarding the plan of care and ED course. Cardiac mlc monitor on. Pulse ox on. NIBP on. 22:38 Inserted saline lock: 20 gauge in right antecubital area and blood collected. The mlc patient tolerated the procedure well. by Moreno Blum RN. O2 via nasal cannula \T\ 2L/min. 22:39 Patient visited by Martha Leone RN. mlc 22:40 TYPE & SCREEN Sent. mlc 22:40 INR Sent. mlc 22:40 Type and Cross, Packed Cells Sent. mlc 22:40 MED Profile Sent. mlc 22:40 CBC with Diff Sent. mlc 22:56 Notified attending ED physician of Critical lab value. H/H 5.1 &17.0. cz 23:04 EKG done. (by ED staff). Reviewed by Gilmar Vega MD. jlm 23:05 Patient visited by Brook Leigh, Blender Conveyor Operator. jlm 23:06 Patient visited by Martha Leone RN. mlc 23:06 Inserted saline lock: 20 gauge in left antecubital area The patient tolerated the mlc procedure well. 23:18 Notified attending ED physician of Critical lab value. pro time 58.2 and INR 6.72. cz 23:20 FFP Sent. mlc 23:21 [facility] Payment Agreement was scanned into [facility] and attached to record. pm4 23:28 Patient visited by Martha Leone RN. mlc 23:30 José Miguel Méndez is Hospitalizing Provider. pc 0209 00:20 Blood products: PRBCs X 1 unit given. See transfusion record. mlc 00:41 Patient visited by Martha Leone RN. mlc 02:23 Blood products: PRBCs X 1 unit given. See transfusion record. mlc 02:31 Chest, 1 View Returned. EDMS 02:37 Patient visited by Martha Leone RN. mlc 03:19 Patient visited by Martha Leone RN. mlc 04:31 Patient visited by Martha Leone RN. mlc 05:11 Patient visited by Martha Leone RN. mlc 05:30 Blood products: FFP X 1 unit given. mlc 05:48 Patient visited by Martha Leone RN. mlc 06:17 No procedures done that require assistance. mlc 06:18 Patient visited by Martha Leone RN. mlc 06:18 Patient moved to 20 [facility] 09:38 Primary Nurse role handed off by Martha Leone RN [facility] 05/04 09:38 ECG/EKG was scanned into [facility] and attached to record. gb Administered Medications: 05/02 23:05 Drug: pantoprazole 80 mg [pantoprazole 40 mg intravenous solution] Route: IV; Rate: mlc bolus; Site: right antecubital; 23:05 Drug: pantoprazole 8 mg/hr [pantoprazole 40 mg intravenous solution] Route: IV; Rate: mlc 10 mL/hr; Infused Over: 72 hrs; Site: right antecubital; 05/03 03:18 Follow up: IV Status: Infusion discontinued mlc 05/02 23:13 Drug: NS 0.9% 500 ml [sodium chloride 0.9 % intravenous solution] Route: IV; Rate: mlc bolus; Site: left antecubital; 23:28 Drug: Phytonadione 5 mg [phytonadione (vitamin K1) 10 mg/mL injection solution (0.5 mlc mL)] Route: Sub-Q; Site: abdomen; Intake: 05/03 03:18 IV: 50.00ml; Total: 50.00ml. mlc 03:18 IV: 380.00ml (PRBC); Total: 430.00ml. mlc 04:30 IV: 426.00ml (PRBC); Total: 856.00ml. mlc Output: 05:10 Urine: 375.00ml (Voided); Total: 375.00ml. mlc Order Results: Lab Order: CBC with Diff; SPEC'M 05/02/16 22:14 Test: WHITE BLOOD COUNT; Value: 13.6; Range: 4.0-10.0; Abnormal: Above high normal; Units: K/mm3; Status: F Test: RED BLOOD COUNT; Value: 1.86; Range: 4.30-6.10; Abnormal: Below low normal; Units: M/mm3; Status: F Test: HEMOGLOBIN; Value: 5.1; Range: 14.0-18.0; Abnormal: Critical Low; Units: g/dl; Status: F Test: HEMATOCRIT; Value: 17.0; Range: 42.0-52.0; Abnormal: Below low normal; Units: %; Status: F Test: MEAN CORPUSCULAR VOLUME; Value: 91.5; Range: 80.0-96.0; Units: fl; Status: F Test: MEAN CORPUSCULAR HEMOGLOBIN; Value: 27.4; Range: 27.0-33.0; Units: pg; Status: F Test: MEAN CORPUSCULAR HGB CONC; Value: 29.9; Range: 32.0-36.5; Abnormal: Below low normal; Units: g/dl; Status: F Test: RED CELL DISTRIBUTION WIDTH; Value: 17.4; Range: 11.5-14.5; Abnormal: Above high normal; Units: %; Status: F Test: PLATELET COUNT, AUTOMATED; Value: 394; Range: 150-450; Units: k/mm3; Status: F Test: NEUTROPHILS %; Value: 68.0; Range: 36.0-66.0; Abnormal: Above high normal; Units: %; Status: F Test: LYMPH %; Value: 18.1; Range: 24.0-44.0; Abnormal: Below low normal; Units: %; Status: F Test: MONO %; Value: 6.2; Range: 0.0-5.0; Abnormal: Above high normal; Units: %; Status: F Test: EOS %; Value: 4.7; Range: 0.0-3.0; Abnormal: Above high normal; Units: %; Status: F Test: BASO %; Value: 0.6; Range: 0.0-1.0; Units: %; Status: F Test: LARGE UNSTAINED CELL %; Value: 2.4; Range: 0.0-4.0; Units: %; Status: F Test: NEUTROPHILS #; Value: 9.3; Range: 1.8-7.7; Abnormal: Above high normal; Units: K/mm3; Status: F Test: LYMPH #; Value: 2.8; Range: 1.5-4.5; Units: K/mm3; Status: F Test: MONO #; Value: 0.8; Range: 0.0-0.8; Units: K/mm3; Status: F Test: EOS #; Value: 0.6; Range: 0.0-0.50; Abnormal: Above high normal; Units: K/mm3; Status: F Test: BASO #; Value: 0.1; Range: 0.0-0.2; Units: K/mm3; Status: F Test: LARGE UNSTAINED CELL #; Value: 0.3; Range: 0.0-0.4; Units: K/mm3; Status: F Lab Order: MED Profile; SPEC'M 17 22:14 Test: GLUCOSE, FASTING; Value: 166; Range: 80-110; Abnormal: Above high normal; Units: MG/DL; Status: F Test: BLOOD UREA NITROGEN; Value: 131; Range: 7-18; Abnormal: Above high normal; Units: MG/DL; Status: F Test: CREATININE FOR GFR; Value: 2.26; Range: 0.70-1.30; Abnormal: Above high normal; Units: MG/DL; Status: F Test: GLOMERULAR FILTRATION RATE; Value: 31.0; Range: >49; Abnormal: Below low normal; Status: F Test: SODIUM LEVEL; Value: 146; Range: 136-145; Abnormal: Above high normal; Units: MEQ/L; Status: F Test: POTASSIUM SERUM; Value: 4.9; Range: 3.5-5.1; Units: MEQ/L; Status: F Test: CHLORIDE LEVEL; Value: 109; Range: 98-107; Abnormal: Above high normal; Units: MEQ/L; Status: F Test: CARBON DIOXIDE LEVEL; Value: 27; Range: 21-32; Units: MEQ/L; Status: F Test: ANION GAP; Value: 10; Range: 8-16; Units: MEQ/L; Status: F Test: CALCIUM LEVEL; Value: 8.8; Range: 8.8-10.2; Units: MG/DL; Status: F Test Note: ; Units are mL/min/1.73 m2 Chronic Kidney Disease Staging per NKF: Stage I & II GFR >=60 Normal to Mildly Decreased Stage III GFR 30-59 Moderately Decreased Stage IV GFR 15-29 Severely Decreased Stage V GFR <15 Very Little GFR Left ESRD GFR <15 on MACHINE PRINTER Lab Order: INR; [facility]'05/02/16 22:14 Test: PROTHROMBIN TIME; Value: 58.2; Range: 12.3-14.5; Abnormal: Above high normal; Units: SECONDS; Status: F Test: INR; Value: 6.72; Abnormal: Above upper panic limits; Status: F Test Note: ; THERAPUTIC HUMAN INR VALUES INDICATIONS NORMAL RANGES PROPHYLAXIS/TREATMENT OF: VENOUS THROMBOSIS 2.0-3.0 PULMONARY EMBOLISM 2.0-3.0 PREVENTION OF SYSTEMIC EMBOLISM FROM: TISSUE HEART VALVES 2.0-3.0 ACUTE MYOCARDIAL INFARCTION 2.0-3.0 VALVULAR HEART DISEASE 2.0-3.0 ATRIAL FIBRILLATION 2.0-3.0 MECHANICAL VALVES(HIGH RISK) 2.5-3.5 RECURRENT MYOCARDIAL INFARCTION 2.5-3.5 Lab Order: TYPE & SCREEN; [facility] 05/02/16 22:14 Test: BLOOD TYPE; Value: A POS; Status: F Test: AB SCREEN (INDIRECT BREE)VIS; Value: NEGATIVE; Status: F Test: IMMEDIATE SPIN CROSSMATCH; Value: [id number] A POSITIVE Compatible? Y; Status: F Test: IMMEDIATE SPIN CROSSMATCH; Value: [id number] A POSITIVE Compatible? Y; Status: F Test: IMMEDIATE SPIN CROSSMATCH; Value: [id number] A POSITIVE Compatible? Y; Status: F Test: IMMEDIATE SPIN CROSSMATCH; Value: [id number] A POSITIVE Compatible? Y; Status: F Test: IMMEDIATE SPIN CROSSMATCH; Value: [id number] A POSITIVE Compatible? Y; Status: F Lab Order: BASIC METABOLIC PROFILE; [facility] 05/03/16 10:33 Test: GLUCOSE, FASTING; Value: 159; Range: 80-110; Abnormal: Above high normal; Units: MG/DL; Status: F Test: BLOOD UREA NITROGEN; Value: 120; Range: 7-18; Abnormal: Above high normal; Units: MG/DL; Status: F Test: CREATININE FOR GFR; Value: 2.06; Range: 0.70-1.30; Abnormal: Above high normal; Units: MG/DL; Status: F Test: GLOMERULAR FILTRATION RATE; Value: 34.5; Range: >49; Abnormal: Below low normal; Status: F Test: SODIUM LEVEL; Value: 151; Range: 136-145; Abnormal: Above high normal; Units: MEQ/L; Status: F Test: POTASSIUM SERUM; Value: 4.6; Range: 3.5-5.1; Units: MEQ/L; Status: F Test: CHLORIDE LEVEL; Value: 115; Range: 98-107; Abnormal: Above high normal; Units: MEQ/L; Status: F Test: CARBON DIOXIDE LEVEL; Value: 26; Range: 21-32; Units: MEQ/L; Status: F Test: ANION GAP; Value: 10; Range: 8-16; Units: MEQ/L; Status: F Test: CALCIUM LEVEL; Value: 8.2; Range: 8.8-10.2; Abnormal: Below low normal; Units: MG/DL; Status: F Test Note: ; Units are mL/min/1.73 m2 Chronic Kidney Disease Staging per NKF: Stage I & II GFR >=60 Normal to Mildly Decreased Stage III GFR 30-59 Moderately Decreased Stage IV GFR 15-29 Severely Decreased Stage V GFR <15 Very Little GFR Left ESRD GFR <15 on MACHINE PRINTER Lab Order: COMPLETE BLOOD COUNT; 05/03/16 10:33 Test: WHITE BLOOD COUNT; Value: 11.6; Range: 4.0-10.0; Abnormal: Above high normal; Units: K/mm3; Status: F Test: RED BLOOD COUNT; Value: 2.58; Range: 4.30-6.10; Abnormal: Below low normal; Units: M/mm3; Status: F Test: HEMOGLOBIN; Value: 7.3; Range: 14.0-18.0; Units: g/dl; Status: F Test: HEMATOCRIT; Value: 23.3; Range: 42.0-52.0; Abnormal: Below low normal; Units: %; Status: F Test: MEAN CORPUSCULAR VOLUME; Value: 90.4; Range: 80.0-96.0; Units: fl; Status: F Test: MEAN CORPUSCULAR HEMOGLOBIN; Value: 28.5; Range: 27.0-33.0; Units: pg; Status: F Test: MEAN CORPUSCULAR HGB CONC; Value: 31.5; Range: 32.0-36.5; Abnormal: Below low normal; Units: g/dl; Status: F Test: RED CELL DISTRIBUTION WIDTH; Value: 16.2; Range: 11.5-14.5; Abnormal: Above high normal; Units: %; Status: F Test: PLATELET COUNT, AUTOMATED; Value: 320; Range: 150-450; Units: k/mm3; Status: F Lab Order: PROTHROMBIN TIME PROFILE\E\INR; 05/03/16 10:33 Test: PROTHROMBIN TIME; Value: 32.5; Range: 12.3-14.5; Abnormal: Above high normal; Units: SECONDS; Status: F Test: INR; Value: 3.17; Status: F Test Note: ; THERAPUTIC HUMAN INR VALUES INDICATIONS NORMAL RANGES PROPHYLAXIS/TREATMENT OF: VENOUS THROMBOSIS 2.0-3.0 PULMONARY EMBOLISM 2.0-3.0 PREVENTION OF SYSTEMIC EMBOLISM FROM: TISSUE HEART VALVES 2.0-3.0 ACUTE MYOCARDIAL INFARCTION 2.0-3.0 VALVULAR HEART DISEASE 2.0-3.0 ATRIAL FIBRILLATION 2.0-3.0 MECHANICAL VALVES(HIGH RISK) 2.5-3.5 RECURRENT MYOCARDIAL INFARCTION 2.5-3.5 Lab Order: PATHOLOGIST REVIEW COMPREHENSI; 05/03/16 10:33 Test: SLIDE REVIEW; Value: Report; Status: F Test: SOURCE; Value: PERIPHERAL SMEAR; Status: F Test: REASON FOR REVIEW; Value: COMPREHENSIVE REVIEW; Status: F Test Note: ; Slide and/or specimen referred to Pathologist for review. Results of the review are located in the EMR Pathology module under Peripheral Smear when completed. Lab Order: RETICULOCYTE COUNT; 05/03/16 10:33 Test: RETICULOCYTE % [id number]; Value: 4.60; Range: 0.5-1.5; Abnormal: Above high normal; Units: %; Status: F Test: RETICULOCYTE ABSOLUTE [id number]; Value: 119; Range: 17-77; Abnormal: Above high normal; Units: x10(9)/L; Status: F Test: RETIC HEMOGLOBIN CONTENT CHr; Value: 29.4; Range: 24-36; Units: PG; Status: F Lab Order: TOTAL IRON BINDING CAPACIT; 05/03/16 10:33 Test: IRON (FE); Value: 251; Range: 65-175; Abnormal: Above high normal; Units: UG/DL; Status: F Test: TOTAL IRON BINDING CAPACITY; Value: 284; Range: 250-450; Units: UG/DL; Status: F Test: PERCENT SATURATION; Value: 88.4; Range: 19.7-37.4; Abnormal: Above high normal; Units: %; Status: F Lab Order: Fingerstick Blood Sugar; [facility]05/03/16 07:48 Test: BEDSIDE GLUCOSE; Value: 173; Range: 80-115; Abnormal: Above high normal; Units: MG/DL; Status: F Lab Order: Fingerstick Blood Sugar; [facility]05/03/16 12:39 Test: BEDSIDE GLUCOSE; Value: 157; Range: 80-115; Abnormal: Above high normal; Units: MG/DL; Status: F Radiology Order: Chest, 1 View Test: Chest, 1 View REASON FOR EXAMINATION: Shortness of Breath; Clinical: Acute shortness of breath .; ; Comparison: 09/06/2015 .; ; Findings:; The mediastinum and cardiac silhouette are stable and within normal limits for; portable technique. The lung brady are clear without acute consolidation,; effusion, or pneumothorax. Skeletal structures are intact.; ; Impression:; Normal portable chest x-ray; ; ; Signed by; Jim Higginbotham MD 05/03/2016 01:57 A; Outcome: 05/02 23:30 Decision to Hospitalize by Provider. 05/03 16:29 Patient left the ED. ld5 Signatures: Dispatcher [employer] EDMS Gilmar Vega MD MD pc Michelson, Staci, RN RN srm Zecher, Calvin, RN RN cz Barnhardt, Gloria, Reg Reg gb Donte Estrada, LADDER OPERATOR LADDER OPERATOR kb5 Mikala Perkins RN RN ld5 Brook Leigh, Blender Conveyor Operator Unit Martha Dhillon RN RN [facility] Joan Lopez, LADDER OPERATOR LADDER OPERATOR sharronn Mirza Lira, Reg Reg pm4 Corrections: (The following items were deleted from the chart) 05/02 22:26 22:22 Home Meds: unknown BP med three times a day; mlc mlc 05/03 02:35 02:33 General: Appears in no apparent distress, comfortable, to be sleeping. mlc mlc 02:35 02:33 Respiratory: Airway is patent Respiratory effort is even, unlabored, Respiratory mlc pattern is regular, mlc 02:35 02:33 General: blood transfusing per order. mlc mlc Chart Complete MTDD
[2016-05-05 18:25] LABS: CALCIUM LEVEL 7.7 MG/DL (8.8-10.2); CREATININE FOR GFR 1.62 MG/DL (0.70-1.30); GLOMERULAR FILTRATION RATE 45.5 (>49); POTASSIUM SERUM 4.1 MEQ/L (3.5-5.1)
[2016-05-05 20:00] VITALS: BP 145/65
--- NOTE | 2016-05-05 20:16 | IPN ---
DATE: 05/05/2016 The patient is seen and examined at the bedside. Chart has been reviewed. The patient denies any chest pain, pressure or tightness, hematemesis, bright red blood per rectum. The patient had one bowel movement yesterday. Denies any bright red blood. This morning, the patient has slight shortness of breath with ambulation. Chest x-ray shows no dary edema or dense consolidation. The patient has received fresh frozen plasma transfusion with repeat INR of 1.66. Temperature 96.8, pulse 81, respiratory rate 20, blood pressure 120/69, 94% on room air. GENERAL: Awake, alert and oriented times three. Answering questions appropriately. No use of respiratory or accessory muscles. LUNGS: Diminished with bilateral wheezing. HEART: S1, S2. Regular rate and rhythm. ABDOMEN: Soft, nontender, nondistended. EXTREMITIES: Positive trace edema. LABORATORY DATA: INR 1.66, white count 12.5, hemoglobin 9.3, hematocrit 29, platelet count 277. Sodium 148, potassium 3.5, chloride 112, bicarbonate 31, BUN 45, creatinine 1.38 , glucose of 176, BNP of 1260. Chest x-ray showed no acute edema. ASSESSMENT AND PLAN: This is a 65-year-old male with history of coronary artery disease, non ST elevation myocardial infarction, coronary artery bypass graft (CABG) on Coumadin secondary to small blood clots, diastolic heart failure, hypertension, type 2 diabetes, obesity, who presents to the emergency room complaining of shortness of breath, malaise and fatigue, lightheadedness, dizziness without fever, chills, cough, chest pain, palpitations, abdominal pain , BMD, with black tarry stools admitted for symptomatic anemia and acute blood loss anemia secondary to gastrointestinal bleed. The patient was found to have a hemoglobin of 5, INR of 6.72 with Coumadin coagulopathy. EKG, per Dr. Sánchez, patient can be reversed and no need to continue Coumadin. IMPRESSION: 1. Possible blood transfusion with fresh frozen plasma. The patient currently has no active wheezing at the bedside. Appears to be stable. We will refrain from further fresh frozen plasma. We will continue to give vitamin K until the patient's INR is less than 1.5 and workup for gastrointestinal bleed to proceed on Saturday with EGD and colonoscopy. The patient will require repeat prep on Saturday evening. 2. Acute blood loss anemia secondary to gastrointestinal bleed with symptomatic anemia requiring 5 units of red blood cell transfusion. Transfusion has been held due to fresh frozen plasma. The patient has received vitamin K. For now, acute GI bleed with blood loss anemia, continue with clears diet and nothing by mouth after midnight on Saturday. EGD on Saturday with Dr. Chandler. 3. Coumadin coagulopathy. Coumadin has been discontinued. He has a history of non ST elevation myocardial infarction and coronary artery bypass graft (CABG) with small clot in the past. Per Dr. Sánchez, no need to anticoagulate currently. 4. History of coronary artery disease and non ST elevation myocardial infarction. With complaint of shortness of breath, continue to cycle troponin, cardiac markers. Monitor for now. 5. Hyponatremia, dehydration. Gentle hydration. Monitor for decompensation. 6. Active wheezing. Nebulizer treatments. Monitor for decompensated heart failure. 7. Type 2 diabetes. On sliding scale. MTDD
[2016-05-05] MEDS: ATORVASTATIN 20 MG TAB PO SCH (21:04)
[2016-05-05 23:59] VITALS: BP 132/63
[2016-05-06] MEDS: LEVALBUTEROL 1.25 MG/0.5 ML CONCENTRATE NEB INH SCH ×7 (00:05→23:59)
[2016-05-06] MEDS: IPRATROPIUM 0.02% SOLN 0.5MG/2.5 ML NEB INH SCH ×6 (00:05→19:14)
[2016-05-06 00:33] LABS: CALCIUM LEVEL 7.4 MG/DL (8.8-10.2); CREATININE FOR GFR 1.55 MG/DL (0.70-1.30); GLOMERULAR FILTRATION RATE 47.8 (>49); POTASSIUM SERUM 3.7 MEQ/L (3.5-5.1)
[2016-05-06 04:00] VITALS: BP 124/55
[2016-05-06] MEDS: D5W 1,000 ML IV SCH (05:20)
[2016-05-06] MEDS: SUCRALFATE SUSP 1GM/10ML UD PO SCH ×3 (05:20→16:53)
[2016-05-06] MEDS: SLF 3 ML SYR IV SCH ×3 (05:21→21:21)
[2016-05-06 05:24] LABS: MEAN CORPUSCULAR HEMOGLOBIN 28.9 pg (27.0-33.0); MEAN CORPUSCULAR HGB CONC 31.9 g/dl (32.0-36.5); MEAN CORPUSCULAR VOLUME 90.7 fl (80.0-96.0); RED CELL DISTRIBUTION WIDTH 17.2 % (11.5-14.5); WHITE BLOOD COUNT 10.5 K/mm3 (4.0-10.0)
[2016-05-06 05:30] LABS: INR 1.49
[2016-05-06 05:33] LABS: CALCIUM LEVEL 7.7 MG/DL (8.8-10.2); CREATININE FOR GFR 1.58 MG/DL (0.70-1.30); GLOMERULAR FILTRATION RATE 46.8 (>49); POTASSIUM SERUM 3.5 MEQ/L (3.5-5.1)
[2016-05-06] MEDS: PANTOPRAZOLE 40MG INJ (PROTONIX) (C9113) IV SCH ×2 (07:55→21:20)
[2016-05-06] MEDS: HumaLOG INSULIN (NovoLOG) PER UNIT SC SCH ×4 (07:55→21:21)
[2016-05-06] MEDS: PHYTONADIONE 5 MG TAB PO SCH (07:55)
[2016-05-06] MEDS: **hydrALAZINE HCL** 25 MG TAB PO SCH ×3 (07:56→21:20)
[2016-05-06] MEDS: CARVedilol 6.25 MG TAB PO SCH ×2 (07:56→21:21)
[2016-05-06] MEDS: ASCORBIC ACID 500 MG TAB PO SCH (07:56)
[2016-05-06 08:00] VITALS: BP 127/56
[2016-05-06] MEDS ORDERED: methylPREDNISolone INJ 125 MG/2 ML VIAL (J2930) IV ONE (08:00)
[2016-05-06 12:00] VITALS: BP 146/52
[2016-05-06] MEDS ORDERED: methylPREDNISolone INJ 125 MG/2 ML VIAL (J2930) IV SCH (12:00)
--- NOTE | 2016-05-06 12:22 | REP ---
AP PORTABLE CHEST: 05/06/2016 at 05:01 AM. Comparison: 05/05/2016, 05/04/2016 chest x-rays. Clinical history: Dyspnea. Evaluate for edema. Findings: Sternotomy wires are again seen with the cardiac silhouette prominent even allowing for portable technique. The lung brady are hyperinflated with diffuse underlying interstitial fibrosis. There is less vascular congestion in the right upper lung zone than yesterday. Still some vascular congestion with engorgement of the veins. The underlying fibrosis makes early interstitial edema difficult to exclude. No dense consolidation with air bronchograms but with heavier superimposed patchy atelectasis or infiltrates in the left base. No gross effusion or dary edema. Signed by Vignesh Cohen MD 05/06/2016 07:13 P
[2016-05-06 12:49] LABS: CALCIUM LEVEL 7.7 MG/DL (8.8-10.2); CREATININE FOR GFR 1.6 MG/DL (0.70-1.30); GLOMERULAR FILTRATION RATE 46.1 (>49); POTASSIUM SERUM 4.3 MEQ/L (3.5-5.1)
[2016-05-06] MEDS ORDERED: GOLYTELY SOLN 4000 ML BTL PO ONE (15:00)
[2016-05-06 16:00] VITALS: BP 146/52
--- NOTE | 2016-05-06 17:53 | IPN ---
DATE: 05/06/2016 The patient is seen and examined at the bedside. Chart has been reviewed. This morning, the patient is currently wheezing despite nebulizer treatments. Denies any chest pain, pressure, tightness, lightheadedness. He denies any bright red blood per rectum, melena. Temperature 95.6, pulse 80, respiratory rate 20, blood pressure 127/56, 98% on room air. GENERAL: Awake, alert and oriented to person, place and time. The patient has no cyanosis. No jugular venous distention (JVD). LUNGS: Diminished breath sounds. Lungs with expiratory wheezing. Decreased air entry and coarse rhonchi. HEART: S1, S2. Sinus rhythm. ABDOMEN: Obese. Soft, nontender, nondistended. EXTREMITIES: No pitting edema. LABORATORY DATA: White count is 10.5, hemoglobin 8.8, hematocrit 27, platelet count 247. Sodium 143, potassium 3.5, chloride 107, bicarbonate 28, BU 30, creatinine 1.58, glucose of 140. Input and output: Input of 3 liters, output of 1 liter, positive 2 liters. Current weight is 107.9 kg Chest x-ray on 05/05/2016 shows no dary pulmonary edema, consolidation, or visible effusions. Sternotomy wires from prior coronary artery bypass graft (CABG). Underlying fibrosis. Today's INR is 1.49. ASSESSMENT AND PLAN: This is a 65-year-old male with history of coronary artery disease, non ST elevation myocardial infarction, coronary artery bypass graft (CABG) on Coumadin secondary to small blood clots, diastolic heart failure, hypertension, type 2 diabetes, and obesity, chronic kidney disease stage III, who presented to the emergency room complaining of shortness of breath, malaise and fatigue, lightheadedness, dizziness without fever, chills, cough, chest pain, palpitations, abdominal pain. The patient has been having black, tarry stools admitted for symptomatic anemia and acute blood loss secondary to gastrointestinal bleed. The patient had been taking Coumadin with INR of 6.72 with Coumadin coagulopathy, hemoglobin of 5 on admission. Per, Dr. Sánchez, shruthi patient can be reversed and no need to continue Coumadin as an outpatient. IMPRESSION: 1. Possible blood transfusion reaction with fresh frozen plasma. The patient had been given nebulizer treatments. No further fresh frozen plasma. INR seems to have improved to a safer level to undergo endoscopy. 2. Acute blood loss anemia secondary to gastrointestinal bleed with symptomatic anemia requiring 5 units of red blood cell transfusion. Fresh frozen plasma transfusion, second unit, was held due to episode of rash. The patient has received vitamin KK and INR currently is acceptable for proceeding with endoscopy. 3. Prior history of smoking with current wheezing and possible chronic obstructive pulmonary disease (COPD). Acute onset exacerbation. The patient will be given nebulizer treatments, Solu-Medrol, supplemental oxygen as needed. Stabilize prior to EGD in the morning. 4. Coumadin coagulopathy. Coumadin has been discontinued. 5. History of non ST elevation myocardial infarction and coronary artery bypass graft (CABG) with small clot in the past. Per trim mechanic, Dr. Sánchez, no need to further anticoagulate after discharge. The patient has been reversed to fresh frozen plasma, as well as vitamin KK, currently with a subtherapeutic INR, which would be adequate for endoscopy. 6. History of coronary artery disease, non ST elevation myocardial infarction. Cardiac markers are unremarkable. 7. Hyponatremia, dehydration with acute on chronic renal failure stage III. Gentle hydration. Back at baseline. 6. Active wheezing. Nebulizer treatments. Solu-Medrol. MTDD
[2016-05-06 18:30] LABS: CALCIUM LEVEL 7.7 MG/DL (8.8-10.2); CREATININE FOR GFR 1.64 MG/DL (0.70-1.30); GLOMERULAR FILTRATION RATE 44.8 (>49); POTASSIUM SERUM 4.5 MEQ/L (3.5-5.1)
[2016-05-06] MEDS ORDERED: FUROSEMIDE 40 MG/4 ML VIAL (J1940) IV ONE (19:00)
[2016-05-06 19:15] VITALS: BP_SYST 132; BP_SYST 136; BP_DIAS 50; BP_DIAS 69
[2016-05-06] MEDS: ATORVASTATIN 20 MG TAB PO SCH (21:20)
[2016-05-06 23:59] VITALS: BP 132/58
[2016-05-07] MEDS ORDERED: FUROSEMIDE 40 MG/4 ML VIAL (J1940) IV ONE
[2016-05-07] MEDS: SUCRALFATE SUSP 1GM/10ML UD PO SCH ×5 (00:07→23:00)
[2016-05-07] MEDS: LEVALBUTEROL 1.25 MG/0.5 ML CONCENTRATE NEB INH SCH ×6 (03:35→23:11)
[2016-05-07] MEDS: IPRATROPIUM 0.02% SOLN 0.5MG/2.5 ML NEB INH SCH ×7 (03:35→23:12)
[2016-05-07 04:45] VITALS: BP 152/66
[2016-05-07] MEDS: SLF 3 ML SYR IV SCH ×3 (05:33→20:51)
[2016-05-07 05:40] LABS: INR 1.32
[2016-05-07] MEDS ORDERED: GOLYTELY SOLN 4000 ML BTL PO ONE (06:00)
[2016-05-07 06:01] LABS: MEAN CORPUSCULAR HEMOGLOBIN 28.5 pg (27.0-33.0); MEAN CORPUSCULAR HGB CONC 31.7 g/dl (32.0-36.5); MEAN CORPUSCULAR VOLUME 90.1 fl (80.0-96.0); RED CELL DISTRIBUTION WIDTH 16.9 % (11.5-14.5); WHITE BLOOD COUNT 9.1 K/mm3 (4.0-10.0)
[2016-05-07 06:56] LABS: CALCIUM LEVEL 7.7 MG/DL (8.8-10.2); CREATININE FOR GFR 1.47 MG/DL (0.70-1.30); GLOMERULAR FILTRATION RATE 50.9 (>49); POTASSIUM SERUM 3.7 MEQ/L (3.5-5.1)
[2016-05-07] MEDS: HumaLOG INSULIN (NovoLOG) PER UNIT SC SCH ×4 (07:30→20:50)
[2016-05-07 08:00] VITALS: BP 130/66
[2016-05-07] MEDS: ASCORBIC ACID 500 MG TAB PO SCH (10:17)
[2016-05-07] MEDS: PHYTONADIONE 5 MG TAB PO SCH (10:17)
[2016-05-07] MEDS: **hydrALAZINE HCL** 25 MG TAB PO SCH ×3 (10:17→20:49)
[2016-05-07] MEDS: PANTOPRAZOLE 40MG INJ (PROTONIX) (C9113) IV SCH ×2 (10:17→20:50)
[2016-05-07] MEDS: CARVedilol 6.25 MG TAB PO SCH ×2 (10:18→20:49)
[2016-05-07] MEDS: SLF 3 ML SYR IV PRN ×2 (10:19→12:23)
[2016-05-07] MEDS ORDERED: FUROSEMIDE 20 MG/2 ML VIAL (J1940) IV ONE (10:45)
--- NOTE | 2016-05-07 11:04 | IPN ---
DATE OF VISIT: 05/07/2016 The patient is seen and examined at the [facility]. Chart has been reviewed Yesterday the patient had significant respiratory distress requiring intravenous (IV) Medrol due to significant wheezing. He seems to have improved with two doses of IV Lasix, as well as IV Solu-Medrol nebulizer treatments overnight. Currently he is 98% on room air. He did not complain of any shortness of breath, chest pain, pressure, lightheadedness or near syncopal episode. The patient has had a bowel prep yesterday with INR at 1.4, at 1.32 today for colonoscopy. The patient currently has a stable hemoglobin at 9.5, hematocrit 30. He denies any bright red blood per rectum, melena or hematemesis. PHYSICAL EXAMINATION: VITAL SIGNS: Temperature 96.6, pulse 100, respiratory rate 20, blood pressure 130/66, 98% on room air. GENERAL: The patient is awake, alert and oriented times three, answering questions appropriately. NECK: No jugular venous distention or thyromegaly. LUNGS: Diminished breath sounds with bilateral expiratory wheezing, prolonged expiration. HEART: S1, S2, sinus rhythm. ABDOMEN: Obese, soft, nontender, nondistended. EXTREMITIES: Trace edema. LABORATORY DATA: White count 9, hemoglobin 9.5, hematocrit 30, platelet count 303. Sodium 144, potassium 3.7, chloride 106, bicarbonate 28, BUN 37, creatinine 1.47 , glucose of 187. IMAGING STUDY: Chest x-ray on 05/06, no dary edema or gross effusion. Chronic fibrosis. ASSESSMENT AND PLAN: This is a 65-year-old male with history of chronic pulmonary obstructive disease (COPD) coronary artery disease (CAD), non ST elevation myocardial infarction (SC), congestive heart failure (CHF), diastolic failure, coronary artery bypass grafting (CABG) on Coumadin prior to admission secondary to small blood clots, hypertension, type 2 diabetes, obesity, chronic kidney disease stage III, baseline creatinine of 1.5 presents to the emergency room with ongoing complaints of shortness of breath, malaise, fatigue, lightheadedness, dizziness without fever, chills, cough, chest pain, palpitations or abdominal pain. The patient has been having black, tarry stools admitted for symptomatic anemia with acute blood loss secondary to gastrointestinal bleed. The patient had been taking Coumadin for blood clots in the heart status post his coronary artery bypass grafting with INR of 6.72 with Coumadin coagulopathy and hemoglobin of 5 on hospital admission. Per Dr. Sánchez, his freight clerk, the patient can be reversed with no need to continue Coumadin as an outpatient. During the hospital stay the patient received fresh frozen plasma (FFP) and red blood cells. He developed a rash with a second unit of FFP blood bank recorded possible nonhemolytic transfusion reaction. The patient has since been very wheezing, he has been given intravenous Solu-Medrol and Lasix for possible transfusion related volume overload. IMPRESSION: 1. Nonhemolytic transfusion reaction to fresh frozen plasma. The patient's INR is currently at 1.3 and may proceed to perform colonoscopy to evaluate his acute gastrointestinal (GI) bleed leading to symptomatic anemia requiring red blood cell transfusion. Continue with full supportive care with Lasix if continued fluid overload is suspected; however, the patient has significantly improved with 80 mg IV Lasix given yesterday, as well as, IV Solu-Medrol with improvement in his air entry and decreased wheezing. He is saturating 98% on room air currently. 2. Acute blood loss anemia secondary to GI bleed with symptomatic anemia requiring 5 units of red blood cell transfusion. The patient's fresh frozen plasma second unit was held due to episode of rash. The patient did have a nonhemolytic transfusion reaction to fresh frozen plasma (FFP). He did receive vitamin K. INR is acceptable for proceeding with colonoscopy. 3. Symptomatic anemia secondary to acute blood loss from GI bleed. The patient has been titrated to hemoglobin of 9 which is adequate for him right now. No acute indication for repeat red blood cell transfusion unless his symptomatic anemia worsens or the patient decreases the hemoglobin to less than 8. 4. Prior history of smoking, plus chronic pulmonary obstructive disease (COPD) exacerbation versus transfusion associated volume overload. At this time the patient has been given IV Lasix and Solu-Medrol. Will continue on IV Solu-Medrol nebulizer treatments, supplemental oxygen for O2 saturation less than 88. The patient is currently significantly improved and may proceed with his colonoscopy. 5. Coumadin coagulopathy. Coumadin has been discontinued. 6. History of non-ST elevation myocardial infarction and coronary artery bypass grafting. Small clots in the past. Per his freight clerk, Dr. Sánchez, no need to further anticoagulate after hospital discharge. The patient has been reversed with fresh frozen plasma to which he has had a transfusion reaction which was nonhemolytic. Continue with supportive care. He currently has no ischemic symptoms. 7. History of coronary artery disease, non ST elevation myocardial infarction. Cardiac markers were unremarkable. 8. Acute on chronic renal failure, stage III. Currently at baseline. [facility]
[2016-05-07] MEDS: methylPREDNISolone INJ 125 MG/2 ML VIAL (J2930) IV SCH ×2 (12:20→22:59)
--- NOTE | 2016-05-07 16:04 | ROOR ---
Patient Name: Stephen Bass Procedure Date: 05/07/2016 3:50 PM Date of : 1950 Age: 65 Room: [facility] Gender: Male Note Status: Finalized Procedure: Upper GI endoscopy + Biopsies Indications: Recent gastrointestinal bleeding, Gastrointestinal bleeding of unknown origin Providers: Sathish Chandelr MD Referring MD: Caroline Mitchell [facility] Requesting Provider: Medicines: Monitored Anesthesia Care Complications: No immediate complications. Procedure: Pre-Anesthesia Assessment: - The heart rate, respiratory rate, oxygen saturations, blood pressure, adequacy of pulmonary ventilation, and response to care were monitored throughout the procedure. The Endoscope was introduced through the mouth, and advanced to the second part of duodenum. The upper GI endoscopy was accomplished without difficulty. The patient tolerated the procedure well. Findings: The Z-line was irregular and was found 39 cm from the incisors. Multiple biopsies were obtained with cold forceps for evaluation to rule out Landis's Esophagus randomly at the gastroesophageal junction. A medium-sized hiatal hernia was present. No other significant abnormalities were identified in a careful examination of the stomach. The exam of the duodenum was otherwise normal. Impression: - Z-line irregular, 39 cm from the incisors. - Medium-sized hiatal hernia. - Multiple biopsies were obtained at the gastroesophageal junction. - The examination was otherwise normal. Recommendation: - Patient has a contact number available for emergencies. The signs and symptoms of potential delayed complications were discussed with the patient. Return to normal activities tomorrow. Written discharge instructions were provided to the patient. - High fiber diet. - Discharge patient to home. - Continue present medications. - Follow an antireflux regimen. - Await pathology results. - Telephone GI clinic for pathology results in 1 week. - Return to referring physician. - The findings and recommendations were discussed with the patient. Sathish Chandler MD Sathish Chandler MD 05/07/2016 4:04:04 PM This report has been signed electronically. Number of Addenda: 0 Note Initiated On: 05/07/2016 3:50 PM Estimated Blood Loss: Estimated blood loss: none.
[2016-05-07] MEDS ORDERED: PHENYLephrine HCL 500 MCG/5 ML (100MCG/ML) SYRINGE (J2370) As Ordered ONE (16:07)
--- NOTE | 2016-05-07 16:14 | ROOR ---
Patient Name: Stephen Bass Procedure Date: 05/07/2016 3:46 PM Date of : 1950 Age: 65 Room: [facility] Gender: Male Note Status: Finalized Procedure: Colonoscopy to 30 cms ( POOR PREP) Indications: Gastrointestinal bleeding Providers: Sathish Chandler MD Referring MD: Caroline Mitchell [facility] Requesting Provider: Medicines: Monitored Anesthesia Care Complications: No immediate complications. Procedure: Pre-Anesthesia Assessment: - The heart rate, respiratory rate, oxygen saturations, blood pressure, adequacy of pulmonary ventilation, and response to care were monitored throughout the procedure. The Colonoscope was introduced through the anus with the intention of advancing to the cecum. The scope was advanced to the sigmoid colon before the procedure was aborted. Medications were given. The colonoscopy was performed with difficulty due to inadequate bowel prep. The patient tolerated the procedure well. Findings: The perianal and digital rectal examinations were normal. Extensive amounts of stool was found at the anus, in the rectum, in the recto-sigmoid colon and in the sigmoid colon, interfering with visualization. The exam was otherwise without abnormality. Impression: - Stool at the anus, in the rectum, in the recto-sigmoid colon and in the sigmoid colon. - The examination was otherwise normal. - No specimens collected. - The exam was suboptimal due to patient preparation. Recommendation: - Return patient to [facility] for ongoing care. - Continue present medications. - Repeat colonoscopy at appointment to be scheduled for surveillance. Sathish Chandler MD Sathish Chandler MD 05/07/2016 4:13:57 PM This report has been signed electronically. Number of Addenda: 0 Note Initiated On: 05/07/2016 3:46 PM Estimated Blood Loss: Estimated blood loss: none.
[2016-05-07] MEDS ORDERED: LIDOCAINE 2% INJ 100 MG/5 ML SDV (FOR ANES.) As Ordered ONE (16:17)
[2016-05-07] MEDS ORDERED: PROPOFOL 200 MG/20 ML VIAL As Ordered ONE (16:17)
[2016-05-07 16:20] VITALS: BP 117/67
[2016-05-07 16:35] VITALS: BP 150/69
[2016-05-07 17:00] VITALS: BP 167/75
[2016-05-07 19:51] VITALS: BP 136/63
[2016-05-07] MEDS: ATORVASTATIN 20 MG TAB PO SCH (20:48)
[2016-05-08] MEDS: IPRATROPIUM 0.02% SOLN 0.5MG/2.5 ML NEB INH SCH ×3 (03:34→11:13)
[2016-05-08] MEDS: LEVALBUTEROL 1.25 MG/0.5 ML CONCENTRATE NEB INH SCH ×3 (03:34→11:13)
[2016-05-08 04:31] VITALS: BP 160/92
[2016-05-08] MEDS: SUCRALFATE SUSP 1GM/10ML UD PO SCH (05:03)
[2016-05-08] MEDS: SLF 3 ML SYR IV SCH (05:03)
[2016-05-08 05:15] LABS: MEAN CORPUSCULAR HEMOGLOBIN 28.8 pg (27.0-33.0); MEAN CORPUSCULAR HGB CONC 31.1 g/dl (32.0-36.5); MEAN CORPUSCULAR VOLUME 92.4 fl (80.0-96.0); RED CELL DISTRIBUTION WIDTH 16.8 % (11.5-14.5); WHITE BLOOD COUNT 11.3 K/mm3 (4.0-10.0)
[2016-05-08 05:29] LABS: INR 1.17
[2016-05-08] MEDS: HumaLOG INSULIN (NovoLOG) PER UNIT SC SCH (07:59)
[2016-05-08 08:00] VITALS: BP 167/73
[2016-05-08] MEDS: PANTOPRAZOLE 40MG INJ (PROTONIX) (C9113) IV SCH (08:36)
[2016-05-08] MEDS: PHYTONADIONE 5 MG TAB PO SCH (08:36)
[2016-05-08 08:37] VITALS: BP 167/73
[2016-05-08] MEDS: **hydrALAZINE HCL** 25 MG TAB PO SCH (08:37)
[2016-05-08] MEDS: ASCORBIC ACID 500 MG TAB PO SCH (08:37)
[2016-05-08] MEDS: CARVedilol 6.25 MG TAB PO SCH (08:37)
[2016-05-08] MEDS ORDERED: PRED10TA FT (10:48)
[2016-05-08] MEDS ORDERED: SUCR1TAB56 PO (10:48)
[2016-05-08] MEDS ORDERED: PROT1TAB2 PO (10:48)
[2016-05-08] MEDS ORDERED: FERR325T3 PO (10:48)
--- NOTE | 2016-05-08 16:40 | DSES ---
DATE OF ADMISSION: 05/02/2016 DATE OF DISCHARGE: 05/08/2016 PRIMARY CARE PROVIDER: JOCELYNN George REFERRING PHYSICIAN: None. CONSULTING PHYSICIAN: Dr. Chandler. CONDITION ON DISCHARGE: Stable. FINAL DIAGNOSIS: Acute blood loss anemia secondary to gastrointestinal (GI) loss. PROCEDURES: Upper and lower endoscopy performed on 05/07/2016. HISTORY OF PRESENT ILLNESS: The patient is a 65-year-old male with a past medical history of coronary artery disease with [id number] myocardial infarction (NSTEMI) on 08/23/2015 and subsequent coronary artery bypass graft (CABG) times four on 08/24/2015, on Coumadin, diastolic heart failure, hypertension, and diabetes mellitus who presented to the emergency room with chief complaint of worsening shortness of breath over the last five days. The patient states that he has been feeling short of breath, associated with malaise and fatigue during that time. He also is feeling lightheaded and dizzy as well. He denies any fevers, chills, cough, chest pain, palpitations, abdominal pain, paroxysmal nocturnal dyspnea (PND), orthopnea, increasing lower extremity swelling, or any nausea, vomiting or diarrhea. Of note, the patient does state that he has been having black colored stools but notes that these have been evident ever since he started ferrous sulfate for his iron deficiency anemia. He has not noted any dary blood or any increase in the frequency of dark stools. He denies having an esophagogastroduodenoscopy (EGD) or colonoscopy done in the past or having seen any GI physician in the past. In the emergency room, the patient was found to have a hemoglobin of 5.1 and international normalized ratio (INR) 6.72. He was admitted for acute blood loss anemia secondary to a supratherapeutic INR. HOSPITAL COURSE: 1. Acute blood loss anemia, secondary to gastrointestinal bleed with symptomatic anemia requiring five units of packed red blood cells (PRBC) transfusion. The patient received fresh frozen plasma of two units and upon receiving the second unit, the patient developed a nonhemolytic transfusion reaction. The patient's hemoglobin had remained stable. He had no further episodes of bleeding. The patient had EGD and colonoscopy performed on 05/07/2016 which did not reveal any significant source of bleeding. 2. Nonhemolytic transfusion reaction, secondary to fresh frozen plasma. The patient's INR initially was supratherapeutic and has been trending down after receiving the fresh frozen plasma. He has received vitamin K as well and most recently his INR is now approaching normal. The patient had no further episodes of bleeding. The patient was given Solu-Medrol IV for nonhemolytic transfusion reaction. Upon discharge, he was given a tapering dose of prednisone. 3. Symptomatic anemia, secondary to acute blood loss anemia, secondary to gastrointestinal bleed. The patient's hemoglobin remained stable. 4. Prior history of smoking and history of chronic obstructive pulmonary disease (COPD), exacerbation versus transfusion-associated volume overload. The patient was given IV Lasix and Solu-Medrol. Upon discharge, the patient was given a tapering dose of steroids. 5. Coumadin coagulopathy. Coumadin has been discontinued. The patient was initially on Coumadin for a possible clot within the ventricle. However, at this point, this was discussed with cardiology and, at this point, he does not require any further anticoagulation. 6. History of NSTEMI and CABG, small clots in the past in the ventricles. Per youth care specialist, Dr. Sánchez, no need to further anticoagulate after the hospital discharge. 7. History of coronary artery disease. The patient denied any chest pain. Cardiac markers remained unremarkable. 8. Acute on chronic renal failure, stage III, currently at baseline. 9. Deep vein thrombosis (DVT) prophylaxis. He was put on sequential compression devices. DISCHARGE MEDICATIONS: The patient was discharged home with the following medication list: - ascorbic acid 500 mg by mouth daily - aspirin 81 mg by mouth daily - atorvastatin 40 mg by mouth at bedtime - carvedilol 6.25 mg by mouth twice a day - hydralazine 25 mg by mouth three times a day - linagliptin 5 mg by mouth daily - metformin 500 mg by mouth twice a day - multivitamins one tablet by mouth daily - nitroglycerin one patch transdermally daily - ranitidine one tablet by mouth daily - torsemide 30 mg by mouth twice a day Medications that were stopped include: - ferrous sulfate 325 mg by mouth daily - warfarin on an alternating dosage was also stopped New medications which were prescribed include: - ferrous sulfate 325 mg by mouth twice a day - Protonix 40 mg by mouth daily - prednisone 10 mg as directed - sucralfate 1 gram by mouth before meals and at bedtime as directed DISCHARGE INSTRUCTIONS: The patient was advised to followup with his primary care provider and corporate meeting planner within the next seven days. He was advised to call to confirm his scheduled appointment. He was advised to remain compliant with treatment plan and medications and return to the emergency room if he experiences any problems. TIME SPENT ON DISCHARGE: 35 minutes.
== END 2016-05-08 12:55 | disposition home or self-care (01) | DRG 813 ==
LOC: M ED 22:07 → M ED INP 23:37 → M PCU 05-03 16:26
PROVIDERS: ADMIT Internal Medicine; ATTEND Internal Medicine
PROC: 30253N1 (ICD-10-PCS; principal; 2016-05-02)
PROC: 30253K1 (ICD-10-PCS; 2016-05-03)
PROC: 0DB48ZX Excision of Esophagogastric Junction, Via Natural or Artificial Opening Endoscopic, Diagnostic (ICD-10-PCS; 2016-05-07)
PROC: 0DJD8ZZ Inspection of Lower Intestinal Tract, Via Natural or Artificial Opening Endoscopic (ICD-10-PCS; 2016-05-07)
DX: D68.32 Hemorrhagic disorder due to extrinsic circulating anticoagulants (principal); N17.9 Acute kidney failure, unspecified; I50.32 Chronic diastolic (congestive) heart failure; I13.0 Hypertensive heart and chronic kidney disease with heart failure and stage 1 through stage 4 chronic kidney disease, or unspecified chronic kidney disease; D62 Acute posthemorrhagic anemia; K92.2 Gastrointestinal hemorrhage, unspecified; E87.1 Hypo-osmolality and hyponatremia; D50.9 Iron deficiency anemia, unspecified; E78.5 Hyperlipidemia, unspecified; I25.10 Atherosclerotic heart disease of native coronary artery without angina pectoris; I25.2 Old myocardial infarction; N18.3 Chronic kidney disease, stage 3 (moderate); E11.9 Type 2 diabetes mellitus without complications; Z95.1 Presence of aortocoronary bypass graft; T80.89XA Other complications following infusion, transfusion and therapeutic injection, initial encounter; L50.9 Urticaria, unspecified; E86.0 Dehydration; R06.2 Wheezing; K22.70 Barrett's esophagus without dysplasia; K44.9 Diaphragmatic hernia without obstruction or gangrene; T45.515A Adverse effect of anticoagulants, initial encounter; Z79.82 Long term (current) use of aspirin; Z79.84 Long term (current) use of oral hypoglycemic drugs; Z79.01 Long term (current) use of anticoagulants; Z79.899 Other long term (current) drug therapy

== ENCOUNTER → 2016-05-21 | Outpatient (REF) | payer OTHER, MEDICAID ==
[~2016-05-21] MED LIST changes: +ASCO500T PO; +FERR325T PO; +FERR325T3 PO; +HYDR-4266 PO; +PRED10TA FT; +PROT1TAB2 PO; +RANI150T PO; +SUCR1TAB56 PO; +WARF-20 PO; +WARF4TAB51 PO
[2016-05-21 16:11] LABS: MEAN CORPUSCULAR HEMOGLOBIN 29.5 pg (27.0-33.0); MEAN CORPUSCULAR HGB CONC 32.1 g/dl (32.0-36.5); RED CELL DISTRIBUTION WIDTH 15.2 % (11.5-14.5)
== END ==
LOC: M SFHCSACK 08:54
PROVIDERS: ATTEND Physician Assistant
DX: D62 Acute posthemorrhagic anemia (principal)
CPT/HCPCS: 36415; 85027; G0463

== ENCOUNTER → 2016-07-06 | Outpatient (REF) | payer OTHER, MEDICAID ==
[2016-07-06 18:06] LABS: ALBUMIN 3.3 GM/DL (3.2-5.2); ALBUMIN/GLOBULIN RATIO 0.89 (1.00-1.93); BILIRUBIN,TOTAL 0.1 MG/DL (0.2-1.0); CALCIUM LEVEL 8.8 MG/DL (8.8-10.2); CREATININE FOR GFR 1.98 MG/DL (0.70-1.30); GLOMERULAR FILTRATION RATE 36.1 (>49); MAGNESIUM LEVEL 2.3 MG/DL (1.8-2.4); PERCENT SATURATION 14.9 % (19.7-37.4); POTASSIUM SERUM 5.1 MEQ/L (3.5-5.1)
[2016-07-06 18:32] LABS: MEAN CORPUSCULAR HEMOGLOBIN 27.4 pg (27.0-33.0); MEAN CORPUSCULAR HGB CONC 30.4 g/dl (32.0-36.5); MEAN CORPUSCULAR VOLUME 89.9 fl (80.0-96.0); RED CELL DISTRIBUTION WIDTH 14.9 % (11.5-14.5); WHITE BLOOD COUNT 10.6 K/mm3 (4.0-10.0)
== END ==
LOC: M SFHCSACK 08:04
PROVIDERS: ATTEND Physician Assistant
DX: D50.9 Iron deficiency anemia, unspecified (principal); I10 Essential (primary) hypertension; E11.9 Type 2 diabetes mellitus without complications

== ENCOUNTER → 2016-10-05 | Outpatient (REF) | payer OTHER, MEDICAID ==
[~2016-10-05] MED LIST changes: -ATOR40TA PO; +ATOR40TA75 PO; -AVEL1TAB PO; +AVEL1TAB3 PO; -DOCU100C PO; +DOCU100C16 PO; +FERR1TAB8 PO; -FERR325T PO; -FOLI1TAB2 PO; +FOLI1TAB4 PO; +HYDR-3910 PO; -HYDR-4266 PO; -METF500T PO; +METF500T13 PO; +PERC5TAB12 PO; -PERC5TAB6 PO; -PRED10TA FT; +PRED10TA2 FT
[2016-10-05 17:51] LABS: BASO # 0.1 K/mm3 (0.0-0.2); BASO % 0.6 % (0.0-1.0); EOS # 0.6 K/mm3 (0.0-0.50); EOS % 4.8 % (0.0-3.0); LARGE UNSTAINED CELL # 0.2 K/mm3 (0.0-0.4); LARGE UNSTAINED CELL % 1.4 % (0.0-4.0); LYMPH # 2.2 K/mm3 (1.5-4.5); LYMPH % 16.7 % (24.0-44.0); MEAN CORPUSCULAR HEMOGLOBIN 28.3 pg (27.0-33.0); MEAN CORPUSCULAR VOLUME 91.2 fl (80.0-96.0); MONO # 0.8 K/mm3 (0.0-0.8); MONO % 6.8 % (0.0-5.0); NEUTROPHILS # 8.5 K/mm3 (1.8-7.7); NEUTROPHILS % 69.8 % (36.0-66.0); PLATELET COUNT, AUTOMATED 391 k/mm3 (150-450); RED CELL DISTRIBUTION WIDTH 15.2 % (11.5-14.5); WHITE BLOOD COUNT 12.2 K/mm3 (4.0-10.0)
[2016-10-05 18:22] LABS: ALBUMIN/GLOBULIN RATIO 0.79 (1.00-1.93); BILIRUBIN,TOTAL 0.3 MG/DL (0.2-1.0); CALCIUM LEVEL 9.2 MG/DL (8.8-10.2); CREATININE FOR GFR 1.72 MG/DL (0.70-1.30); GLOMERULAR FILTRATION RATE 42.3 (>49); TOTAL PROTEIN 6.8 GM/DL (6.4-8.2)
[2016-10-05 18:29] LABS: POTASSIUM SERUM 5.2 MEQ/L (3.5-5.1)
== END ==
LOC: M SFHCSACK 08:34
PROVIDERS: ATTEND Physician Assistant
DX: I50.20 Unspecified systolic (congestive) heart failure (principal); E11.69 Type 2 diabetes mellitus with other specified complication

== ENCOUNTER → 2017-04-19 | Outpatient (REF) | payer OTHER, MEDICAID ==
[2017-04-19 15:41] LABS: ALBUMIN 3.4 GM/DL (3.2-5.2); ALBUMIN/GLOBULIN RATIO 0.89 (1.00-1.93); ALKALINE PHOSPHATASE 71 U/L (45-117); ALT/SGPT 16 U/L (12-78); ANION GAP 8 MEQ/L (8-16); AST/SGOT 9 U/L (7-37); BILIRUBIN,TOTAL 0.3 MG/DL (0.2-1.0); BLOOD UREA NITROGEN 114 MG/DL (7-18); CARBON DIOXIDE LEVEL 30 MEQ/L (21-32); CHLORIDE LEVEL 104 MEQ/L (98-107); CREATININE FOR GFR 2.34 MG/DL (0.70-1.30); GLOMERULAR FILTRATION RATE 29.7 (>49); GLUCOSE, FASTING 157 MG/DL (70-100); SODIUM LEVEL 142 MEQ/L (136-145); TOTAL PROTEIN 7.2 GM/DL (6.4-8.2)
[2017-04-19 15:45] LABS: ESTIMATED AVERAGE GLUCOSE 151 MG/DL (60-110); HEMOGLOBIN A1c 6.9 %
[2017-04-19 15:47] LABS: TOTAL 25(OH) VITAMIN D 20.1 NG/ML (30.0-100.0)
[2017-04-19 15:48] LABS: BASO # 0.1 10^3/uL (0.0-0.2); BASO % 0.5 % (0.0-1.0); EOS # 0.6 10^3/uL (0.0-0.50); EOS % 4.7 % (0.0-3.0); HEMOGLOBIN 10.8 g/dl (14.0-18.0); IMMATURE GRANULOCYTE # 0.1 10^3/uL (0-0); IMMATURE GRANULOCYTE % 0.4 % (0-0); LYMPH # 2.4 10^3/uL (1.5-4.5); LYMPH % 17.4 % (24.0-44.0); MEAN CORPUSCULAR HEMOGLOBIN 28.6 pg (27.0-33.0); MEAN CORPUSCULAR HGB CONC 30.9 g/dl (32.0-36.5); MEAN CORPUSCULAR VOLUME 92.8 fl (80.0-96.0); MONO % 7.4 % (0.0-5.0); NEUTROPHILS # 9.5 10^3/uL (1.8-7.7); NEUTROPHILS % 69.6 % (36.0-66.0); PLATELET COUNT, AUTOMATED 342 10^3/uL (150-450); RED BLOOD COUNT 3.77 10^6/uL (4.30-6.10); WHITE BLOOD COUNT 13.6 10^3/uL (4.0-10.0)
== END ==
LOC: M SFHCSACK 09:00
DX: D64.9 Anemia, unspecified (principal); E11.29 Type 2 diabetes mellitus with other diabetic kidney complication; E55.9 Vitamin D deficiency, unspecified
CPT/HCPCS: 80053

== ENCOUNTER → 2017-09-17 | Outpatient (CLI) | payer OTHER, MEDICAID ==
[2017-09-17 12:33] LABS: BASO # 0.1 10^3/uL (0.0-0.2); BASO % 0.5 % (0.0-1.0); EOS # 0.4 10^3/uL (0.0-0.50); EOS % 3.8 % (0.0-3.0); HEMATOCRIT 33.9 % (42.0-52.0); HEMOGLOBIN 10.3 g/dl (13.5-17.5); IMMATURE GRANULOCYTE % 0.4 % (0-3.0); LYMPH # 1.8 10^3/uL (1.5-4.5); LYMPH % 16.5 % (24.0-44.0); MEAN CORPUSCULAR HEMOGLOBIN 28.3 pg (27.0-33.0); MEAN CORPUSCULAR HGB CONC 30.4 g/dl (32.0-36.5); MEAN CORPUSCULAR VOLUME 93.1 fl (80.0-96.0); MONO # 1.2 10^3/uL (0.0-0.8); MONO % 11.1 % (0.0-5.0); NEUTROPHILS # 7.6 10^3/uL (1.8-7.7); NEUTROPHILS % 67.7 % (36.0-66.0); PLATELET COUNT, AUTOMATED 364 10^3/uL (150-450); RED BLOOD COUNT 3.64 10^6/uL (4.30-6.10); RED CELL DISTRIBUTION WIDTH 14.7 % (11.5-14.5); WHITE BLOOD COUNT 11.2 10^3/uL (4.0-10.0)
[2017-09-17 12:41] LABS: TOTAL 25(OH) VITAMIN D 54.4 NG/ML (30.0-100.0)
[2017-09-17 13:03] LABS: ALBUMIN 3.2 GM/DL (3.2-5.2); ALBUMIN/GLOBULIN RATIO 0.91 (1.00-1.93); ALKALINE PHOSPHATASE 77 U/L (45-117); ALT/SGPT 15 U/L (12-78); ANION GAP 8 MEQ/L (8-16); AST/SGOT 9 U/L (7-37); BILIRUBIN,TOTAL 0.2 MG/DL (0.2-1.0); BLOOD UREA NITROGEN 79 MG/DL (7-18); CALCIUM LEVEL 9.1 MG/DL (8.8-10.2); CARBON DIOXIDE LEVEL 31 MEQ/L (21-32); CHLORIDE LEVEL 105 MEQ/L (98-107); GLOMERULAR FILTRATION RATE 28.7 (>49); GLUCOSE, FASTING 138 MG/DL (70-100); SODIUM LEVEL 144 MEQ/L (136-145); TOTAL PROTEIN 6.7 GM/DL (6.4-8.2)
[2017-09-17 13:08] LABS: POTASSIUM SERUM 5.4 MEQ/L (3.5-5.1)
[2017-09-17 13:42] LABS: ESTIMATED AVERAGE GLUCOSE 140 MG/DL (60-110); HEMOGLOBIN A1c 6.5 %
== END ==
LOC: M WUC 09:00
DX: E55.9 Vitamin D deficiency, unspecified (principal)
CPT/HCPCS: 80053

== ENCOUNTER → 2017-10-09 | Outpatient (REF) | payer OTHER, MEDICAID ==
[2017-10-09 13:59] LABS: TOTAL PROTEIN 6.5 GM/DL (6.4-8.2)
[2017-10-09 14:12] LABS: TOTAL PROTEIN,RANDOM URINE 76.1 MG/DL (0.0-12.0); URINE TOTAL PROTEIN 76.1 MG/DL (0-12)
[2017-10-10 13:29] LABS: IMMUNOTYPING SERUM IGG ABNORMAL (NORMAL); IMMUNOTYPING SERUM KAPPA ABNORMAL (NORMAL)
[2017-10-10 13:31] LABS: ALBUMIN 3.32 GM/DL (3.29-5.55); ALBUMIN % 51.1 % (55.8-66.1); ALPHA-1-GLOBULIN % 5.7 % (2.9-4.9); ALPHA-1-GLOBULINS 0.37 GM/DL (0.17-0.41); ALPHA-2-GLOBULINS % 16.9 % (7.1-11.8); BETA-1-GLOBULINS 0.42 GM/DL (0.28-0.60); BETA-1-GLOBULINS % 6.4 % (4.7-7.2); BETA-2-GLOBULINS % 6.3 % (3.2-6.5); GAMMA GLOBULIN % 13.6 % (11.1-18.8)
[2017-10-10 13:32] LABS: BETA-2-GLOBULINS 0.41 GM/DL (0.19-0.55); GAMMA GLOBULINS 0.88 GM/DL (0.65-1.58)
[2017-10-12 00:05] LABS: ANCA-ATYPICAL <1:20 titer (Neg:<1:20); ANTINUCLEAR ANTIBODIES DIRECT Negative (Negative); CYTOPLASMIC NEUTROP AB ANCA-C <1:20 titer (Neg:<1:20); FREE LAMBDA LIGHT CHAINS SERUM 42.7 mg/L (5.7-26.3); KAPPA/LAMBDA RATIO SERUM 1.57 (0.26-1.65); PERINUCLEAR AB ANCA-P <1:20 titer (Neg:<1:20)
[2017-10-17 14:18] LABS: UPEP INTERPRETATION NO M-SPIKE NOTED; URINE VOLUME RANDOM ML
== END ==
LOC: M LAB REF 13:12
DX: N18.3 Chronic kidney disease, stage 3 (moderate) (principal); R80.9 Proteinuria, unspecified
CPT/HCPCS: 84165

== ENCOUNTER → 2017-11-11 | Outpatient (CLI) | payer OTHER, MEDICAID | LOC: M WUC 09:21 | DX: M25.552 Pain in left hip (principal) | CPT/HCPCS: 73502 ==

== ENCOUNTER → 2018-01-03 | Outpatient (REF) | payer OTHER, MEDICAID ==
[2018-01-03 15:09] LABS: BASO # 0.1 10^3/uL (0.0-0.2); BASO % 0.4 % (0.0-1.0); EOS # 0.4 10^3/uL (0.0-0.50); EOS % 3.3 % (0.0-3.0); HEMATOCRIT 36.4 % (42.0-52.0); HEMOGLOBIN 10.8 g/dl (13.5-17.5); IMMATURE GRANULOCYTE % 0.3 % (0-3.0); LYMPH # 1.7 10^3/uL (1.5-4.5); MEAN CORPUSCULAR HEMOGLOBIN 28.1 pg (27.0-33.0); MEAN CORPUSCULAR HGB CONC 29.7 g/dl (32.0-36.5); MEAN CORPUSCULAR VOLUME 94.5 fl (80.0-96.0); MONO # 0.9 10^3/uL (0.0-0.8); MONO % 7.6 % (0.0-5.0); NEUTROPHILS # 8.5 10^3/uL (1.8-7.7); NEUTROPHILS % 73.4 % (36.0-66.0); PLATELET COUNT, AUTOMATED 316 10^3/uL (150-450); RED BLOOD COUNT 3.85 10^6/uL (4.30-6.10); RED CELL DISTRIBUTION WIDTH 15.2 % (11.5-14.5); WHITE BLOOD COUNT 11.5 10^3/uL (4.0-10.0)
[2018-01-03 15:21] LABS: ALBUMIN 3.2 GM/DL (3.2-5.2); ALBUMIN/GLOBULIN RATIO 0.94 (1.00-1.93); ALKALINE PHOSPHATASE 76 U/L (45-117); ALT/SGPT 16 U/L (12-78); ANION GAP 8 MEQ/L (8-16); AST/SGOT 8 U/L (7-37); BILIRUBIN,TOTAL 0.2 MG/DL (0.2-1.0); BLOOD UREA NITROGEN 110 MG/DL (7-18); CALCIUM LEVEL 9.4 MG/DL (8.8-10.2); CARBON DIOXIDE LEVEL 32 MEQ/L (21-32); CHLORIDE LEVEL 104 MEQ/L (98-107); CHOLESTEROL LEVEL 117 MG/DL (<200); CHOLESTEROL RISK RATIO 2.489 (<5); CREATININE FOR GFR 2.32 MG/DL (0.70-1.30); GLOMERULAR FILTRATION RATE 29.9 (>49); GLUCOSE, FASTING 169 MG/DL (70-100); HDL CHOLESTEROL 47 MG/DL (>40); LDL CHOLESTEROL 48 MG/DL (<100); NON-HDL-C 70 MG/DL; POTASSIUM SERUM 5.5 MEQ/L (3.5-5.1); SODIUM LEVEL 144 MEQ/L (136-145); TOTAL PROTEIN 6.6 GM/DL (6.4-8.2); TRIGLYCERIDES LEVEL 111 MG/DL (<150)
[2018-01-03 15:29] LABS: ESTIMATED AVERAGE GLUCOSE 151 MG/DL (60-110); HEMOGLOBIN A1c 6.9 %
[2018-01-03 16:06] LABS: CREATININE, URINE 25.7 MG/DL; MAU/CREAT RATIO 1883.3 MCG/MG (0.0-30.0)
== END ==
LOC: M SFHCSACK 08:34
DX: N18.3 Chronic kidney disease, stage 3 (moderate) (principal); E11.22 Type 2 diabetes mellitus with diabetic chronic kidney disease; D63.1 Anemia in chronic kidney disease; E78.2 Mixed hyperlipidemia
CPT/HCPCS: 80053

== ENCOUNTER → 2018-04-03 | Outpatient (REF) | payer OTHER, MEDICAID ==
[~2018-04-03] MED LIST changes: +FOLI1TAB11 PO; -FOLI1TAB4 PO; -RAMI1.25 PO; +RAMI1CAP21 PO; +RAMI1CAP24 PO; -RAMI5CA PO
[2018-04-03 13:39] LABS: FERRITIN 60 NG/ML (26-388); IRON (FE) 41 UG/DL (65-175); TOTAL IRON BINDING CAPACITY 257 UG/DL (250-450); TOTAL PROTEIN 6.6 GM/DL (6.4-8.2)
[2018-04-03 13:42] LABS: TOTAL PROTEIN,RANDOM URINE 89.7 MG/DL (0.0-12.0); URINE TOTAL PROTEIN 89.7 MG/DL (0-12)
[2018-04-05 00:08] LABS: FREE KAPPA LIGHT CHAINS SERUM 76.8 mg/L (3.3-19.4); FREE LAMBDA LIGHT CHAINS SERUM 44.7 mg/L (5.7-26.3); KAPPA/LAMBDA RATIO SERUM 1.72 (0.26-1.65)
[2018-04-08 12:44] LABS: ALBUMIN 3.19 GM/DL (3.29-5.55); ALBUMIN % 48.4 % (55.8-66.1); ALPHA-1-GLOBULIN % 6.4 % (2.9-4.9); ALPHA-1-GLOBULINS 0.42 GM/DL (0.17-0.41); ALPHA-2-GLOBULINS 1.08 GM/DL (0.42-0.99); ALPHA-2-GLOBULINS % 16.4 % (7.1-11.8); BETA-1-GLOBULINS 0.44 GM/DL (0.28-0.60); BETA-1-GLOBULINS % 6.6 % (4.7-7.2); BETA-2-GLOBULINS 0.44 GM/DL (0.19-0.55); BETA-2-GLOBULINS % 6.7 % (3.2-6.5); GAMMA GLOBULIN % 15.5 % (11.1-18.8); GAMMA GLOBULINS 1.02 GM/DL (0.65-1.58)
[2018-04-10 15:57] LABS: UPEP INTERPRETATION NO M-SPIKE NOTED; URINE VOLUME RANDOM ML
== END ==
LOC: M LAB REF 13:04
PROVIDERS: ATTEND Internal Medicine Nephrology
DX: N18.3 Chronic kidney disease, stage 3 (moderate) (principal); D50.9 Iron deficiency anemia, unspecified

== ENCOUNTER → 2018-08-06 | Outpatient (REF) | payer MEDICARE, MEDICAID ==
[~2018-08-06] MED LIST changes: +AMIO200T22 PO; -AMIO20TA PO; +ASPI-1 PO; -ASPI1TAB PO; -ASPI325T PO; +ASPI81TA26 PO; -FURO40VL IV; +METO1TAB63 PO; -METO25TAB PO; +[UNRECOGNIZED DRUG - CODE] IV
[2018-08-06 14:19] LABS: BASO # 0.1 10^3/uL (0.0-0.2); BASO % 0.6 % (0.0-1.0); EOS # 0.6 10^3/uL (0.0-0.50); EOS % 5.5 % (0.0-3.0); HEMATOCRIT 36.2 % (42.0-52.0); HEMOGLOBIN 10.9 g/dl (13.5-17.5); LYMPH # 1.9 10^3/uL (1.5-4.5); MEAN CORPUSCULAR HEMOGLOBIN 28.3 pg (27.0-33.0); MEAN CORPUSCULAR HGB CONC 30.1 g/dl (32.0-36.5); MONO # 0.9 10^3/uL (0.0-0.8); MONO % 7.7 % (0.0-5.0); NEUTROPHILS # 7.7 10^3/uL (1.8-7.7); NEUTROPHILS % 68.7 % (36.0-66.0); PLATELET COUNT, AUTOMATED 320 10^3/uL (150-450); RED BLOOD COUNT 3.85 10^6/uL (4.30-6.10); WHITE BLOOD COUNT 11.3 10^3/uL (4.0-10.0)
[2018-08-06 14:45] LABS: ALBUMIN 3.1 GM/DL (3.2-5.2); BILIRUBIN,TOTAL 0.3 MG/DL (0.2-1.0); CALCIUM LEVEL 9.5 MG/DL (8.8-10.2); CHOLESTEROL RISK RATIO 2.543 (<5); CREATININE FOR GFR 2.19 MG/DL (0.70-1.30); GLOMERULAR FILTRATION RATE 31.8 (>42); POTASSIUM SERUM 4.9 MEQ/L (3.5-5.1); TOTAL PROTEIN 6.5 GM/DL (6.4-8.2)
[2018-08-06 14:48] LABS: HEMOGLOBIN A1c 7.2 %
[2018-08-06 14:50] LABS: TOTAL 25(OH) VITAMIN D 27.6 NG/ML (30.0-100.0)
== END ==
LOC: M SFHCSACK 11:01
PROVIDERS: ATTEND Physician Assistant
DX: D50.9 Iron deficiency anemia, unspecified (principal); E11.69 Type 2 diabetes mellitus with other specified complication; E55.9 Vitamin D deficiency, unspecified; Z12.5 Encounter for screening for malignant neoplasm of prostate
CPT/HCPCS: 36415; 80053; 80061; 82306; 83036; 85025; G0103

== ENCOUNTER → 2018-08-29 | Outpatient (REF) | payer MEDICARE ==
[~2018-08-29] MED LIST changes: +ALLO100T PO; +CALC1CAP31 PO; +CARV12.5 PO; +GABA-1171 PO; +ISOS30TA4 PO; +PANT40TA3 PO
[2018-08-29 14:11] LABS: APPEARANCE, URINE CLEAR (CLEAR); BACTERIA, URINE AUTO 1+ (NEGATIVE); BILIRUBIN, URINE AUTO NEGATIVE (NEGATIVE); BLOOD, URINE BLOOD 1+ (NEGATIVE); COLOR, URINE STRAW (YELLOW); GLUCOSE, URINE (UA) AUTO 1+ mg/dL (NEGATIVE); KETONE, URINE AUTO NEGATIVE (NEGATIVE); LEUKOCYTE ESTERASE, URINE AUTO NEGATIVE (NEGATIVE); NITRITE, URINE AUTO NEGATIVE (NEGATIVE); PROTEIN, URINE AUTO 2+ mg/dL (NEGATIVE); RBC, URINE AUTO 0 /HPF (0-3); SPECIFIC GRAVITY URINE AUTO 1.012 (1.002-1.035); SQUAMOUS EPITHELIAL CELL UR AU 0 /HPF (0-6); UROBILINOGEN, URINE AUTO 0.2 mg/dL (0.0-2.0); WBC, URINE AUTO 0 /HPF (0-3)
== END ==
LOC: M SMT 12:46
PROVIDERS: ATTEND Nurse Practitioner Women's Health
DX: R97.20 Elevated prostate specific antigen [PSA] (principal)
CPT/HCPCS: 81001; 87086; G0463

== ENCOUNTER → 2018-09-16 | Outpatient (CLI) | payer MEDICARE ==
[~2018-09-16] MED LIST changes: +HYDR50TA PO
--- NOTE | 2018-09-16 15:27 | REP ---
Prostate sonography: History: Elevated PSA. Sonographic findings: Trans rectal prostate sonography demonstrates unremarkable seminal vesicles. Prostate gland is heterogeneously enlarged with calcifications and cystic changes noted. Glandular dimensions are measured at 4.4 x 2.6 x 4.2 cm with a calculated glandular volume of 25.1 ml. Transrectal sonographic guidance is provided to Dr. Hazel who performed trans rectal ultrasound guided needle biopsy procedure . Electronically Signed by Yannick Harrison MD 09/16/2018 03:18 P
== END ==
LOC: M SMT PRO 09:06
PROVIDERS: ATTEND Urology
DX: C61 Malignant neoplasm of prostate (principal)
CPT/HCPCS: 55700; 76872; 76942; G0416

== ENCOUNTER 2018-09-22 14:08 | Inpatient (IN) | payer MEDICARE, MEDICAID ==
[~2018-09-22 14:08] MED LIST changes: -ALLO100T PO; -CALC1CAP31 PO; -CARV12.5 PO; -GABA-1171 PO; -HYDR50TA PO; -ISOS30TA4 PO; -PANT40TA3 PO; +SPIRONOLACTONE 25 MG TAB PO SCH
[2018-09-22] MEDS ORDERED: IPRATROPIUM 0.5MG/ALBUTEROL 2.5MG INH SOL UD 3ML (DUONEB)(J7620) NEB ONE (14:30)
[2018-09-22] MEDS ORDERED: dexameTHASONE 20 MG/5 ML VIAL (J1100) IV ONE (14:30)
[2018-09-22] MEDS ORDERED: ALBUTEROL SULFATE 2.5 MG/0.5 ML INH NEB SOLN INH ONE (14:30)
[2018-09-22 14:52] LABS: ABG BASE EXCESS -5.8 (-2.0-2.0); ABG HCO3 25.1 MEQ/L (22.0-26.0); ABG O2 SATURATION 98.4 % (95.0-99.0); ABG PARTIAL PRESSURE O2 142.5 mmHg (75.0-100.0); ABG STANDARD HCO3 19.8 MEQ/L (22.0-26.0); ABG TOTAL CO2 27.5 MEQ/L (23.0-31.0)
[2018-09-22 14:53] LABS: ABG PARTIAL PRESSURE CO2 77.7 mmHg (35.0-45.0); ABG pH (ARTERIAL) 7.127 UNITS (7.350-7.450)
--- NOTE | 2018-09-22 14:59 | REP ---
Clinical: Cough and dyspnea. Comparison: 05/06/2016. Findings: Cardiomegaly and pulmonary vascular congestion suggested along with right lower lobe infiltrate. No definite effusion. No pneumothorax. Skeletal structures intact. Evidence for prior sternotomy. Impression: Cardiomegaly with pulmonary vascular congestion and right lower lobe infiltrate. Electronically Signed by Jim Higginbotham MD 09/22/2018 02:51 P
[2018-09-22] MEDS ORDERED: NITROGLYCERIN 2% OINT 1 GM *U/D* PKT TOP ONE (15:00)
[2018-09-22] MEDS ORDERED: FUROSEMIDE 40 MG/4 ML VIAL (J1940) IV ONE (15:00)
[2018-09-22 16:00] LABS: BASO # 0.1 10^3/uL (0.0-0.2); BASO % 0.6 % (0.0-1.0); EOS % 0.2 % (0.0-3.0); HEMATOCRIT 46.1 % (42.0-52.0); HEMOGLOBIN 13.6 g/dl (13.5-17.5); LYMPH # 1.3 10^3/uL (1.5-4.5); LYMPH % 10.5 % (24.0-44.0); MEAN CORPUSCULAR HEMOGLOBIN 28.9 pg (27.0-33.0); MEAN CORPUSCULAR HGB CONC 29.5 g/dl (32.0-36.5); MEAN CORPUSCULAR VOLUME 97.9 fl (80.0-96.0); MONO # 0.9 10^3/uL (0.0-0.8); MONO % 6.8 % (0.0-5.0); NEUTROPHILS # 9.9 10^3/uL (1.8-7.7); NEUTROPHILS % 79.6 % (36.0-66.0); PLATELET COUNT, AUTOMATED 324 10^3/uL (150-450); RED BLOOD COUNT 4.71 10^6/uL (4.30-6.10); WHITE BLOOD COUNT 12.4 10^3/uL (4.0-10.0)
[2018-09-22 16:19] LABS: INR 1.2; PROTHROMBIN TIME 14.9 SECONDS (11.8-14.0)
[2018-09-22 16:21] LABS: D-DIMER QUANT 2868.58 ng/ml (<500)
[2018-09-22 16:28] LABS: ALBUMIN 3.2 GM/DL (3.2-5.2); BILIRUBIN,DIRECT 0.2 MG/DL (0.0-0.2); BILIRUBIN,TOTAL 0.4 MG/DL (0.2-1.0); CK-MB VALUE MASS 4.1 NG/ML (<3.6); CREATININE FOR GFR 4.83 MG/DL (0.70-1.30); GLOMERULAR FILTRATION RATE 12.8 (>42); MB/CK RELATIVE INDEX 4.66 (< OR =4); POTASSIUM SERUM 6.5 MEQ/L (3.5-5.1); THYROID STIMULATING HORMONE 5.23 uIU/ML (0.358-3.740); THYROXINE (T4) 3.9 UG/DL (4.5-12.0); TOTAL PROTEIN 7.5 GM/DL (6.4-8.2); TROPONIN I 0.24 NG/ML (< 0.10)
[2018-09-22 16:41] LABS: ABG BASE EXCESS -3.3 (-2.0-2.0); ABG HCO3 25.6 MEQ/L (22.0-26.0); ABG O2 SATURATION 98.7 % (95.0-99.0); ABG STANDARD HCO3 21.8 MEQ/L (22.0-26.0); ABG TOTAL CO2 27.5 MEQ/L (23.0-31.0)
[2018-09-22 16:42] LABS: ABG PARTIAL PRESSURE CO2 63.5 mmHg (35.0-45.0); ABG pH (ARTERIAL) 7.223 UNITS (7.350-7.450)
[2018-09-22] MEDS ORDERED: FERR325T16 PO (17:43)
[2018-09-22] MEDS ORDERED: CARV12.5 PO (17:43)
[2018-09-22] MEDS ORDERED: PANT40TA3 PO (17:43)
[2018-09-22] MEDS ORDERED: CALC1CAP31 PO (17:44)
[2018-09-22] MEDS ORDERED: ALLO100T PO (17:45)
[2018-09-22] MEDS ORDERED: ISOS30TA4 PO (17:46)
[2018-09-22] MEDS ORDERED: GABA-1171 PO (17:46)
--- NOTE | 2018-09-22 20:22 | HPEPDOC ---
[facility] Medical History & Physical Date of Admission Sep 22, 2018 Date of Service: Sep 22, 2018 History and Physical CHIEF COMPLAINT: referred from urology clinic due to respiratory distress HISTORY OF PRESENT ILLNESS: Pt is 68 y/o M with extensive cardiac Hx, CAD s/p CABG 2016 with ischemic cardiomyopathy EF 35% as per Echo in 2016, Hx of COPD, HTN, T2DM, CKD baseline Cr of 2 who was referred today from urology clinic due to respiratory distress. Pt was recently found out to have PSA 16 scheduled today to undergo TRUS biopsy of prostate. Upon my encounter in the ED pt is on BiPAP. He is AAOx3, no confusion or lethargy. Denies any chest pain dizziness or palpitations. Denies any headache, visual changes. Pt denies any recent sickness, fever or chills. ED course: Pt initial ABG was PH 7.1 Co2 77, placed on BiPAP 14/6, 40% with repeat ABG PH 7.22 Co2 63. CXR consistent with pulmonary congestion and lower lobe infiltrates. s/p Lasix 40mg IV. Cr elevated to 4 from 2 baseline. elevated SBP at 180. Walker Catheter was placed due to urinary retention. As per ED physician no significant urine output was drained. PAST MEDICAL HISTORY: As above PAST SURGICAL HISTORY: CABG 2016 SOCIAL HISTORY: Pt close friend at bedside he helps him for medical care and his appointments, denies smoking ETOH or illicit drug use FAMILY HISTORY: Pt on BiPAP, unable to obtain ALLERGIES: Please see below. REVIEW OF SYSTEMS: 10 point completed negative except above HOME MEDICATIONS: Please see below. PHYSICAL EXAMINATION: VITAL SIGNS: see below GENERAL APPEARANCE: pt is awake and alert on BiPAP, respond with head movements to questions, would not remove mask to increase time of pt receiving breathing support HEENT: ANASTASIA EOMI no icterus no JVD no erythema no discharge CARDIOVASCULAR: S1 S2 no murmur LUNGS: bilateral good air entry, scattered minimal wheezing no rales ABDOMEN: obese soft nontender not distended MUSCULOSKELETAL: no joint deformity, pt friend states he is undergoing hip injection for osteoarthritis EXTREMITIES: no cyanosis no edema no tenderness NEUROLOGICAL: motor sensory intact PSYCHIATRIC: mooed affect appropriate LABORATORY DATA: See below. IMAGING: Echo 2016 CONCLUSIONS: 1. Regional wall motion abnormalities with normal LV internal dimensions and wall thickness. Severe reduction overall LV systolic function. LVEF of 35% by visual estimated. The basal and mid antral septal segments were severely hypokinetic. The basal and mid inferoseptal segments and apical inferior segment and apical cap segment were moderately hypokinetic. Probably normal wall motion and wall thickening elsewhere with the exception of hypokinesis involving the basal and mid anterior segments. 2. Restrictive diastolic LV filling pattern (grade 3 or grade 4 diastolic dysfunction). 3. Mild mitral annular calcification. Very mild mitral regurgitation. 4. Normal estimate right ventricle systolic pressure and pulmonary artery systolic pressure. 5. Very small pericardial effusion. No diastolic chamber collapse. 6. Left pleural effusion. 7. Mild aortic valve sclerosis of a three-cuspid aortic valve. CXR in the ED Findings: Cardiomegaly and pulmonary vascular congestion suggested along with right lower lobe infiltrate. No definite effusion. No pneumothorax. Skeletal structures intact. Evidence for prior sternotomy. Impression: Cardiomegaly with pulmonary vascular congestion and right lower lobe infiltrate. MICROBIOLOGY: Please see below. A/P 1-Acute on chronic hypercapnic respiratory failure likely sec to COPD exacerbation sec to lower lobe pneumonia as well as pulmonary edema in view of volume overload due to systolic CHF exacerbation and CORBY on CKD ABG reviewed, Pt on BiPAP, repeat ABG improved Dr. Yadav from pulmonary consulted Albuterol/Ipratropium Neb q4hr Pt with no excessive wheezing no IV steroids at this point to avoid more derangement in volume status Ceftriaxone Azithromycin for atypicals Monitor O2 sat Repeat ABG after setting change on BiPAP 2-Acute Exacerbation of Systolic CHF , EF 35% in Echo 2016 Pt needs new Echo Strict I/O Lasix 80mg stat, cont 40mg BID Coreg, ASA, ACEI started 3-Ischemic Cardiomyopathy Hx of NSTEMI s/p CABG Cont ASA betablocker Statin ACEI added No anginal chest pain at this point 4-CORBY on CKD sec to likely obstructive uropathy as well as acute exacerbation of CHF possible cardiorenal syndrome monitor BMP Nephrology consult in AM Pt follows with dr Barlow outpt hyperkalemia K 6.5 not hemolyzed sample kayexalate given 5-Hypertensive Urgency Hydralazine home dose for now ACEI Coreg 6-T2DM FS q6hr NPO for now on BiPAP DVT Prophylaxis Heparin SC Vital Signs Vital Signs Date Time Temp Pulse Resp B/P (MAP) Pulse Ox O2 Delivery O2 Flow Rate FiO2 09/22/18 19:30 63 20 136/85 (102) 95 NIPPV (BIPAP/CPAP) 09/22/18 17:01 97.3 09/22/18 14:45 10.0 Laboratory Data Labs 24H Laboratory Tests 2 09/22/18 14:34: Blood Gas Bicarbonate Standard 19.8L, Arterial Blood pH 7.127*L, Arterial Blood Partial Pressure CO2 77.7*H, Arterial Blood Partial Pressure O2 142.5H, Arterial Blood Total CO2 27.5, Arterial Blood HCO3 25.1, Arterial Blood Base Excess -5. 8L, Arterial Blood Oxygen Saturation 98.4 09/22/18 15:28: Anion Gap 10, Glomerular Filtration Rate 12.8L, Calcium Level 9.0, Aspartate Amino Transf (AST/SGOT) 38H, Alanine Aminotransferase (ALT/SGPT) 50, Alkaline Phosphatase 330H, Total Bilirubin 0.4, Direct Bilirubin 0.2, Total Creatine Kinase 88, Creatine Kinase MB 4.1H, Creatine Kinase MB Relative Index 4.66H, Troponin I 0.24H, KV-Csw-R-Type Natriuretic Peptide 52857Q, Total Protein 7.5, Albumin 3.2, Albumin/Globulin Ratio 0.74L, Thyroid Stimulating Hormone (TSH) 5.230H, Thyroxine (T4) 3.9L 09/22/18 15:51: Immature Granulocyte % (Auto) 2.3, White Blood Count 12.4H, Red Blood Count 4.71, Hemoglobin 13.6, Hematocrit 46.1, Mean Corpuscular Volume 97.9H, Mean Corpuscular Hemoglobin 28.9, Mean Corpuscular Hemoglobin Concent 29.5L, Red Cell Distribution Width 17.3H, Platelet Count 324, Neutrophils (%) (Auto) 79.6H, Lymphocytes (%) (Auto) 10.5L, Monocytes (%) (Auto) 6.8H, Eosinophils (%) (Auto) 0.2, Basophils (%) (Auto) 0.6, Neutrophils # (Auto) 9.9H, Lymphocytes # (Auto) 1.3L, Monocytes # (Auto) 0.9H, Eosinophils # (Auto) 0.0, Basophils # (Auto) 0.1, Nucleated Red Blood Cells % (auto) 2.3H, Prothrombin Time 14.9H, Prothromb Time International Ratio 1.20, D-Dimer, Quantitative 2868.58H, Lactic Acid Level 1.0 09/22/18 16:21: Blood Gas Bicarbonate Standard 21.8L, Arterial Blood pH 7.223*L, Arterial Blood Partial Pressure CO2 63.5*H, Arterial Blood Partial Pressure O2 146.0H, Arterial Blood Total CO2 27.5, Arterial Blood HCO3 25.6, Arterial Blood Base Excess - 3.3L, Arterial Blood Oxygen Saturation 98.7 CBC/BMP Laboratory Tests 09/22/18 15:28 09/22/18 15:51 Red Blood Count 4.71, Mean Corpuscular Volume 97.9 H, Mean Corpuscular Hemoglobin 28.9, Mean Corpuscular Hemoglobin Concent 29.5 L, Red Cell Distribution Width 17.3 H, Neutrophils (%) (Auto) 79.6 H, Lymphocytes (%) (Auto) 10.5 L, Monocytes (%) (Auto) 6.8 H, Eosinophils (%) (Auto) 0.2, Basophils (%) (Auto) 0.6, Neutrophils # (Auto) 9.9 H, Lymphocytes # (Auto) 1.3 L, Monocytes # (Auto) 0.9 H, Eosinophils # (Auto) 0.0, Basophils # (Auto) 0.1 Microbiology Microbiology 09/22/18 Blood Culture, Received Pending 09/22/18 Blood Culture, Received Pending Home Medications Scheduled Allopurinol (Allopurinol) 100 Mg Tablet, 100 MG PO DAILY Ascorbic Acid (Ascorbic Acid) 500 Mg Tab, 500 MG PO DAILY Aspirin (Aspirin EC) 81 Mg Tabec, 81 MG PO DAILY Atorvastatin Calcium (Atorvastatin Calcium) 40 Mg Tab, 40 MG PO QHS Calcitriol (Calcitriol) 0.25 Mcg Capsule, 0.25 MCG PO 3XW SATURDAY, SATURDAY, SATURDAY Carvedilol (Carvedilol) 12.5 Mg Tablet, 12.5 MG PO BID Ferrous Gluconate (Ferrous Gluconate) 324 Mg Tablet, 324 MG PO DAILY Gabapentin (Gabapentin) 100 Mg Capsule, 100 MG PO TID PATIENT STATES THAT HIS DOCTOR TOLD HIM TO STOP THIS MEDICATION TODAY Hydralazine HCl (Hydralazine HCl) 25 Mg Tab, 25 MG PO TID Isosorbide Mononitrate (Isosorbide Mononitrate ER) 30 Mg Tab.er.24h, 30 MG PO DAILY Linagliptin (Tradjenta) 5 Mg Tab, 5 MG PO DAILY Pantoprazole Sodium (Pantoprazole Sodium) 40 Mg Tablet.dr, 40 MG PO DAILY Torsemide (Torsemide) 20 Mg Tab, 20 MG PO BID Allergies Coded Allergies: No Known Allergies (Unverified , 08/23/15) A-FIB/CHADSVASC A-FIB History Current/History of A-Fib/PAF?: No ADELE SHARIF MD Sep 22, 2018 20:22
[2018-09-22] MEDS ORDERED: MORPHINE 4 MG/ML 1ML VIAL/SYRINGE (J2270) IV PRN (20:30)
[2018-09-22] MEDS ORDERED: cefTRIAXone SOD 1 GM in D5W MINI-BAG PLUS 50 ML IV ONE (20:45)
[2018-09-22] MEDS ORDERED: AZITHROMYCIN INJ 500 MG, VIAL MATE ADAPTER 1 EACH in D5W 250 ML IV ONE (20:45)
[2018-09-22] MEDS ORDERED: CHLORHEXIDINE GLUCONATE 0.12 % 15ML UDC (PERIDEX ORAL RINSE) MT SCH (21:00)
[2018-09-22] MEDS ORDERED: SOD POLYSTYRENE SULFONATE SUSP 15 GM/60 ML UD PO ONE (22:00)
[2018-09-22] MEDS ORDERED: FUROSEMIDE 100 MG/10 ML VIAL (J1940) IV ONE ×2 (22:00→22:45)
--- NOTE | 2018-09-22 22:06 | ECGEPIP ---
[facility] - ED Test Date: 2018-09-22 Pat Name: CLIFFORD COSME Department: Room: - Gender: Male [employer]: : 1950 Requested By: SUYAPA Long Order Number: [id number] Reading MD: Gilmar Vega Measurements Intervals [place] Rate: 64 P: OR: -1 QRS: QRSD: 118 T: QT: 411 QTc: 424 Interpretive Statements SINUS RHYTHM WITH FIRST DEGREE AV BLOCK LEFT AXIS DEVIATION SEPTAL MYOCARDIAL INFARCTION, OF INDETERMINATE AGE MODERATE T-WAVE ABNORMALITY, CONSIDER INFERIOR ISCHEMIA Electronically Signed on 09-22-2018 22:06:30 EDT by Gilmar Vega
[2018-09-22] MEDS: CARVedilol 12.5 MG TAB PO SCH (22:15)
[2018-09-22 22:40] VITALS: BP 181/78
[2018-09-22] MEDS ORDERED: **hydrALAZINE HCL** 25 MG TAB PO SCH (22:45)
[2018-09-22] MEDS: IPRATROPIUM 0.5MG/ALBUTEROL 2.5MG INH SOL UD 3ML (DUONEB)(J7620) NEB SCH ×2 (22:49→23:46)
[2018-09-22] MEDS: ATORVASTATIN 20 MG TAB PO SCH (23:06)
[2018-09-22] MEDS: HEPARIN SOD (PORCINE) 5000 UNITS/ML VIAL SC SCH (23:06)
[2018-09-23] VITALS (15 sets, daily range): BP systolic 106–176; BP diastolic 53–74; O2SAT 91–93
[2018-09-23] LABS: CALCIUM LEVEL 8.5 MG/DL (8.8-10.2); CK-MB VALUE MASS 4.4 NG/ML (<3.6); CREATININE FOR GFR 4.31 MG/DL (0.70-1.30); GLOMERULAR FILTRATION RATE 14.6 (>42); MB/CK RELATIVE INDEX 3.08 (< OR =4); POTASSIUM SERUM 6.3 MEQ/L (3.5-5.1); TROPONIN I 0.4 NG/ML (< 0.10)
[2018-09-23 00:21] LABS: ABG BASE EXCESS -3.5 (-2.0-2.0); ABG HCO3 23.3 MEQ/L (22.0-26.0); ABG PARTIAL PRESSURE CO2 48.6 mmHg (35.0-45.0); ABG PARTIAL PRESSURE O2 79.2 mmHg (75.0-100.0); ABG STANDARD HCO3 21.5 MEQ/L (22.0-26.0); ABG TOTAL CO2 24.8 MEQ/L (23.0-31.0); ABG pH (ARTERIAL) 7.298 UNITS (7.350-7.450)
[2018-09-23] MEDS: IPRATROPIUM 0.5MG/ALBUTEROL 2.5MG INH SOL UD 3ML (DUONEB)(J7620) NEB SCH ×6 (04:09→23:42)
[2018-09-23 05:14] LABS: BASO % 0.2 % (0.0-1.0); HEMATOCRIT 40.9 % (42.0-52.0); HEMOGLOBIN 12.5 g/dl (13.5-17.5); LYMPH # 0.6 10^3/uL (1.5-4.5); LYMPH % 7.2 % (24.0-44.0); MEAN CORPUSCULAR HEMOGLOBIN 28.9 pg (27.0-33.0); MEAN CORPUSCULAR HGB CONC 30.6 g/dl (32.0-36.5); MEAN CORPUSCULAR VOLUME 94.7 fl (80.0-96.0); MONO # 0.2 10^3/uL (0.0-0.8); MONO % 2.2 % (0.0-5.0); NEUTROPHILS # 7.9 10^3/uL (1.8-7.7); NEUTROPHILS % 89.3 % (36.0-66.0); PLATELET COUNT, AUTOMATED 298 10^3/uL (150-450); RED BLOOD COUNT 4.32 10^6/uL (4.30-6.10); WHITE BLOOD COUNT 8.8 10^3/uL (4.0-10.0)
[2018-09-23 05:35] LABS: CALCIUM LEVEL 8.7 MG/DL (8.8-10.2); GLOMERULAR FILTRATION RATE 15.9 (>42); POTASSIUM SERUM 5.5 MEQ/L (3.5-5.1); TROPONIN I 0.42 NG/ML (< 0.10)
[2018-09-23 05:42] LABS: ABG BASE EXCESS -1.3 (-2.0-2.0); ABG HCO3 24.5 MEQ/L (22.0-26.0); ABG O2 SATURATION 94.2 % (95.0-99.0); ABG PARTIAL PRESSURE CO2 44.8 mmHg (35.0-45.0); ABG PARTIAL PRESSURE O2 76.8 mmHg (75.0-100.0); ABG STANDARD HCO3 23.3 MEQ/L (22.0-26.0); ABG TOTAL CO2 25.8 MEQ/L (23.0-31.0); ABG pH (ARTERIAL) 7.355 UNITS (7.350-7.450)
--- NOTE | 2018-09-23 05:52 | CR ---
DATE OF CONSULTATION: 09/22/2018 History was obtained from the chart and from other collateral information as patient is somewhat confused and unable to provide a good history. Mr. Bass is a 68-year-old male with a past medical history of hypertension, coronary artery disease, history of non-ST elevation myocardial infarction (N-STEMI) status post coronary artery bypass grafting (CABG) in 2016, diabetes, chronic kidney disease (CKD), diastolic congestive heart failure (CHF), former smoker, history of gastrointestinal (GI) bleed in the setting of anticoagulation who was sent here from the urology office after he had presented for followup after a prostate biopsy. In the office he was noted to have increased shortness of breath and appeared to be in some respiratory distress and he was transferred to the emergency room. In the emergency room the patient was tachypneic, was placed on a non-rebreather for hypoxia. He was also noted to be hypertensive with systolic blood pressures in the 190s-200s. The patient was given nitroglycerin ointment, as well as Lasix 40 mg intravenous (IV) in the emergency department (ED). He was also given DuoNeb treatment and dexamethasone 10 mg IV. The patient was placed on a BiPap for his respiratory distress and for his acute respiratory acidosis. With the BiPap he did appear to be more comfortable and his breathing had improved. He was noted to be somewhat lethargic and drowsy during all of this. The patient also received antibiotics with azithromycin and ceftriaxone and he was transferred to the intensive care unit (ICU) for further management. The patient in the ICU is on BiPap. He does have some tachypnea but he reports his breathing has improved. He denies any pain currently although he does have a history of some chronic pain, arthritis and gout. The patient denies any recent fevers or chills although he valerio note to be shivering or tremulous on exam. He denies any coughing. No chest pain currently. No nausea or vomiting. PAST MEDICAL HISTORY: 1. Hypertension. 2. Diabetes. 3. CAD status post CABG. 4. CKD. 5. Osteoarthritis. 6. Gout. 7. History of GI bleed. 8. Hyperlipidemia. 9. Diastolic congestive heart failure. PAST SURGICAL HISTORY: 1. CABG 2016. 2. Ganglion cyst removal. 3. Recent prostate biopsy. HOME MEDICATIONS: - allopurinol - ascorbic acid - aspirin - atorvastatin - calcitriol - carvedilol - ferrous gluconate - gabapentin - hydralazine - isosorbide mononitrate - Tradjenta - pantoprazole - torsemide 20 mg twice a day ALLERGIES: No known drug allergies. FAMILY HISTORY: Noncontributory. SOCIAL HISTORY: The patient is a former smoker 1ppd for many years, quit 3 yrs ago. PHYSICAL EXAMINATION: Vital signs: Temperature 97.3, pulse 64, blood pressure 167/70, O2 sat 94% on BiPap at 40%. The patient is net negative 1.1 liters since receiving the Lasix earlier in the afternoon. General: The patient is an obese male and is lying in the bed with some mild respiratory distress. He is tachypneic and appears confused but is oriented to person and place currently. HEENT: Normocephalic, atraumatic. Pupils are small but reactive to light. Mucous membranes are dry on BiPap. Neck: Supple, unable to appreciate jugular venous distention (JVD) due to body habitus. No palpable adenopathy. Cardiovascular: Regular rate and rhythm. Normal S1-S2. Unable to appreciate any murmurs. Pulmonary: Diminished breath sounds on the right base, some crackles noted more on the left. Abdomen: Soft, appears distended and there is some tenderness to palpation in the right lower quadrant. Extremities: There is no lower leg edema noted bilaterally. He has some tremors versus shivering in his extremities. LABORATORY DATA: WBC 12.4, hemoglobin 13.3, platelets 324. Chemistry: Sodium is 140, potassium 6.5, chloride is 105, bicarb 25, BUN 133, creatinine 4.83, glucose is 138, lactic acid 1.0, AST 38, ALT 50, alk phos 330, troponin elevated at 0.24. BNP 24,839, TSH is 5.230, free T4 is 2.9. Arterial blood gas (ABG) initially was pH of 7.127, pCO2 of 77.7, pO2 of 142.5. ABG after BiPap with the setting of 14/6 was 7.223, pCO2 of 63.5 and a pO2 of 146. IMAGING: Chest x-ray shows cardiomegaly and pulmonary vascular congestion bilaterally. There is also a right pleural effusion and right basilar opacity. ASSESSMENT/PLAN: Mr. Bass is a 68-year-old male with a past medical history of hypertension, diabetes, chronic kidney disease, coronary artery disease status post status coronary artery bypass grafting, congestive heart failure, hx GIB and gout who presents from the urology office with increased shortness of breath and respiratory distress. The patient was noted to be hypoxic on admission as well as tachypneic and significantly hypertensive. His chest x-ray showed evidence of pulmonary vascular congestion as well as a possible infiltrate in the right and likely right sided pleural effusion. His labs were significant for acute on chronic renal failure associated with hyperkalemia as well as some demand ischemia. The patient was also found to have acute hypercarbic respiratory failure likely secondary to pulmonary edema. The patient was also found to have evidence of hypothyroidism which he denies a previous history of. 1. Acute hypoxemic and hypercapnic respiratory failure likely secondary to pulmonary edema in the setting of worsening renal failure as well as hypertensive urgency. He was given Lasix 40 mg intravenous (IV) in the emergency department (ED) and did have appropriate diuresis. He was also placed on BiPap with some improvement in his hypercapnia. - Would continue with BiPap. Will adjust the settings to 16/8 and continue at 40% FIO2 with a backup respiratory rate of 8. Will follow with a repeat arterial blood gas (ABG) in 45 minutes. if there is no improvement in his ABG may require intubation at that time. - Would continue with diuresis. Will give an additional 60 mg IV push of Lasix and change his lasix to 60mh IV twice a day for a goal net negative of an additional 1.5 liters. -Continue monitoring his ins and outs. 2. Hyperkalemia is likely in the setting of his worsening renal failure. Would need to repeat to his electrolytes and the continue treatment as needed with Kayexalate and other reversal agents. The patient is significantly uremic and suspect he will have some metabolic encephalopathy secondary to the uremia. - Would consider a renal consult as he may require dialysis at some point if he has persistent hyperkalemia or worsening acidosis or inability to manage his fluid status 3. Hypertensive urgency is likely also in the setting of his worsening renal failure and fluid overload. Will continue with his home medications and he may need additional as needed hydralazine or labetalol for his hypertension. 4. Demand ischemia is likely in the setting of his fluid overload and hypertension with decompensated CHF. - Would continue to trend troponins would get a repeat echocardiogram. 5. Hypothyroidism- The patient's newly diagnosed hypothyroidism may have also contributed to some of his fluid overload. He will need to be started on Synthroid. 6. CAP- Continue with antibiotics for possible pneumonia with ceftriaxone and azithromycin for community acquired pneumonia. - Continue with DuoNebs every four hours. No evidence of wheezing currently and questionable history of chronic pulmonary obstructive disease (COPD). Would hold off on further steroids for now. - Would check a procalcitonin for a baseline and to help with trending for de- escalation. Deep venous thrombosis (DVT) prophylaxis. Heparin. FULL CODE. Total critical care time spent not including any procedures approximately 1 hour and 25 minutes. MTDD
[2018-09-23] MEDS: HEPARIN SOD (PORCINE) 5000 UNITS/ML VIAL SC SCH ×3 (06:14→22:39)
--- NOTE | 2018-09-23 08:25 | IPNPDOC ---
Subjective Date Seen The patient was seen on 09/23/18. Subjective Chief Complaint/HPI Feeling much better, no SOB, feels very thirsty. awake alert oriented x 2, knows he is in the hospital . Had good diuresis overnight. ABGs improved. Objective Physical Examination General Exam: Positive: Alert, Cooperative, No Acute Distress Eye Exam: Positive: Conjunctiva & lids normal, EOMI ENT Exam: Positive: Atraumatic, Mucous membr. moist/pink, Pharynx Normal Neck Exam: Positive: Supple; Negative: JVD, thyromegaly Chest Exam: Positive: Clear to auscultation, Diminished Heart Exam: Positive: Rate Normal, Regular Rhythm, Normal S1, Normal S2; Negative: Murmurs, Rubs Telemetry: Positive: No significant arrhythmia Abdomen Exam: Positive: Normal bowel sounds, Soft; Negative: Tenderness, Hepatospenomegaly Extremity Exam: Negative: Clubbing, Cyanosis, Edema Skin Exam: Positive: Nl turgor and temperature Assessment /Plan Assessment Pt is 68 y/o M with PMH ofCAD s/p CABG 2015 with ischemic cardiomyopathy EF 35% as per Echo in 2016, Systolic and diastolic CHF, Hx of COPD, HTN, T2DM, CKD baseline Cr of 2 who was referred today from urology clinic due to respiratory distress. Pt was recently found out to have PSA 16 scheduled today to undergo TRUS biopsy of prostate. Acute respiratory failure with hypoxia and hypercapnia Due to CHF exacerbation , Pneumonia and SANCHO not using CPAP at home. On Noninvasive ventilatory support BIPAP repeat ABG improved will give a break now , repeat ABG at [address] Yadav from pulmonary consulted Albuterol/Ipratropium Neb q4hr, received decadron in ED. Ceftriaxone and Azithromycin Check procalcitonin Acute Exacerbation of Systolic and diastolic CHF EF 35% in Echo 2016 Repeat Echo Strict I/O cont 80 mg bid Coreg, ASA, No ACEI or ARBS due to hyperkalemia. Morbid obesity and SANCHO Has CPAP at home but does not use it regularly CORBY on CKD with Hyperkalemia sec to likely obstructive uropathy as well as acute exacerbation of CHF possible cardiorenal syndrome Walker placed in ED. No ACEI or ARBS or NSAIDS, All meds as per GFR. Hypertensive Urgency Hydralazine, coreg High dose diuretics. T2DM FS q6hr carb consistent diet. Hyperlipidemia continue statin Hyperuricemia continue allopurinol Obesity complicating care Elevated PSA following with urology Plan/VTE VTE Prophylaxis Ordered?: Yes VS, I&O, 24H, Partha Vital Signs/I&O Vital Signs Date Time Temp Pulse Resp B/P (MAP) Pulse Ox O2 Delivery O2 Flow Rate FiO2 09/23/18 00:00 40 09/23/18 00:00 97.2 64 31 168/74 (105) 91 09/22/18 19:30 NIPPV (BIPAP/CPAP) 09/22/18 14:45 10.0 I&O- Last 24 Hours up to 6 AM 09/23/18 06:00 Intake Total 315 ml Output Total 1500 ml Balance -1185 ml Laboratory Data 24H LABS Laboratory Tests 2 09/22/18 14:34: Blood Gas Bicarbonate Standard 19.8L, Arterial Blood pH 7.127*L, Arterial Blood Partial Pressure CO2 77.7*H, Arterial Blood Partial Pressure O2 142.5H, Arterial Blood Total CO2 27.5, Arterial Blood HCO3 25.1, Arterial Blood Base Excess - 5.8L, Arterial Blood Oxygen Saturation 98.4 09/22/18 15:28: Anion Gap 10, Glomerular Filtration Rate 12.8L, Calcium Level 9.0, Aspartate Amino Transf (AST/SGOT) 38H, Alanine Aminotransferase (ALT/SGPT) 50, Alkaline Phosphatase 330H, Total Bilirubin 0.4, Direct Bilirubin 0.2, Total Creatine Kinase 88, Creatine Kinase MB 4.1H, Creatine Kinase MB Relative Index 4.66H, Troponin I 0.24H, HQ-Oni-S-Type Natriuretic Peptide [id number], Total Protein 7.5, Albumin 3.2, Albumin/Globulin Ratio 0.74L, Thyroid Stimulating Hormone (TSH) 5.2 30H, Thyroxine (T4) 3.9L 09/22/18 15:51: Immature Granulocyte % (Auto) 2.3, White Blood Count 12.4H, Red Blood Count 4.71, Hemoglobin 13.6, Hematocrit 46.1, Mean Corpuscular Volume 97.9H, Mean Corpuscular Hemoglobin 28.9, Mean Corpuscular Hemoglobin Concent 29.5L, Red Cell Distribution Width 17.3H, Platelet Count 324, Neutrophils (%) (Auto) 79.6H, Lymphocytes (%) (Auto) 10.5L, Monocytes (%) (Auto) 6.8H, Eosinophils (%) (Auto) 0.2, Basophils (%) (Auto) 0.6, Neutrophils # (Auto) 9.9H, Lymphocytes # (Auto) 1.3L, Monocytes # (Auto) 0.9H, Eosinophils # (Auto) 0.0, Basophils # (Auto) 0.1, Nucleated Red Blood Cells % (auto) 2.3H, Prothrombin Time 14.9H, Prothromb Time International Ratio 1.20, D-Dimer, Quantitative 2868.58H, Lactic Acid Level 1.0 09/22/18 16:21: Blood Gas Bicarbonate Standard 21.8L, Arterial Blood pH 7.223*L, Arterial Blood Partial Pressure CO2 63.5*H, Arterial Blood Partial Pressure O2 146.0H, Arterial Blood Total CO2 27.5, Arterial Blood HCO3 25.6, Arterial Blood Base Excess - 3.3L, Arterial Blood Oxygen Saturation 98.7 09/22/18 23:11: Anion Gap 9, Glomerular Filtration Rate 14.6L, Blood Urea Nitrogen 138H, Crea tinine 4.31H, Sodium Level 140, Potassium Level 6.3*H, Chloride Level 104, Carbon Dioxide Level 27, Calcium Level 8.5L, Total Creatine Kinase 143, Creatine Kinase MB 4.4H, Creatine Kinase MB Relative Index 3.08, Troponin I 0.40#H 09/23/18 00:15: Blood Gas Bicarbonate Standard 21.5L, Arterial Blood pH 7.298L, Arterial Blood Partial Pressure CO2 48.6H, Arterial Blood Partial Pressure O2 79.2, Arterial Blood Total CO2 24.8, Arterial Blood HCO3 23.3, Arterial Blood Base Excess -3 .5L, Arterial Blood Oxygen Saturation 94.0L CBC/BMP Laboratory Tests 09/22/18 15:28 09/22/18 15:51 Red Blood Count 4.71, Mean Corpuscular Volume 97.9 H, Mean Corpuscular Hemoglobi n 28.9, Mean Corpuscular Hemoglobin Concent 29.5 L, Red Cell Distribution Width 17.3 H, Neutrophils (%) (Auto) 79.6 H, Lymphocytes (%) (Auto) 10.5 L, Monocytes (%) (Auto) 6.8 H, Eosinophils (%) (Auto) 0.2, Basophils (%) (Auto) 0.6, Neutrophils # (Auto) 9.9 H, Lymphocytes # (Auto) 1.3 L, Monocytes # (Auto) 0.9 H, Eosinophils # (Auto) 0.0, Basophils # (Auto) 0.1 09/22/18 23:11 Calcium Level 8.5 L, Total Creatine Kinase 143 Microbiology Microbiology 09/22/18 Blood Culture, Received Pending 09/22/18 Blood Culture, Received Pending MIKE CRUZ MD Sep 23, 2018 01:04
[2018-09-23] MEDS ORDERED: SPIRONOLACTONE 25 MG TAB PO SCH (09:00)
[2018-09-23] MEDS ORDERED: FUROSEMIDE 100 MG/10 ML VIAL (J1940) IV SCH (09:00)
[2018-09-23] MEDS ORDERED: FUROSEMIDE 40 MG/4 ML VIAL (J1940) IV SCH (09:00)
[2018-09-23] MEDS ORDERED: ENALAPRIL MALEATE 5 MG TAB PO SCH (09:00)
[2018-09-23] MEDS ORDERED: ALLOPURINOL 100 MG TAB PO SCH (09:00)
[2018-09-23] MEDS: PANTOPRAZOLE 40MG INJ (PROTONIX) (C9113) IV SCH (09:23)
[2018-09-23] MEDS: ISOSORBIDE MON. (IMDUR) 30 MG XR TAB PO SCH (09:24)
[2018-09-23] MEDS: FUROSEMIDE 100 MG/10 ML VIAL (J1940) IV SCH ×2 (09:24→16:18)
[2018-09-23] MEDS: CARVedilol 12.5 MG TAB PO SCH ×2 (09:24→20:40)
[2018-09-23] MEDS: **hydrALAZINE** 50 MG TAB PO SCH ×3 (09:25→20:40)
[2018-09-23] MEDS: ASPIRIN 81 MG ENTERIC TAB PO SCH (09:25)
[2018-09-23 11:15] LABS: ABG BASE EXCESS 1.5 (-2.0-2.0); ABG HCO3 26.5 MEQ/L (22.0-26.0); ABG O2 SATURATION 94.7 % (95.0-99.0); ABG PARTIAL PRESSURE CO2 42.9 mmHg (35.0-45.0); ABG PARTIAL PRESSURE O2 75.5 mmHg (75.0-100.0); ABG SITE RT RADIAL; ABG STANDARD HCO3 25.8 MEQ/L (22.0-26.0); ABG TOTAL CO2 27.8 MEQ/L (23.0-31.0); ABG pH (ARTERIAL) 7.408 UNITS (7.350-7.450)
[2018-09-23] MEDS ORDERED: DEXTROSE 50% 50 ML SYRINGE IV PRN (12:15)
[2018-09-23] MEDS ORDERED: GLUCOSE 4 GM CHEW TABLET PO PRN (12:15)
[2018-09-23] MEDS ORDERED: GLUCAGON FOR INJ 1 MG VIAL (J1610) SC PRN (12:15)
[2018-09-23] MEDS: HumaLOG INSULIN (NovoLOG) PER UNIT SC SCH ×3 (12:31→20:39)
--- NOTE | 2018-09-23 12:40 | CCN ---
DATE: 09/23/2018 The patient is seen and examined this morning during bedside rounds. He was continued on BiPap overnight. His repeat ABG showed improvement in his respiratory acidosis. This morning, his mental status improved and his breathing has improved and he was taken off of BiPap to nasal cannula oxygen. This morning, the patient is much more alert and oriented. He is answering questions appropriately. He reports his shortness of breath has improved. He denies any chest pains and has not had any abdominal pain. No nausea or vomiting. He denies any fevers or chills currently. The patient does report some cough productive of some scant mucus. PHYSICAL EXAMINATION: Temperature 97.8, pulse 69, respirations 24, blood pressure 145/65, O2 sat was 92% on 40% FiO2. Ins 60 mL and out 1.5 liters. General: The patient is an obese male who is sitting in bed with no acute respiratory distress. He is not using any accessory muscles of respiration currently. He is awake, awake, alert and oriented x3. HEENT: Normocephalic, atraumatic. Pupils are small, reactive to light. Mucous membranes are moist. Neck is supple. Unable to appreciate jugular venous distention (JVD) due to body habitus. No palpable adenopathy. Cardiovascular: Regular rate and rhythm. Normal S1 and S2. Unable to appreciate any murmurs. Pulmonary: With decreased breath sounds on the right base and some crackles noted bilaterally. Abdomen is soft, obese and nontender to palpation. Extremities: There is no significant lower extremity edema noted bilaterally. LABORATORY DATA: WBC 8.8, hemoglobin 12.5 and platelets are 298. Chemistry: Sodium is 142, potassium 5.5, chloride 106, bicarb 26, BUN 138, creatinine is 4.0, glucose is 166. Troponins had trended up slightly to 0.42. ABG this morning on BiPap: pH 7.355, pCO2 of 44.8 and pO2 of 76.8. ASSESSMENT/PLAN: Mr. Bass is a 68-year-old male with a history of hypertension, diabetes, chronic kidney disease (CKD), coronary artery disease (CAD) status post coronary artery bypass graft (CABG), congestive heart failure (CHF) and gout who presented from the urology office with increased shortness of breath and respiratory distress. The patient presented with acute hypoxemic and hypercapnic respiratory failure. He was also found to be hypertensive and with evidence of fluid overload likely secondary to his acute on chronic renal failure and decompensated CHF. The patient also had an infiltrate in the right side and likely right- sided pleural effusion on imaging. He was started on antibiotics for possible pneumonia. 1. Acute hypoxemic and hypercapnic respiratory failure likely secondary to pulmonary edema in the setting of worsening renal failure, hypertensive urgency and decompensated CHF. - The patient had diuresis with Lasix which was increased to 60 mg twice a day. Would continue with Lasix and monitor his ins and outs and adjust accordingly. - The patient was started on BiPap with some adjustment in his settings with improvement in his ABG. His acute hypercapnic respiratory failure has improved now with diuresis and BiPap. - Will take the patient off of the BiPap and repeat an ABG during the day off BiPap. - Discussed with the patient and his family that he may have a component of obstructive sleep apnea, however, this is chronic and his respiratory acidosis appears acute at this time and not chronic. Therefore, suspect his acidosis will improve with continued diuresis and that he can followup as an outpatient for sleep study testing for evaluation for possible obstructive sleep apnea (SANCHO). - During the morning when patient was sleeping on nasal cannula oxygen he was noted to be desaturating. Was placed on CPAP then for likely SANCHO and adjusted his settings to 12cm H2O with 3L O2 bleed. - Continue with nasal cannula oxygen supplementation and wean down as tolerated. 2. Hyperkalemia The patient's hyperkalemia is likely in the setting of his worsening renal failure. His hyperkalemia is currently improving and he does not have any significant acidosis. He is also making urine so there is no urgent indication for hemodialysis at this time. His creatinine is improving slightly, however, his BUN is still elevated. 3. Hypertensive urgency- some of it which is likely in the setting of his fluid overload and worsening renal failure, is improving. -Continue medications for hypertension as per primary team. - patient had positive troponins on admission, likely has a component of demand ischemia in the setting of his decompensated CHF and fluid overload. - will check ECHO 4. Possible PNA- patient had opacity on CXR in right base with likely pleural effusion. He denied significant cough, was afebrile, had mild leukocytosis. He was started on antibiotics with ceftriaxone and azithromycin for possible CAP. - will check sputum culture and procalcitonin - Continue with DuoNebs every 4 hours. Deep vein thrombosis (DVT) prophylaxis. Heparin. Full code. Total critical care time spent, not including any procedures approximately 40 minutes. MTDD
[2018-09-23] MEDS: AZITHROMYCIN 250 MG TAB PO SCH (20:41)
[2018-09-23] MEDS: ATORVASTATIN 20 MG TAB PO SCH (20:41)
[2018-09-24] VITALS (15 sets, daily range): BP systolic 117–150; BP diastolic 60–88; O2SAT 91–95
[2018-09-24] MEDS: IPRATROPIUM 0.5MG/ALBUTEROL 2.5MG INH SOL UD 3ML (DUONEB)(J7620) NEB SCH ×5 (03:58→19:59)
[2018-09-24 05:49] LABS: ABG BASE EXCESS 1.9 (-2.0-2.0); ABG HCO3 28.4 MEQ/L (22.0-26.0); ABG O2 SATURATION 94.2 % (95.0-99.0); ABG PARTIAL PRESSURE CO2 53.4 mmHg (35.0-45.0); ABG PARTIAL PRESSURE O2 74.7 mmHg (75.0-100.0); ABG STANDARD HCO3 26.1 MEQ/L (22.0-26.0); ABG TOTAL CO2 30.1 MEQ/L (23.0-31.0); ABG pH (ARTERIAL) 7.344 UNITS (7.350-7.450)
[2018-09-24] MEDS: HEPARIN SOD (PORCINE) 5000 UNITS/ML VIAL SC SCH ×3 (06:18→21:25)
[2018-09-24 07:09] LABS: BASO % 0.2 % (0.0-1.0); EOS % 0.2 % (0.0-3.0); HEMATOCRIT 38.2 % (42.0-52.0); HEMOGLOBIN 11.5 g/dl (13.5-17.5); LYMPH # 1.2 10^3/uL (1.5-4.5); LYMPH % 11.1 % (24.0-44.0); MEAN CORPUSCULAR HGB CONC 30.1 g/dl (32.0-36.5); MEAN CORPUSCULAR VOLUME 96.2 fl (80.0-96.0); MONO # 1.2 10^3/uL (0.0-0.8); MONO % 10.4 % (0.0-5.0); NEUTROPHILS # 8.7 10^3/uL (1.8-7.7); NEUTROPHILS % 77.4 % (36.0-66.0); PLATELET COUNT, AUTOMATED 262 10^3/uL (150-450); RED BLOOD COUNT 3.97 10^6/uL (4.30-6.10); WHITE BLOOD COUNT 11.2 10^3/uL (4.0-10.0)
[2018-09-24 07:24] LABS: CALCIUM LEVEL 8.1 MG/DL (8.8-10.2); CREATININE FOR GFR 3.4 MG/DL (0.70-1.30); GLOMERULAR FILTRATION RATE 19.2 (>42); POTASSIUM SERUM 4.8 MEQ/L (3.5-5.1)
[2018-09-24] MEDS: HumaLOG INSULIN (NovoLOG) PER UNIT SC SCH ×4 (08:21→21:00)
[2018-09-24] MEDS: **hydrALAZINE** 50 MG TAB PO SCH ×3 (09:00→21:00)
[2018-09-24] MEDS: PANTOPRAZOLE 40MG INJ (PROTONIX) (C9113) IV SCH (09:16)
[2018-09-24] MEDS: FUROSEMIDE 100 MG/10 ML VIAL (J1940) IV SCH ×2 (09:18→17:38)
[2018-09-24] MEDS: CARVedilol 12.5 MG TAB PO SCH ×2 (09:18→21:25)
[2018-09-24] MEDS: ASPIRIN 81 MG ENTERIC TAB PO SCH (09:18)
[2018-09-24] MEDS: ISOSORBIDE MON. (IMDUR) 30 MG XR TAB PO SCH (09:18)
--- NOTE | 2018-09-24 10:43 | REP ---
Clinical: CHF versus infiltrate. Technique: PA and lateral. Comparison: 09/22/2018. Findings: Mediastinum and cardiac silhouette are stable. Bibasilar infiltrates with possible pleural effusion may be slightly increased from prior examination. No pneumothorax. Skeletal structures intact. Impression: Mildly increased bibasilar infiltrates/opacities with pleural effusion. Differential diagnosis includes CHF and multifocal pneumonia. Electronically Signed by Jim Higginbotham MD 09/24/2018 10:35 A
--- NOTE | 2018-09-24 13:34 | CCN ---
DATE: 09/24/2018 The patient was seen and examined this morning during bedside rounds. Yesterday, the patient was weaned off of BiPap to nasal cannula oxygen supplementation. With the nasal cannula oxygen, however, when he was sleeping the patient was noted to desaturate into the 70s and have periods of what appeared like apneic episodes. He was therefore started on C-PAP with settings adjusted to 12 cm of water with a 3 liter per minute O2 bleed for possible obstructive sleep apnea. The patient was on C-PAP overnight which he tolerated well without any significant desaturations. This morning, the patient reports that his breathing has continued to improve. He denies any significant coughing. He has no increased shortness of breath. No chest pains. No abdominal pain. No nausea or vomiting. PHYSICAL EXAMINATION: Temperature 97.2, pulse 66, respirations 22, blood pressure 158/63, O2 sat 93% on C-PAP. Ins 1.3 liters and out 2.1 liters, net negative 810 mL. General: The patient is an obese male who is lying in bed in no acute respiratory distress. He is awake, alert and oriented x3. He is not using any accessory muscles for respiration. HEENT: Normocephalic, atraumatic. Pupils are small, reactive to light. Mucous membranes are moist. Neck is supple. Unable to appreciate jugular venous distention (JVD) due to body habitus. Cardiovascular: Regular rate and rhythm. Normal S1 and S2. Unable to appreciate any murmurs. Pulmonary: Decreased breath sounds bilaterally with some scant crackles. On the right there is a coarse inspiratory wheeze. Abdomen is soft, obese, nontender to palpation. Extremities: There is no significant lower extremity edema noted bilaterally. LABORATORY DATA: WBC 11.2, hemoglobin 11.5, platelets 262. Chemistry: Sodium is 144, potassium is 4.8, chloride is 108, bicarb is 30, BUN 130, creatinine is 3.4, glucose is 176. Procalcitonin 0.29. ABG: pH 7.344, pCO2 of 53.4 and pO2 of 74.7. Microbiology: Blood cultures have been negative. Chest x-ray this morning compared to previous x-ray. There is some improvement in the previously more dense and opaque infiltrate in the right base. The right costophrenic angle also appears clear now and there is likely some improvement in the effusion there. There is likely a trace effusion still on the left side and there is some evidence of atelectasis bilaterally in the lower lobes and some mild pulmonary vascular congestion bilaterally. ASSESSMENT/PLAN: Mr. Bass is a 68-year-old male with history of hypertension, diabetes, chronic kidney disease (CKD), coronary artery disease (CAD) status post coronary artery bypass graft (CABG), congestive heart failure (CHF) and gout who presented initially with increased shortness of breath and respiratory distress. The patient had acute hypoxemic and hypercapnic respiratory failure likely secondary to CHF exacerbation as well as acute on chronic renal failure. The patient also had a right-sided infiltrate on admission and he was started on antibiotics for possible community-acquired pneumonia. 1. Acute hypoxemic and hypercapnic respiratory failure likely secondary to pulmonary edema in the setting of CHF and worsening renal failure. - The patient has been diuresing with Lasix, however, has only been net negative 800 mL in the past 24 hours. Will likely need further increases in his diuretics. - The patient was initially on BiPap for his acute hypercapnic respiratory failure. He was weaned off to nasal cannula oxygen supplementation and his ABGs were acceptable. - The patient was noted to have episodes of desaturation and apnea when sleeping and given his body habitus there is high suspicion for obstructive sleep apnea (SANCHO). Therefore, he was started on C-PAP empirically with some adjusted settings to 12 cm of water and 3 liters per minute O2 bleed. The patient tolerated C-PAP the overnight. His ABG this morning does show some slightly increased pCO2, but he is still compensating. I suspect there is some component of metabolic alkalosis as well. - Continue with C-PAP q.h.s. He has nasal cannula oxygen supplementation during the day and wean down as tolerated. - The patient will need followup as an outpatient for sleep testing and for pulmonary followup. 2. Possible pneumonia and history of possible chronic obstructive pulmonary disease (COPD). The patient is a former smoker. He was one pack a day for 40 years and quit 3 years ago. He denies being on other inhalers at home except for possible a rescue nebulizer which he has not been using. He had some isolated inspiratory wheeze today, more on the right side than on the left. - Would continue with DuoNebs every 4 hours. He will need followup as an outpatient for pulmonary function testing given his history. He will also need screening CTs for lung cancer given his smoking history. - The patient had an initial chest x-ray which showed an opacity in the right base that was likely pleural effusion and atelectasis. Repeat chest x-ray this morning shows improvement in that dense opacity of the right side and some improvement in the pleural effusion there. He does have atelectasis and pulmonary vascular congestion. I suspect most of his imaging findings were secondary to his heart failure but would need follow-up for resolution. - The patient has been afebrile. He only had mild leukocytosis on admission. He was started on ceftriaxone and azithromycin for possible community acquired pneumonia. His procalcitonin was 0.29. Therefore, would likely de-escalate his antibiotics to azithromycin to complete a 5-day course as pneumonia is less likely. 3. Acute on chronic renal failure likely secondary to CHF and cardiorenal syndrome. His creatinine is improving with diuresis. He is still significantly uremic however and suspect that is contributing to some of his confusion with metabolic encephalopathy. His hyperkalemia has been improving however and he does not have any significant acidosis and there is no urgent indication for hemodialysis at this time. - Will continue to monitor his renal function and electrolytes. - Renally dose medications. 4. Hypertensive urgency likely in the setting of his fluid overload and worsening renal failure, which is improving. Continue medications for hypertension as per primary team. The patient did have elevated troponins likely secondary to demand ischemia from his hypertensive urgency and decompensated CHF. - would check an echo and followup results. Deep vein thrombosis (DVT) prophylaxis. Heparin. Full code. Total critical care time spent, not including procedures, approximately 40 minutes. Please do not hesitate to call if any further questions or concerns. The patient can followup with pulmonary as an outpatient upon discharge for sleep testing and pulmonary function tests. TANA
--- NOTE | 2018-09-24 14:02 | IPNPDOC ---
Subjective Date Seen The patient was seen on 09/24/18. Subjective Chief Complaint/HPI Patient feels much better today. Though he is still a little confused. He coplains of restless legs at night and says he has to sit up at the side of th bed for this. He becomes hypoxic to 70s when asleep which is alleviated with CPAP of about 12 with 3 litr oxygen bleed in. No fever or chills. No cough or phlegm. Objective Physical Examination General Exam: Positive: Alert, Cooperative, No Acute Distress Eye Exam: Positive: Conjunctiva & lids normal, EOMI ENT Exam: Positive: Atraumatic, Mucous membr. moist/pink, Pharynx Normal Neck Exam: Positive: Supple; Negative: JVD, thyromegaly Chest Exam: Positive: Normal air movement, Diminished Heart Exam: Positive: Rate Normal, Regular Rhythm, Normal S1, Normal S2; Negative: Murmurs, Rubs Telemetry: Positive: No significant arrhythmia Abdomen Exam: Positive: Normal bowel sounds, Soft; Negative: Tenderness, Hepatospenomegaly Extremity Exam: Negative: Clubbing, Cyanosis, Edema Skin Exam: Positive: Nl turgor and temperature Assessment /Plan Assessment Pt is 68 y/o M with PMH ofCAD s/p CABG 2016 with ischemic cardiomyopathy EF 35% as per Echo in 2016, Systolic and diastolic CHF, Hx of COPD, HTN, T2DM, CKD baseline Cr of 2 to 2.5, Landis esophagus, who was referred today from urology clinic due to respiratory distress. Pt was recently found out to have PSA 16 scheduled today to undergo TRUS biopsy of prostate. Acute respiratory failure with hypoxia and hypercapnia Due to CHF exacerbation , Pneumonia and underlying SANCHO Was on BIPAP now transitioned to CPAP. Albuterol/Ipratropium Neb q4hr, received decadron 1 dose in ED. continue Azithromycin Acute Exacerbation of Systolic and diastolic CHF EF 35% in Echo 2016 Repeat Echo Strict I/O cont 80 mg bid Coreg, ASA, No ACEI or ARBS due to hyperkalemia. Metabolic encephalopathy on admission due to hypercarbia and hypoxia improving. Morbid obesity possible SANCHO continue with CPAP in hospital will need sleep study and follow up with pulmonary as outpatient. CORBY on CKD with Hyperkalemia sec to likely obstructive uropathy as well as acute exacerbation of CHF possible cardiorenal syndrome No ACEI or ARBS or NSAIDS, All meds as per GFR. Elevated BUN disproportionate in nature to his creatinine. could be due to Decadron. Rule out GIB. Could be that this is lagging behind the creatinine. stool occult blood Hypertensive Urgency resolved. Hydralazine, coreg High dose diuretics. T2DM carb consistent diet. Lispro as per sliding scale Hyperlipidemia continue statin Hyperuricemia continue allopurinol Obesity complicating care Elevated PSA following with urology Plan/VTE VTE Prophylaxis Ordered?: Yes VS, I&O, 24H, Fishbone Vital Signs/I&O Vital Signs Date Time Temp Pulse Resp B/P (MAP) Pulse Ox O2 Delivery O2 Flow Rate FiO2 09/24/18 12:00 97.5 70 22 145/65 (91) 92 4.0 09/24/18 11:36 Nasal Cannula 09/23/18 08:00 40 I&O- Last 24 Hours up to 6 AM 09/24/18 06:00 Intake Total 1260 ml Output Total 2155 ml Balance -895 ml Laboratory Data 24H LABS Laboratory Tests 2 09/23/18 16:48: Bedside Glucose (Misc Panel) 193H 09/23/18 20:37: Bedside Glucose (Misc Panel) 215H 09/24/18 05:30: Blood Gas Bicarbonate Standard 26.1H, Arterial Blood pH 7.344L, Arterial Blood Partial Pressure CO2 53.4H, Arterial Blood Partial Pressure O2 74.7L, Arterial Blood Total CO2 30.1, Arterial Blood HCO3 28.4H, Arterial Blood Base Excess 1.9, Arterial Blood Oxygen Saturation 94.2L 09/24/18 06:46: Immature Granulocyte % (Auto) 0.7, White Blood Count 11.2H, Red Blood Count 3.97L, Hemoglobin 11.5L, Hematocrit 38.2L, Mean Corpuscular Volume 96.2H, Mean Corpuscular Hemoglobin 29.0, Mean Corpuscular Hemoglobin Concent 30.1L, Red Cell Distribution Width 17.7H, Platelet Count 262, Neutrophils (%) (Auto) 77.4H, Lymphocytes (%) (Auto) 11.1L, Monocytes (%) (Auto) 10.4H, Eosinophils (%) (Auto) 0.2, Basophils (%) (Auto) 0.2, Neutrophils # (Auto) 8.7H, Lymphocytes # (Auto) 1.2L, Monocytes # (Auto) 1.2H, Eosinophils # (Auto) 0.0, Basophils # (Auto) 0.0, Nucleated Red Blood Cells % (auto) 0.3H, Anion Gap 6L, Glomerular Filtration Rate 19.2L, Blood Urea Nitrogen 130H, Creatinine 3.40H, Sodium Level 144, Potassium Level 4.8, Chloride Level 108H, Carbon Dioxide Level 30, Calcium Level 8.1L 09/24/18 12:00: Bedside Glucose (Misc Panel) 226H CBC/BMP Laboratory Tests 09/24/18 06:46 Red Blood Count 3.97 L, Mean Corpuscular Volume 96.2 H, Mean Corpuscular Hemoglobin 29.0, Mean Corpuscular Hemoglobin Concent 30.1 L, Red Cell Distribution Width 17.7 H, Neutrophils (%) (Auto) 77.4 H, Lymphocytes (%) (Auto) 11.1 L, Monocytes (%) (Auto) 10.4 H, Eosinophils (%) (Auto) 0.2, Basophils (%) (Auto) 0.2, Neutrophils # (Auto) 8.7 H, Lymphocytes # (Auto) 1.2 L, Monocytes # (Auto) 1.2 H, Eosinophils # (Auto) 0.0, Basophils # (Auto) 0.0, Calcium Level 8 .1 L Microbiology Microbiology 09/22/18 Blood Culture - Preliminary, Resulted No growth after 24 hours . All specim... 09/22/18 Blood Culture - Preliminary, Resulted No growth after 24 hours . All specim... MIKE CRUZ MD Sep 24, 2018 12:58
[2018-09-24] MEDS ORDERED: SLF 3 ML SYR IV PRN (14:15)
--- NOTE | 2018-09-24 17:27 | ECHO ---
DATE OF PROCEDURE: 09/23/2018 AGE: 68 GENDER: Male HEIGHT: 66 inches WEIGHT: 251 pounds BODY SURFACE AREA: 2.2 m2 PATIENT LOCATION: Inpatient, ICU, room 3204 REFERRING PHYSICIAN: Marleny Yadav MD INDICATION: Heart failure. 2-D MEASUREMENTS: RV: 4.6 cm Right ventricular free wall thickness: 1.0 cm LV: 5.2 cm Septum: 1.2 cm Posterior wall: 1.2 cm Aortic root: 3.4 cm LA: 4.0 cm LVEF: 75% DOPPLER MEASUREMENTS: AV: off angle and not possible to correct LVOT: off angle and unable to correct LVOT diameter: 2.1 cm MV-E: 65, A: 50, EA ratio: 1.3 Early mitral deceleration time: 239 ms E prime: 6.7, A prime: 9.1, E/E prime ratio: 9.7 PCWP: 10.6 mmHg PV: 0.75 m/s Pulmonary artery acceleration time: 100 ms RVSP: 45 mmHg IVC: 2.5 cm COMMENTS: Normal sinus rhythm with first-degree AV block and incomplete left bundle branch block (LBBB). Technically difficult study in light of the patient's body habitus, but diagnostically useful information was still obtained. M-mode and two-dimensional echocardiography was performed with pulsed, continuous wave, color flow and tissue Doppler studies. Borderline concentric left ventricle hypertrophy with hyperkinetic wall motion. Mildly dilated left atrium with impairment of left ventricle (LV) diastolic function but current estimated mean left atrial pressure upper limits of normal. At least mild to moderately dilated right heart chambers with at least mild right ventricular hypertrophy and somewhat reduced right ventricular free wall motion with Doppler evidence of at least moderate pulmonary hypertension. Moderately dilated IVC with virtually absent respiratory collapse in keeping with elevated central venous pressure - right heart failure. Three equal size aortic cusps that were moderately thickened without functional abnormality. Moderate mitral annular calcification without functional abnormality. Normal appearing tricuspid valve with at least mild - moderate insufficiency. No apparent intracardiac mass or pericardial effusion.
[2018-09-24] MEDS: ATORVASTATIN 20 MG TAB PO SCH (21:25)
[2018-09-24] MEDS: AZITHROMYCIN 250 MG TAB PO SCH (21:25)
[2018-09-24] MEDS: SLF 3 ML SYR IV SCH (21:26)
[2018-09-25] MEDS: IPRATROPIUM 0.5MG/ALBUTEROL 2.5MG INH SOL UD 3ML (DUONEB)(J7620) NEB SCH ×7 (00:03→23:31)
[2018-09-25] MEDS: SLF 3 ML SYR IV SCH ×3 (05:55→21:16)
[2018-09-25] MEDS: HEPARIN SOD (PORCINE) 5000 UNITS/ML VIAL SC SCH ×3 (05:55→21:15)
[2018-09-25 06:25] LABS: ABG O2 SATURATION 92.7 % (95.0-99.0); ABG PARTIAL PRESSURE CO2 58.7 mmHg (35.0-45.0); ABG PARTIAL PRESSURE O2 69.2 mmHg (75.0-100.0); ABG STANDARD HCO3 28.9 MEQ/L (22.0-26.0); ABG TOTAL CO2 33.8 MEQ/L (23.0-31.0); ABG pH (ARTERIAL) 7.354 UNITS (7.350-7.450)
[2018-09-25 07:04] LABS: BASO % 0.1 % (0.0-1.0); EOS # 0.3 10^3/uL (0.0-0.50); EOS % 2.2 % (0.0-3.0); HEMATOCRIT 40.9 % (42.0-52.0); LYMPH % 16.3 % (24.0-44.0); MEAN CORPUSCULAR HEMOGLOBIN 28.8 pg (27.0-33.0); MEAN CORPUSCULAR HGB CONC 29.3 g/dl (32.0-36.5); MEAN CORPUSCULAR VOLUME 98.3 fl (80.0-96.0); MONO # 1.2 10^3/uL (0.0-0.8); MONO % 9.5 % (0.0-5.0); NEUTROPHILS # 8.6 10^3/uL (1.8-7.7); NEUTROPHILS % 71.3 % (36.0-66.0); PLATELET COUNT, AUTOMATED 250 10^3/uL (150-450); RED BLOOD COUNT 4.16 10^6/uL (4.30-6.10); WHITE BLOOD COUNT 12.1 10^3/uL (4.0-10.0)
[2018-09-25 07:24] LABS: CREATININE FOR GFR 2.53 MG/DL (0.70-1.30); GLOMERULAR FILTRATION RATE 26.9 (>42); POTASSIUM SERUM 4.7 MEQ/L (3.5-5.1)
[2018-09-25] MEDS: FUROSEMIDE 100 MG/10 ML VIAL (J1940) IV SCH ×2 (08:05→17:12)
[2018-09-25] MEDS: PANTOPRAZOLE 40MG INJ (PROTONIX) (C9113) IV SCH (08:05)
[2018-09-25] MEDS: CARVedilol 12.5 MG TAB PO SCH ×2 (08:06→21:16)
[2018-09-25] MEDS: ISOSORBIDE MON. (IMDUR) 30 MG XR TAB PO SCH (08:06)
[2018-09-25] MEDS: ASPIRIN 81 MG ENTERIC TAB PO SCH (08:06)
[2018-09-25] MEDS: **hydrALAZINE** 50 MG TAB PO SCH ×3 (08:07→21:00)
[2018-09-25] MEDS: HumaLOG INSULIN (NovoLOG) PER UNIT SC SCH ×4 (08:08→21:00)
--- NOTE | 2018-09-25 10:05 | IPNPDOC ---
Subjective Date Seen The patient was seen on 09/25/18. Subjective Chief Complaint/HPI Complaining of cough this morning but says that the breathing is better. Says did not have any rouble with urination prior to coming to the hospital, No fever or chills, no chest pain or sob. Objective Physical Examination General Exam: Positive: Alert, Cooperative, No Acute Distress Eye Exam: Positive: Conjunctiva & lids normal, EOMI ENT Exam: Positive: Atraumatic, Mucous membr. moist/pink, Pharynx Normal Neck Exam: Positive: Supple; Negative: JVD, thyromegaly Chest Exam: Positive: Normal air movement, Diminished Heart Exam: Positive: Rate Normal, Regular Rhythm, Normal S1, Normal S2; Negative: Murmurs, Rubs Telemetry: Positive: No significant arrhythmia Abdomen Exam: Positive: Normal bowel sounds, Soft; Negative: Tenderness, Hepatospenomegaly Extremity Exam: Negative: Clubbing, Cyanosis, Edema Skin Exam: Positive: Nl turgor and temperature Assessment /Plan Assessment Pt is 68 y/o M with PMH of CAD s/p CABG 2016 with ischemic cardiomyopathy EF 35% as per Echo in 2016, Systolic and diastolic CHF, Hx of COPD, HTN, T2DM, CKD baseline Cr of 2 to 2.5, Landis esophagus, who was referred today from urology clinic due to respiratory distress.Gilberto had gone there to know about the prostate Biopsy results Acute respiratory failure with hypoxia and hypercapnia Due to CHF exacerbation ,and underlying untreated SANCHO Was on BIPAP now transitioned to CPAP. Albuterol/Ipratropium Neb q4hr, received Decadron 1 dose in ED. Possible Pneumonia infiltrates in the CXR infective vs fluids. though procalcitonin in normal continue Azithromycin Acute Exacerbation of Systolic and diastolic CHF EF 35% in Echo 2016 Repeat Echo Strict I/O cont 80 mg bid Coreg, ASA, No ACEI or ARBS due to hyperkalemia. Metabolic encephalopathy on admission due to hypercarbia and hypoxia improved Morbid obesity with SANCHO continue with CPAP in hospital will need sleep study and follow up with pulmonary as outpatient. CORBY on CKD with Hyperkalemia sec to likely obstructive uropathy as well as acute exacerbation of CHF possible cardiorenal syndrome No ACEI or ARBS or NSAIDS, All meds as per GFR. Elevated BUN now started to improve. disproportionate in nature to his creatinine. could be due to Decadron. Rule out GIB. Could be that this is lagging behind the creatinine. stool occult blood Hypertensive Urgency resolved. Hydralazine, coreg High dose diuretics. T2DM carb consistent diet. Lispro as per sliding scale Hyperlipidemia continue statin Hyperuricemia continue allopurinol Obesity complicating care Elevated PSA following with urology Plan/VTE VTE Prophylaxis Ordered?: Yes VS, I&O, 24H, [facility] Vital Signs/I&O Vital Signs Date Time Temp Pulse Resp B/P (MAP) Pulse Ox O2 Delivery O2 Flow Rate FiO2 09/25/18 08:07 123/84 09/25/18 08:06 71 09/24/18 22:00 97.9 18 95 4.0 09/24/18 14:00 BIPAP/CPAP 09/23/18 08:00 40 I&O- Last 24 Hours up to 6 AM 09/25/18 06:00 Intake Total 1660 ml Output Total 3975 ml Balance -2315 ml Laboratory Data 24H LABS Laboratory Tests 2 09/24/18 12:00: Bedside Glucose (Misc Panel) 226H 09/24/18 16:41: Bedside Glucose (Misc Panel) 157H 09/24/18 20:58: Bedside Glucose (Misc Panel) 212H 09/25/18 05:50: Blood Gas Bicarbonate Standard 28.9H, Arterial Blood pH 7.354, Arterial Blood Partial Pressure CO2 58.7H, Arterial Blood Partial Pressure O2 69.2L, Arterial Blood Total CO2 33.8H, Arterial Blood HCO3 32.0H, Arterial Blood Base Excess 5.0H, Arterial Blood Oxygen Saturation 92.7L 09/25/18 06:33: Immature Granulocyte % (Auto) 0.6, White Blood Count 12.1H, Red Blood Count 4.16L, Hemoglobin 12.0L, Hematocrit 40.9L, Mean Corpuscular Volume 98.3H, Mean Corpuscular Hemoglobin 28.8, Mean Corpuscular Hemoglobin Concent 29.3L, Red Cell Distribution Width 17.6H, Platelet Count 250, Neutrophils (%) (Auto) 71.3H, Lymphocytes (%) (Auto) 16.3L, Monocytes (%) (Auto) 9.5H, Eosinophils (%) (Auto) 2.2, Basophils (%) (Auto) 0.1, Neutrophils # (Auto) 8.6H, Lymphocytes # (Auto) 2.0, Monocytes # (Auto) 1.2H, Eosinophils # (Auto) 0.3, Basophils # (Auto) 0.0, Nucleated Red Blood Cells % (auto) 0.2H, Anion Gap 6L, Glomerular Filtration Rate 26.9L, Blood Urea Nitrogen 122H, Creatinine 2.53H, Sodium Level 146H, Potassium Level 4.7, Chloride Level 107, Carbon Dioxide Level 33H, Calcium Level 8.0L CBC/BMP Laboratory Tests 09/25/18 06:33 Red Blood Count 4.16 L, Mean Corpuscular Volume 98.3 H, Mean Corpuscular Hemoglobin 28.8, Mean Corpuscular Hemoglobin Concent 29.3 L, Red Cell Distribution Width 17.6 H, Neutrophils (%) (Auto) 71.3 H, Lymphocytes (%) (Auto) 16.3 L, Monocytes (%) (Auto) 9.5 H, Eosinophils (%) (Auto) 2.2, Basophils (%) (Auto) 0.1, Neutrophils # (Auto) 8.6 H, Lymphocytes # (Auto) 2.0, Monocytes # (Auto) 1.2 H, Eosinophils # (Auto) 0.3, Basophils # (Auto) 0.0, Calcium Level 8. 0 L Microbiology Microbiology 09/22/18 Blood Culture - Preliminary, Resulted No Growth after 48 hours. All Specime... 09/22/18 Blood Culture - Preliminary, Resulted No Growth after 48 hours. All Specime... MIKE CRUZ MD Sep 25, 2018 10:05
[2018-09-25 14:00] VITALS: BP 125/80
[2018-09-25] MEDS: AZITHROMYCIN 250 MG TAB PO SCH (21:15)
[2018-09-25] MEDS: ATORVASTATIN 20 MG TAB PO SCH (21:16)
[2018-09-25 22:00] VITALS: BP 140/75
[2018-09-26] MEDS: IPRATROPIUM 0.5MG/ALBUTEROL 2.5MG INH SOL UD 3ML (DUONEB)(J7620) NEB SCH ×5 (03:29→20:42)
[2018-09-26] MEDS: HEPARIN SOD (PORCINE) 5000 UNITS/ML VIAL SC SCH ×3 (05:54→21:44)
[2018-09-26] MEDS: SLF 3 ML SYR IV SCH ×3 (05:54→21:44)
[2018-09-26 06:00] VITALS: BP 115/52
[2018-09-26 06:25] LABS: BASO % 0.2 % (0.0-1.0); EOS # 0.4 10^3/uL (0.0-0.50); EOS % 3.4 % (0.0-3.0); HEMATOCRIT 41.4 % (42.0-52.0); LYMPH # 1.6 10^3/uL (1.5-4.5); MEAN CORPUSCULAR HEMOGLOBIN 27.9 pg (27.0-33.0); MEAN CORPUSCULAR VOLUME 96.3 fl (80.0-96.0); MONO # 1.1 10^3/uL (0.0-0.8); MONO % 8.8 % (0.0-5.0); NEUTROPHILS # 8.9 10^3/uL (1.8-7.7); PLATELET COUNT, AUTOMATED 267 10^3/uL (150-450)
[2018-09-26 06:52] LABS: CALCIUM LEVEL 8.4 MG/DL (8.8-10.2); CREATININE FOR GFR 2.31 MG/DL (0.70-1.30); GLOMERULAR FILTRATION RATE 29.9 (>42); POTASSIUM SERUM 4.5 MEQ/L (3.5-5.1)
[2018-09-26] MEDS: ASPIRIN 81 MG ENTERIC TAB PO SCH (08:08)
[2018-09-26] MEDS: ISOSORBIDE MON. (IMDUR) 30 MG XR TAB PO SCH (08:08)
[2018-09-26] MEDS: PANTOPRAZOLE 40MG TAB (PROTONIX) PO SCH (08:08)
[2018-09-26] MEDS: CARVedilol 12.5 MG TAB PO SCH ×2 (08:08→21:43)
[2018-09-26] MEDS: **hydrALAZINE** 50 MG TAB PO SCH ×3 (08:09→21:00)
[2018-09-26] MEDS: HumaLOG INSULIN (NovoLOG) PER UNIT SC SCH ×4 (08:09→21:00)
[2018-09-26] MEDS ORDERED: FUROSEMIDE 100 MG/10 ML VIAL (J1940) IV SCH (09:00)
[2018-09-26 14:00] VITALS: BP 117/50
--- NOTE | 2018-09-26 21:09 | IPNPDOC ---
Subjective Date Seen The patient was seen on 09/26/18. Subjective Chief Complaint/HPI Feels better every day . Though says is very weak and shaky in his legs. His breathing and cough has much improved. He is trying to follow the fluid restrictions. Objective Physical Examination General Exam: Positive: Alert, Cooperative, No Acute Distress Eye Exam: Positive: Conjunctiva & lids normal, EOMI ENT Exam: Positive: Atraumatic, Mucous membr. moist/pink, Pharynx Normal Neck Exam: Positive: Supple; Negative: JVD, thyromegaly Chest Exam: Positive: Normal air movement, Diminished Heart Exam: Positive: Rate Normal, Regular Rhythm, Normal S1, Normal S2; Negative: Murmurs, Rubs Telemetry: Positive: No significant arrhythmia Abdomen Exam: Positive: Normal bowel sounds, Soft; Negative: Tenderness, Hepatospenomegaly Extremity Exam: Negative: Clubbing, Cyanosis, Edema Skin Exam: Positive: Nl turgor and temperature Assessment /Plan Assessment Pt is 68 y/o M with PMH of CAD s/p CABG 2016 with ischemic cardiomyopathy EF 35% as per Echo in 2016, Systolic and diastolic CHF, Hx of COPD, HTN, T2DM, CKD baseline Cr of 2 to 2.5, Landis esophagus, who was referred today from urology clinic due to respiratory distress. Patient had gone there to know about the prostate Biopsy results Acute respiratory failure with hypoxia and hypercapnia Due to CHF exacerbation ,and underlying untreated SANCHO Was on BIPAP now transitioned to CPAP. Albuterol/Ipratropium Neb q4hr Will need home oxygen Possible Pneumonia infiltrates in the CXR infective vs fluids. though procalcitonin in normal continue Azithromycin Morbid obesity with SANCHO and pulmonary hypertension and corpulmonale. continue with CPAP in hospital will need sleep study and follow up with pulmonary as outpatient. Moderate pulmonary hypertension with corpulmonate continue lasix. fluid restriction Acute Exacerbation of diastolic CHF and acute on chronic right heart failure EF 35% in Echo 2016 which seems to have improved. Current echo shows an EF of 75% Echo this admission Borderline concentric left ventricle hypertrophy with hyperkinetic wall motion. Mildly dilated left atrium with impairment of left ventricle (LV) diastolic function but current estimated mean left atrial pres sure upper limits of normal. At least mild to moderately dilated right heart chambers with at least mild right ventricular hypertrophy and somewhat reduced right ventricular free wall motion with Doppler evidence of at least moderate pulmonary hypertension RVSP 45. Moderately dilated IVC with virtually absent respiratory collapse in keeping with elevated central venous pressure - right heart failure. Three equal size aortic cusps that were moderately thickened without functional abnormality. Moderate mitral annular calcification without functional abnormality. Normal appearing tricuspid valve with at least mild - moderate insufficiency Strict I/O cont 80 mg bid Coreg, ASA, No ACEI or ARBS due to recent hyperkalemia. Metabolic encephalopathy on admission due to hypercarbia and hypoxia improved CORBY on CKD with Hyperkalemia continues to improve with diuresis. sec to likely obstructive uropathy as well as acute exacerbation of CHF possible cardiorenal syndrome No ACEI or ARBS or NSAIDS, All meds as per GFR. Elevated BUN now started to improve. disproportionate in nature to his creatinine. this is lagging behind the creatinine. Now seems to be improving. stool occult blood Hypertensive Urgency resolved. Hydralazine, coreg High dose diuretics. T2DM carb consistent diet. Lispro as per sliding scale Hyperlipidemia continue statin Hyperuricemia continue allopurinol Obesity complicating care Elevated PSA following with urology Plan/VTE VTE Prophylaxis Ordered?: Yes VS, I&O, 24H, [facility] Vital Signs/I&O Vital Signs Date Time Temp Pulse Resp B/P (MAP) Pulse Ox O2 Delivery O2 Flow Rate FiO2 09/26/18 15:00 117/50 09/26/18 14:00 98.3 81 20 92 3.0 09/25/18 20:08 Nasal Cannula 09/23/18 08:00 40 I&O- Last 24 Hours up to 6 AM 09/26/18 06:00 Intake Total 1720 ml Output Total 2580 ml Balance -860 ml Laboratory Data 24H LABS Laboratory Tests 2 09/26/18 05:41: Immature Granulocyte % (Auto) 0.6, White Blood Count 12.0H, Red Blood Count 4.30, Hemoglobin 12.0L, Hematocrit 41.4L, Mean Corpuscular Volume 96.3H, Mean Corpuscular Hemoglobin 27.9, Mean Corpuscular Hemoglobin Concent 29.0L, Red Cell Distribution Width 17.6H, Platelet Count 267, Neutrophils (%) (Auto) 74.0H, Lymphocytes (%) (Auto) 13.0L, Monocytes (%) (Auto) 8.8H, Eosinophils (%) (Auto) 3.4H, Basophils (%) (Auto) 0.2, Neutrophils # (Auto) 8.9H, Lymphocytes # (Auto) 1.6, Monocytes # (Auto) 1.1H, Eosinophils # (Auto) 0.4, Basophils # (Auto) 0.0, Nucleated Red Blood Cells % (auto) 0.3H, Anion Gap 5L, Glomerular Filtration Rate 29.9L, Blood Urea Nitrogen 110H, Creatinine 2.31H, Sodium Level 146H, Potassium Level 4.5, Chloride Level 107, Carbon Dioxide Level 34H, Calcium Level 8.4L 09/26/18 11:55: Bedside Glucose (Misc Panel) 214H 09/26/18 16:54: Bedside Glucose (Misc Panel) 163H 09/26/18 20:40: Bedside Glucose (Misc Panel) 161H CBC/BMP Laboratory Tests 09/26/18 05:41 Red Blood Count 4.30, Mean Corpuscular Volume 96.3 H, Mean Corpuscular Hemoglobin 27.9, Mean Corpuscular Hemoglobin Concent 29.0 L, Red Cell Distribution Width 17.6 H, Neutrophils (%) (Auto) 74.0 H, Lymphocytes (%) (Auto) 13.0 L, Monocytes (%) (Auto) 8.8 H, Eosinophils (%) (Auto) 3.4 H, Basophils (%) (Auto) 0.2, Neutrophils # (Auto) 8.9 H, Lymphocytes # (Auto) 1.6, Monocytes # (Auto) 1.1 H, Eosinophils # (Auto) 0.4, Basophils # (Auto) 0.0, Calcium Level 8.4 L Microbiology Microbiology 09/22/18 Blood Culture - Preliminary, Resulted No Growth after 72 hours. All specime... 09/22/18 Blood Culture - Preliminary, Resulted No Growth after 72 hours. All specime... MIKE CRUZ MD Sep 26, 2018 21:09
[2018-09-26] MEDS: ATORVASTATIN 20 MG TAB PO SCH (21:43)
[2018-09-26] MEDS: AZITHROMYCIN 250 MG TAB PO SCH (21:43)
[2018-09-26 22:00] VITALS: BP 124/43
[2018-09-26] MEDS: FUROSEMIDE 100 MG/10 ML VIAL (J1940) IV SCH (22:19)
[2018-09-27] MEDS: IPRATROPIUM 0.5MG/ALBUTEROL 2.5MG INH SOL UD 3ML (DUONEB)(J7620) NEB SCH ×7 (02:33→22:58)
[2018-09-27 06:00] VITALS: BP 109/61
[2018-09-27 06:16] LABS: BASO % 0.2 % (0.0-1.0); EOS # 0.4 10^3/uL (0.0-0.50); EOS % 3.3 % (0.0-3.0); HEMATOCRIT 38.3 % (42.0-52.0); HEMOGLOBIN 11.2 g/dl (13.5-17.5); LYMPH # 1.2 10^3/uL (1.5-4.5); LYMPH % 11.3 % (24.0-44.0); MEAN CORPUSCULAR HEMOGLOBIN 28.8 pg (27.0-33.0); MEAN CORPUSCULAR HGB CONC 29.2 g/dl (32.0-36.5); MEAN CORPUSCULAR VOLUME 98.5 fl (80.0-96.0); MONO # 1.2 10^3/uL (0.0-0.8); MONO % 11.7 % (0.0-5.0); NEUTROPHILS # 7.7 10^3/uL (1.8-7.7); NEUTROPHILS % 72.9 % (36.0-66.0); PLATELET COUNT, AUTOMATED 191 10^3/uL (150-450); RED BLOOD COUNT 3.89 10^6/uL (4.30-6.10); WHITE BLOOD COUNT 10.5 10^3/uL (4.0-10.0)
[2018-09-27] MEDS: HEPARIN SOD (PORCINE) 5000 UNITS/ML VIAL SC SCH ×3 (06:27→21:12)
[2018-09-27] MEDS: SLF 3 ML SYR IV SCH ×3 (06:27→21:13)
[2018-09-27 06:37] LABS: CALCIUM LEVEL 7.8 MG/DL (8.8-10.2); GLOMERULAR FILTRATION RATE 35.3 (>42); POTASSIUM SERUM 4.4 MEQ/L (3.5-5.1)
--- NOTE | 2018-09-27 07:52 | IPNPDOC ---
Subjective Date Seen The patient was seen on 09/27/18. Subjective Chief Complaint/HPI No complaints today, His cough and SOB much improved, He has been ambulating to the bathroom independently. He is still requiring 2 to 3 liters of oxygen. will need home oxygen Objective Physical Examination General Exam: Positive: Alert, Cooperative, No Acute Distress Eye Exam: Positive: Conjunctiva & lids normal, EOMI ENT Exam: Positive: Atraumatic, Mucous membr. moist/pink, Pharynx Normal Neck Exam: Positive: Supple; Negative: JVD, thyromegaly Chest Exam: Positive: Normal air movement, Diminished Heart Exam: Positive: Rate Normal, Regular Rhythm, Normal S1, Normal S2; Negative: Murmurs, Rubs Telemetry: Positive: No significant arrhythmia Abdomen Exam: Positive: Normal bowel sounds, Soft; Negative: Tenderness, Hepatospenomegaly Extremity Exam: Negative: Clubbing, Cyanosis, Edema Skin Exam: Positive: Nl turgor and temperature Assessment /Plan Assessment Pt is 68 y/o M with PMH of CAD s/p CABG 2015 with ischemic cardiomyopathy EF 35% as per Echo in 2016, Systolic and diastolic CHF, Hx of COPD, HTN, T2DM, CKD baseline Cr of 2 to 2.5, Landis esophagus, who was referred today from urology clinic due to respiratory distress. Patient had gone there to know about the prostate Biopsy results Acute respiratory failure with hypoxia and hypercapnia Due to CHF exacerbation ,and underlying untreated SANCHO Was on BIPAP now transitioned to CPAP. Albuterol/Ipratropium Neb q4hr Will need home oxygen Possible Pneumonia infiltrates in the CXR infective vs fluids. though procalcitonin in normal continue Azithromycin Morbid obesity with SANCHO and pulmonary hypertension and corpulmonale. continue with CPAP in hospital will need sleep study and follow up with pulmonary as outpatient. Moderate pulmonary hypertension with corpulmonate continue lasix. fluid restriction Acute Exacerbation of diastolic CHF and acute on chronic right heart failure EF 35% in Echo 2016 which seems to have improved. Current echo shows an EF of 75% Echo this admission Borderline concentric left ventricle hypertrophy with hyperkinetic wall motion. Mildly dilated left atrium with impairment of left ventricle (LV) diastolic function but current estimated mean left atrial pressure upper limits of normal. At least mild to moderately dilated right heart chambers with at least mild right ventricular hypertrophy and somewhat reduced right ventricular free wall motion with Doppler evidence of at least moderate pulmonary hypertension RVSP 45. Moderately dilated IVC with virtually absent respiratory collapse in keeping with elevated central venous pressure - right heart failure. Three equal size aortic cusps that were moderately thickened without functional abnormality. Moderate mitral annular calcification without functional abnormality. Normal appearing tricuspid valve with at least mild - moderate insufficiency Strict I/O cont 80 mg bid Coreg, ASA, No ACEI or ARBS due to recent hyperkalemia. Metabolic encephalopathy on admission due to hypercarbia and hypoxia improved CORBY on CKD with Hyperkalemia continues to improve with diuresis. sec to likely obstructive uropathy as well as acute exacerbation of CHF possible cardiorenal syndrome No ACEI or ARBS or NSAIDS, All meds as per GFR. Elevated BUN now started to improve. disproportionate in nature to his creatinine. this is lagging behind the creatinine. Now seems to be improving. stool occult blood Hypertensive Urgency resolved. Hydralazine, coreg High dose diuretics. T2DM carb consistent diet. Lispro as per sliding scale Hyperlipidemia continue statin Hyperuricemia continue allopurinol Obesity complicating care Elevated PSA following with urology Plan/VTE VTE Prophylaxis Ordered?: Yes VS, I&O, 24H, [facility] Vital Signs/I&O Vital Signs Date Time Temp Pulse Resp B/P (MAP) Pulse Ox O2 Delivery O2 Flow Rate FiO2 09/27/18 07:12 Nasal Cannula 3.0 09/27/18 06:00 98.0 67 20 109/61 (77) 93 09/23/18 08:00 40 I&O- Last 24 Hours up to 6 AM 09/27/18 05:59 Intake Total 1056 ml Output Total 1350 ml Balance -294 ml Laboratory Data 24H LABS Laboratory Tests 2 09/26/18 11:55: Bedside Glucose (Misc Panel) 214H 09/26/18 16:54: Bedside Glucose (Misc Panel) 163H 09/26/18 20:40: Bedside Glucose (Misc Panel) 161H 09/27/18 05:49: Immature Granulocyte % (Auto) 0.6, White Blood Count 10.5H, Red Blood Count 3.89L, Hemoglobin 11.2L, Hematocrit 38.3L, Mean Corpuscular Volume 98.5H, Mean Corpuscular Hemoglobin 28.8, Mean Corpuscular Hemoglobin Concent 29.2L, Red Cell Distribution Width 17.2H, Platelet Count 191, Neutrophils (%) (Auto) 72.9H, Lymphocytes (%) (Auto) 11.3L, Monocytes (%) (Auto) 11.7H, Eosinophils (%) (Auto) 3.3H, Basophils (%) (Auto) 0.2, Neutrophils # (Auto) 7.7, Lymphocytes # (Auto) 1.2L, Monocytes # (Auto) 1.2H, Eosinophils # (Auto) 0.4, Basophils # (Auto) 0.0, Nucleated Red Blood Cells % (auto) 0.0, Anion Gap 5L, Glomerular Filtration Rate 35.3L, Blood Urea Nitrogen 113H, Creatinine 2.00H, Sodium Level 144, Potassium Level 4.4, Chloride Level 107, Carbon Dioxide Level 32, Calcium Level 7.8L CBC/BMP Laboratory Tests 09/27/18 05:49 Red Blood Count 3.89 L, Mean Corpuscular Volume 98.5 H, Mean Corpuscular Hemoglobin 28.8, Mean Corpuscular Hemoglobin Concent 29.2 L, Red Cell Distribution Width 17.2 H, Neutrophils (%) (Auto) 72.9 H, Lymphocytes (%) (Auto) 11.3 L, Monocytes (%) (Auto) 11.7 H, Eosinophils (%) (Auto) 3.3 H, Basophils (%) (Auto) 0.2, Neutrophils # (Auto) 7.7, Lymphocytes # (Auto) 1.2 L, Monocytes # (Auto) 1.2 H, Eosinophils # (Auto) 0.4, Basophils # (Auto) 0.0, Calcium Level 7.8 L Microbiology Microbiology 09/22/18 Blood Culture - Preliminary, Resulted No Growth after 72 hours. All specime... 09/22/18 Blood Culture - Preliminary, Resulted No Growth after 72 hours. All specime... MIKE CRUZ MD Sep 27, 2018 07:52
[2018-09-27] MEDS: CARVedilol 12.5 MG TAB PO SCH ×2 (08:29→21:12)
[2018-09-27] MEDS: FUROSEMIDE 100 MG/10 ML VIAL (J1940) IV SCH ×2 (08:29→17:51)
[2018-09-27] MEDS: PANTOPRAZOLE 40MG TAB (PROTONIX) PO SCH (08:29)
[2018-09-27] MEDS: **hydrALAZINE** 50 MG TAB PO SCH ×3 (08:29→21:00)
[2018-09-27] MEDS: ISOSORBIDE MON. (IMDUR) 30 MG XR TAB PO SCH (08:29)
[2018-09-27] MEDS: ASPIRIN 81 MG ENTERIC TAB PO SCH (08:29)
[2018-09-27] MEDS: HumaLOG INSULIN (NovoLOG) PER UNIT SC SCH ×4 (08:30→21:00)
[2018-09-27 14:00] VITALS: BP 112/64
[2018-09-27] MEDS: ATORVASTATIN 20 MG TAB PO SCH (21:12)
[2018-09-27] MEDS: AZITHROMYCIN 250 MG TAB PO SCH (21:12)
[2018-09-27 22:00] VITALS: BP 118/61
[2018-09-28] MEDS: IPRATROPIUM 0.5MG/ALBUTEROL 2.5MG INH SOL UD 3ML (DUONEB)(J7620) NEB SCH ×3 (02:49→12:00)
[2018-09-28 06:00] VITALS: BP 116/54
[2018-09-28] MEDS: SLF 3 ML SYR IV SCH (06:33)
[2018-09-28] MEDS: HEPARIN SOD (PORCINE) 5000 UNITS/ML VIAL SC SCH (06:33)
[2018-09-28 07:12] LABS: BASO % 0.2 % (0.0-1.0); EOS # 0.3 10^3/uL (0.0-0.50); HEMATOCRIT 36.4 % (42.0-52.0); HEMOGLOBIN 10.5 g/dl (13.5-17.5); LYMPH # 1.4 10^3/uL (1.5-4.5); LYMPH % 14.2 % (24.0-44.0); MEAN CORPUSCULAR HEMOGLOBIN 28.7 pg (27.0-33.0); MEAN CORPUSCULAR HGB CONC 28.8 g/dl (32.0-36.5); MEAN CORPUSCULAR VOLUME 99.5 fl (80.0-96.0); MONO % 9.7 % (0.0-5.0); NEUTROPHILS # 7.1 10^3/uL (1.8-7.7); NEUTROPHILS % 72.6 % (36.0-66.0); PLATELET COUNT, AUTOMATED 193 10^3/uL (150-450); RED BLOOD COUNT 3.66 10^6/uL (4.30-6.10); WHITE BLOOD COUNT 9.9 10^3/uL (4.0-10.0)
[2018-09-28 07:42] LABS: CREATININE FOR GFR 2.2 MG/DL (0.70-1.30); GLOMERULAR FILTRATION RATE 31.7 (>42); POTASSIUM SERUM 4.5 MEQ/L (3.5-5.1)
[2018-09-28] MEDS ORDERED: TORS20TA2 PO (07:50)
[2018-09-28] MEDS ORDERED: HYDR50TA PO (07:50)
[2018-09-28] MEDS: ASPIRIN 81 MG ENTERIC TAB PO SCH (08:56)
[2018-09-28] MEDS: FUROSEMIDE 100 MG/10 ML VIAL (J1940) IV SCH (08:56)
[2018-09-28] MEDS: PANTOPRAZOLE 40MG TAB (PROTONIX) PO SCH (08:56)
[2018-09-28 08:57] VITALS: BP 116/54
[2018-09-28] MEDS: CARVedilol 12.5 MG TAB PO SCH (08:57)
[2018-09-28] MEDS: ISOSORBIDE MON. (IMDUR) 30 MG XR TAB PO SCH (08:57)
[2018-09-28] MEDS: **hydrALAZINE** 50 MG TAB PO SCH (08:57)
[2018-09-28] MEDS: HumaLOG INSULIN (NovoLOG) PER UNIT SC SCH (08:58)
--- NOTE | 2018-09-29 11:08 | DS.PDOC ---
Discharge Summary General Date of Admission Sep 22, 2018 at 20:18 Date of Discharge 09/29/18 Discharge Summary PROCEDURES PERFORMED DURING STAY: [None]. ADMITTING DIAGNOSES: 1. . DISCHARGE DIAGNOSES: 1. . COMPLICATIONS/CHIEF COMPLAINT: Acute Hypercapnic Respiratory Failure. HISTORY OF PRESENT ILLNESS: Please see history and physical HOSPITAL COURSE: Pt is 68 y/o M with PMH of CAD s/p CABG 2016 with ischemic ca rdiomyopathy EF 35% as per Echo in 2016, Systolic and diastolic CHF, Hx of COPD, HTN, T2DM, CKD baseline Cr of 2 to 2.5, Landis esophagus, who was referred today from urology clinic due to respiratory distress. Patient had gone there to know about the prostate Biopsy results Acute respiratory failure with hypoxia and hypercapnia Due to CHF exacerbation ,and underlying untreated SANCHO Was on BIPAP now transitioned to CPAP. Albuterol/Ipratropium Neb q4hr Will need home oxygen Possible Pneumonia infiltrates in the CXR infective vs fluids. though procalcitonin in normal Morbid obesity with SANCHO and pulmonary hypertension and corpulmonale. continue with CPAP in hospital will need sleep study and follow up with pulmonary as outpatient. Moderate pulmonary hypertension with corpulmonate continue lasix. fluid restriction Acute Exacerbation of diastolic CHF and acute on chronic right heart failure EF 35% in Echo 2016 which seems to have improved. Current echo shows an EF of 75% Echo this admission Borderline concentric left ventricle hypertrophy with hyperkinetic wall motion. Mildly dilated left atrium with impairment of left ventricle (LV) diastolic function but current estimated mean left atrial pressure upper limits of normal. At least mild to moderately dilated right heart chambers with at least mild right ventricular hypertrophy and somewhat reduced right ventricular free wall motion with Doppler evidence of at least moderate pulmonary hypertension RVSP 45. Moderately dilated IVC with virtually absent r espiratory collapse in keeping with elevated central venous pressure - right heart failure. Three equal size aortic cusps that were moderately thickened without functional abnormality. Moderate mitral annular calcification without functional abnormality. Normal appearing tricuspid valve with at least mild - moderate insufficiency Strict I/O cont 80 mg bid Coreg, ASA, No ACEI or ARBS due to recent hyperkalemia. Metabolic encephalopathy on admission due to hypercarbia and hypoxia improved CORBY on CKD with Hyperkalemia continues to improve with diuresis. sec to likely obstructive uropathy as well as acute exacerbation of CHF possible cardiorenal syndrome No ACEI or ARBS or NSAIDS, All meds as per GFR. Elevated BUN now started to improve. disproportionate in nature to his creatinine. this is lagging behind the creatinine. Now seems to be improving. Hypertensive Urgency resolved. Hydralazine, coreg High dose diuretics. T2DM carb consistent diet. Lispro as per sliding scale Hyperlipidemia continue statin Hyperuricemia continue allopurinol Obesity complicating care Elevated PSA following with urology DISCHARGE MEDICATIONS: Please see below. ALLERGIES: Please see below. PHYSICAL EXAMINATION ON DISCHARGE: VITAL SIGNS: Please see below. General Exam: Positive: Alert, Cooperative, No Acute Distress Eye Exam: Positive: Conjunctiva & lids normal, EOMI ENT Exam: Positive: Atraumatic, Mucous membr. moist/pink, Pharynx Normal Neck Exam: Positive: Supple; Negative: JVD, thyromegaly Chest Exam: Positive: Normal air movement, Diminished Heart Exam: Positive: Rate Normal, Regular Rhythm, Normal S1, Normal S2; Negative: Murmurs, Rubs Telemetry: Positive: No significant arrhythmia Abdomen Exam: Positive: Normal bowel sounds, Soft; Negative: Tenderness, Hepatosplenomegaly Extremity Exam: Negative: Clubbing, Cyanosis, Edema Skin Exam: Positive: Nl turgor and temperature LABORATORY DATA: Please see below. ACTIVITY: [As tolerated]. DIET: Carb consistent diet, fluid restriction 1.8 liters. DISPOSITION: Home Health Service. DISCHARGE INSTRUCTIONS: Follow up PMD in 1 week Referral for sleep study DISCHARGE CONDITION: [Stable]. TIME SPENT ON DISCHARGE: 40 minutes. Vital Signs/I&Os Vital Signs Date Time Temp Pulse Resp B/P (MAP) Pulse Ox O2 Delivery O2 Flow Rate FiO2 09/28/18 10:30 3.0 09/28/18 08:57 116/54 09/28/18 08:57 71 09/28/18 06:00 97.4 20 93 09/28/18 02:49 Nasal Cannula 09/23/18 08:00 40 I&O- Last 24 Hours up to 6 AM 09/29/18 06:00 Intake Total 1020 ml Output Total 800 ml Balance 220 ml Laboratory Data Labs 24H Laboratory Tests 2 09/28/18 12:28: Bedside Glucose (Misc Panel) 210H FSBS Laboratory Tests Test 09/28/18 12:28 Range/Units Bedside Glucose (Misc Panel) 210 83-110 MG/DL Microbiology Microbiology 09/22/18 Blood Culture - Final, Complete NO GROWTH AFTER 5 DAYS 09/22/18 Blood Culture - Final, Complete NO GROWTH AFTER 5 DAYS Discharge Medications Scheduled Allopurinol (Allopurinol) 100 Mg Tablet, 100 MG PO DAILY, (Reported) Ascorbic Acid (Ascorbic Acid) 500 Mg Tab, 500 MG PO DAILY, (Reported) Aspirin (Aspirin EC) 81 Mg Tabec, 81 MG PO DAILY, (Reported) Atorvastatin Calcium (Atorvastatin Calcium) 40 Mg Tab, 40 MG PO QHS, (Reported) Calcitriol (Calcitriol) 0.25 Mcg Capsule, 0.25 MCG PO 3XW, (Reported) SATURDAY, SATURDAY, SATURDAY Carvedilol (Carvedilol) 12.5 Mg Tablet, 12.5 MG PO BID, (Reported) Ferrous Gluconate (Ferrous Gluconate) 324 Mg Tablet, 324 MG PO DAILY, (Reported) Gabapentin (Gabapentin) 100 Mg Capsule, 100 MG PO TID, (Reported) PATIENT STATES THAT HIS DOCTOR TOLD HIM TO STOP THIS MEDICATION TODAY Hydralazine HCl (Hydralazine HCl) 50 Mg Tablet, 50 MG PO TID Isosorbide Mononitrate (Isosorbide Mononitrate ER) 30 Mg Tab.er.24h, 30 MG PO DAILY, (Reported) Linagliptin (Tradjenta) 5 Mg Tab, 5 MG PO DAILY, (Reported) Pantoprazole Sodium (Pantoprazole Sodium) 40 Mg Tablet.dr, 40 MG PO DAILY, (Reported) Torsemide (Torsemide) 20 Mg Tab, 40 MG PO BID Allergies Coded Allergies: No Known Allergies (Unverified , 08/23/15) MIKE CRUZ MD Sep 29, 2018 11:08
== END 2018-09-28 13:10 | disposition home health service (06) | DRG 291 ==
LOC: EDBD 14:08 → M ED 14:08 → M ED INP 20:18 → M ICU 22:33 → M MS5PR 09-24 15:20
PROVIDERS: ADMIT Hospitalist; ATTEND Internal Medicine Nephrology
DX: I13.0 Hypertensive heart and chronic kidney disease with heart failure and stage 1 through stage 4 chronic kidney disease, or unspecified chronic kidney disease (principal); J18.9 Pneumonia, unspecified organism; I50.43 Acute on chronic combined systolic (congestive) and diastolic (congestive) heart failure; J96.02 Acute respiratory failure with hypercapnia; J96.01 Acute respiratory failure with hypoxia; G93.41 Metabolic encephalopathy; J44.0 Chronic obstructive pulmonary disease with (acute) lower respiratory infection; N17.9 Acute kidney failure, unspecified; E87.2 Acidosis; I24.8 Other forms of acute ischemic heart disease; Z68.41 Body mass index [BMI] 40.0-44.9, adult; I25.10 Atherosclerotic heart disease of native coronary artery without angina pectoris; I25.5 Ischemic cardiomyopathy; E78.5 Hyperlipidemia, unspecified; I16.0 Hypertensive urgency; E66.01 Morbid (severe) obesity due to excess calories; E03.9 Hypothyroidism, unspecified; G47.33 Obstructive sleep apnea (adult) (pediatric); E79.0 Hyperuricemia without signs of inflammatory arthritis and tophaceous disease; I27.29 Other secondary pulmonary hypertension; K22.70 Barrett's esophagus without dysplasia; R97.20 Elevated prostate specific antigen [PSA]; E11.22 Type 2 diabetes mellitus with diabetic chronic kidney disease; E87.5 Hyperkalemia; N18.9 Chronic kidney disease, unspecified; I25.2 Old myocardial infarction; Z95.1 Presence of aortocoronary bypass graft; Z79.82 Long term (current) use of aspirin; Z79.899 Other long term (current) drug therapy; Z87.891 Personal history of nicotine dependence

== ENCOUNTER → 2018-10-07 | Outpatient (REF) ==
[~2018-10-07] MED LIST changes: +ALLO100T PO; +CALC1CAP31 PO; +CARV12.5 PO; +GABA-1171 PO; +HYDR50TA PO; +ISOS30TA4 PO; +MORP2CAR IV; -MORP2SY IV; +PANT40TA3 PO; -SPIRONOLACTONE 25 MG TAB PO SCH
== END ==
LOC: M LAB 09:07